=== PATIENT | female | born 1970 | race Two or more races ===

== ENCOUNTER 2018-09-12 04:57 | Inpatient (IN) | payer OTHER ==
--- NOTE | 2018-09-12 07:28 | HP ---
Admitting History and Physical - Admission Chief Complaint: Pelvic pain History of Present Illness: 48 yo Para3, with pelvic pain is pre op for vaginal hysterectomy. History Source: Patient Limitations to Obtaining History: No Limitations - Past Medical History ...LMP: 09/01/18 ...: No ...Para: 3 - Past Surgical History Past Surgical History: Yes: Cholecystectomy - Smoking History Smoking history: Never smoked Have you smoked in the past 12 months: No - Alcohol/Substance Use Hx Alcohol Use: Yes (RARELY) Home Medications - Allergies Allergies/Adverse Reactions: Allergies Allergy/AdvReac Type Severity Reaction Status Date / Time Penicillins Allergy Severe Swelling Verified 09/12/18 06:57 - Home Medications Home Medications: Ambulatory Orders Ibuprofen [Motrin -] 400 mg PO PRN PRN 09/05/18 Naproxen 250 mg PO PRN PRN 09/05/18 Sumatriptan Succinate 100 mg PO PRN PRN 09/05/18 Acetaminophen [Tylenol -] 500 mg PO Q6H 09/12/18 Family Disease History - Family Disease History Family History: Unremarkable Review of Systems - Review of Systems Constitutional: reports: No Symptoms Eyes: reports: No Symptoms HENT: reports: No Symptoms Neck: reports: No Symptoms Cardiovascular: reports: No Symptoms Respiratory: reports: No Symptoms Gastrointestinal: reports: No Symptoms Genitourinary: reports: Pain Breasts: reports: No Symptoms Reported Musculoskeletal: reports: No Symptoms Integumentary: reports: No Symptoms Neurological: reports: No Symptoms Endocrine: reports: No Symptoms Hematology/Lymphatic: reports: No Symptoms Psychiatric: reports: No Symptoms Pain Intensity: 5 Physical Examination Vital Signs: Vital Signs Temperature 98.4 F 09/12/18 06:54 Pulse Rate 84 09/12/18 06:54 Respiratory Rate 16 09/12/18 06:54 Blood Pressure 131/71 09/12/18 06:54 O2 Sat by Pulse Oximetry (%) 99 09/12/18 06:57 Constitutional: Yes: Well Nourished Eyes: Yes: Conjunctiva Clear HENT: Yes: Atraumatic Neck: Yes: Supple Cardiovascular: Yes: Regular Rate and Rhythm Respiratory: Yes: Regular Gastrointestinal: Yes: Normal Bowel Sounds ...Rectal Exam: Yes: WNL Renal/: Yes: WNL Breast(s): Yes: WNL Musculoskeletal: Yes: WNL Extremities: Yes: WNL Wound/Incision: Yes: Well Approximated Neurological: Yes: Alert, Oriented ...Motor Strength: WNL Psychiatric: Yes: Alert, Oriented Problem List - Problems (1) Pelvic pain Code(s): R10.2 - PELVIC AND PERINEAL PAIN Assessment/Plan Pelvic pain Pre op for TVH Consent signed Anesthesia to see patient
[2018-09-12] MEDS ORDERED: fentaNYL CITRATE 250 MCG/5 ML VIAL ONE (07:33)
[2018-09-12] MEDS ORDERED: LIDOCAINE HCL/PF 2% SDV 5ML VIAL ONE (07:33)
[2018-09-12] MEDS ORDERED: MIDAZOLAM HCL 2 MG/2 ML SINGLE DOSE VIAL ONE (07:34)
[2018-09-12] MEDS ORDERED: PROPOFOL 20 ML ONE ×2 (07:34)
[2018-09-12] MEDS ORDERED: ROCURONIUM BROMIDE 50 MG/5 ML SYRINGE ONE (07:34)
[2018-09-12] MEDS ORDERED: CLINDAMYCIN 600 MG PREMIX BAG IVPB ONE (07:39)
[2018-09-12] MEDS ORDERED: GENTAMICIN 80MG PREMIX BAG IVPB ONE (07:39)
[2018-09-12] MEDS ORDERED: GENTAMICIN SO4 80 MG/2 ML VIAL ONE (07:51)
[2018-09-12] MEDS ORDERED: DEXAMETHASONE SOD PHOSPHATE 4 MG/1 ML VIAL ONE (08:20)
[2018-09-12] MEDS ORDERED: CLINDAMYCIN PHOSPHATE 600 MG/4 ML VIAL ONE (08:20)
[2018-09-12] MEDS ORDERED: GLYCOPYRROLATE 0.2 MG/1 ML VIAL ONE (08:54)
[2018-09-12] MEDS ORDERED: NEOSTIGMINE METHYLSULFATE 0.5 MG/ML - 10 ML MDV ONE (08:54)
[2018-09-12] MEDS ORDERED: IBUPROFEN 800 MG/8 ML IJ IVPB PRN ×2 (09:09→09:23)
[2018-09-12] MEDS ORDERED: oxyCODONE HCL 5 MG TABLET PO PRN (09:09)
[2018-09-12] MEDS ORDERED: SUMAtriptan SUCCINATE 50 MG TABLET PO PRN (09:13)
[2018-09-12] MEDS ORDERED: DEXTROSE 5%-LACTATED RINGERS 1,000 ML IV SCH (09:15)
--- NOTE | 2018-09-12 09:15 | OP ---
Operative Note - Note: Operative Date: 09/12/18 Pre-Operative Diagnosis: Pelvic pain Operation: Total vaginal hysterectomy Findings: Leiomyomatous uterus Post-Operative Diagnosis: Other (Leiomyomatous uterus) Surgeon: Shani Guerrero Print Line Supervisor: Ezio Evans Anesthesia: General Specimens Removed: Uterus / cervix Estimated Blood Loss (mls): 200
[2018-09-12] MEDS ORDERED: PROMETHAZINE HCL 25 MG/1 ML VIAL IVPUSH PRN (09:23)
[2018-09-12] MEDS ORDERED: ONDANSETRON 4 MG/2 ML VIAL IVPUSH PRN (09:23)
[2018-09-12] MEDS ORDERED: PROMETHAZINE HCL 25 MG/1 ML VIAL ONE (09:23)
[2018-09-12] MEDS ORDERED: ACETAMINOPHEN 1000 MG/100 ML VIAL (NON FORMULARY) IVPB PRN (09:24)
[2018-09-12] MEDS ORDERED: FAMOTIDINE 20 MG/50 ML IVPB 20 MG/50 ML MG IVPB ONE ×2 (09:24)
[2018-09-12] MEDS ORDERED: ACETAMINOPHEN INJECTION 100 ML IVPB ONE (09:26)
[2018-09-12] MEDS ORDERED: LACTATED RINGERS SOLUTION 1,000 ML IV SCH (09:30)
[2018-09-12] MEDS ORDERED: PROMETHAZINE HCL 25 MG/1 ML VIAL IVPB ONE (09:45)
[2018-09-12] MEDS ORDERED: ACETAMINOPHEN 1000 MG/100 ML VIAL (NON FORMULARY) IVPB ONE (10:00)
[2018-09-12] MEDS ORDERED: IBUPROFEN 800 MG/8 ML IJ IVPB ONE (11:00)
--- NOTE | 2018-09-12 11:21 | PN ---
Progress Note (short form) - Note Progress Note: I assisted at the surgery throughout the entirety of the case.
[2018-09-12 13:37] LABS: HEMOGLOBIN 8.9 GM/dL (10.7-15.3); MEAN CELL VOLUME 94.2 fl (80-96)
[2018-09-12 13:45] LABS: HEMATOCRIT 26.3 % (32.4-45.2); MEAN PLT VOLUME 8.2 fl (7.5-11.1); PLATELET COUNT 293 K/MM3 (134-434); RBC 2.79 M/mm3 (3.60-5.2); RDW 12.7 % (11.6-15.6); WHITE BLOOD COUNT 14.1 K/mm3 (4.0-10.0)
--- NOTE | 2018-09-12 19:55 | PN ---
Progress Note (short form) - Note Progress Note: Patient seen and evaluated, she c/o pain under the rib cage upon breathing. She has a nasal cannula in place. Vitals are stable. She denies any SOB. PE : Chest : CTA, no rales ABD : Soft, no distention Pelvis : Vaginal packing in place, no bleeding. Lerma catheter in place A/P : Status post vaginal hysterectomy Chest / Abdominal pain F/U repeat CBC F/U chest / Abdominal CT Increase dosage of Percocet Continue close monitoring Problem List - Problems (1) Pelvic pain Code(s): R10.2 - PELVIC AND PERINEAL PAIN
[2018-09-12] MEDS: oxyCODONE HCL 5 MG TABLET PO PRN (20:26)
[2018-09-12] MEDS: ACETAMINOPHEN 325 MG TABLET (FP) PO PRN (20:27)
[2018-09-12 21:02] LABS: BASO % 0.1 % (0-2.0); HEMATOCRIT 23.1 % (32.4-45.2); HEMOGLOBIN 7.9 GM/dL (10.7-15.3); LYMPH % 5.4 % (8-40); MCH 31.5 pg (25.7-33.7); MEAN CELL VOLUME 92.5 fl (80-96); MEAN PLT VOLUME 8.2 fl (7.5-11.1); MONO % 4.9 % (3.8-10.2); NEUT % 89.6 % (42.8-82.8); PLATELET COUNT 271 K/MM3 (134-434); WHITE BLOOD COUNT 14.7 K/mm3 (4.0-10.0)
[2018-09-13] MEDS: ACETAMINOPHEN 325 MG TABLET (FP) PO PRN (00:30)
[2018-09-13] MEDS: oxyCODONE HCL 5 MG TABLET PO PRN ×2 (00:30→21:47)
[2018-09-13] MEDS ORDERED: GENTAMICIN SO4 80 MG/2 ML VIAL IVPB ONE (02:45)
[2018-09-13] MEDS ORDERED: CLINDAMYCIN 600MG PREMIX IVPB 600 MG/50 ML BAG IVPB ONE (02:45)
[2018-09-13] MEDS ORDERED: SIMETHICONE 80 MG TAB.CHEW (FP) PO SCH (06:00)
[2018-09-13 07:54] LABS: BASO % 0.3 % (0-2.0); EOS % 0.2 % (0-4.5); HEMATOCRIT 19.6 % (32.4-45.2); LYMPH % 11.9 % (8-40); MCH 32.1 pg (25.7-33.7); MCHC 34.2 g/dl (32.0-36.0); MEAN PLT VOLUME 8.2 fl (7.5-11.1); MONO % 6.7 % (3.8-10.2); NEUT % 80.9 % (42.8-82.8); PLATELET COUNT 232 K/MM3 (134-434); RBC 2.08 M/mm3 (3.60-5.2); RDW 12.9 % (11.6-15.6); WHITE BLOOD COUNT 12.1 K/mm3 (4.0-10.0)
[2018-09-13] MEDS: MORPHINE SULFATE 2 MG/ML VIAL IVPUSH PRN ×4 (08:58→19:21)
[2018-09-13 09:19] LABS: HEMOGLOBIN 6.7 GM/dL (10.7-15.3)
--- NOTE | 2018-09-13 09:29 | PN ---
Teaching Attending Note Name of Resident: Shakira Garcia ATTENDING PHYSICIAN STATEMENT I saw and evaluated the patient. I reviewed the resident's note and discussed the case with the resident. I agree with the resident's findings and plan as documented. SUBJECTIVE: Consult: Acute shortness of breath s/p POD #1 vaginal hysterectomy Patient is a 48 year old female with a one day hx of vaginal hysterectomy c/o having shortness of breath and unable to take deep breaths. OBJECTIVE: Vital Signs Temperature 98.4 F 09/13/18 06:00 Pulse Rate 101 H 09/13/18 06:00 Respiratory Rate 18 09/13/18 06:00 Blood Pressure 104/64 09/13/18 06:00 O2 Sat by Pulse Oximetry (%) 96 09/12/18 23:00 GENERAL: The patient is awake, alert, and fully oriented, in no acute distress. HEAD: Normal with no signs of trauma. EYES: PERRL, extraocular movements intact, sclera anicteric, conjunctiva clear. ENT: Ears normal, oropharynx clear without exudates, moist mucous membranes. NECK: Trachea midline, full range of motion, supple. LUNGS: Breath sounds equal, clear to auscultation bilaterally, no wheezes, no crackles, no accessory muscle use. HEART: Regular rate and rhythm, S1, S2 without murmur, rub or gallop. ABDOMEN: Soft, nontender, nondistended, normoactive bowel sounds, no guarding, no rebound, no hepatosplenomegaly, no masses. EXTREMITIES: 2+ pulses, warm, well-perfused, no edema. NEUROLOGICAL: Cranial nerves II through XII grossly intact. Normal speech, gait not observed. PSYCH: Normal mood, normal affect. SKIN: Warm, dry, normal turgor, no rashes or lesions noted CBCD WBC 12.1 K/mm3 (4.0-10.0) H 09/13/18 06:25 RBC 2.08 M/mm3 (3.60-5.2) L 09/13/18 06:25 Hgb 6.7 GM/dL (10.7-15.3) L* 09/13/18 06:25 Hct 19.6 % (32.4-45.2) L D 09/13/18 06:25 MCV 94.0 fl (80-96) 09/13/18 06:25 MCHC 34.2 g/dl (32.0-36.0) 09/13/18 06:25 RDW 12.9 % (11.6-15.6) 09/13/18 06:25 Plt Count 232 K/MM3 (134-434) 09/13/18 06:25 MPV 8.2 fl (7.5-11.1) 09/13/18 06:25 Current Medications Generic Name Dose Route Start Last Admin Trade Name Freq PRN Reason Stop Dose Admin Acetaminophen 1,000 mg 09/12/18 09:24 09/12/18 15:51 Ofirmev Injection - IVPB 1,000 mg Q6H PRN Administration FEVER Acetaminophen 650 mg 09/12/18 20:12 09/13/18 00:30 Tylenol - PO 650 mg Q4H PRN Administration PAIN 1-5 Fentanyl 50 mcg 09/12/18 09:23 Sublimaze Injection - IVPUSH [id number] PRN PAIN-PACU ORDER X 4 DOSES ONLY Dextrose/Lactated Ringer's 1,000 mls @ 125 mls/hr 09/12/18 09:15 09/12/18 15: 50 D5-Lr - IV 125 mls/hr ASDIR JUDY Administration Lactated Ringer's 1,000 mls @ 125 mls/hr 09/12/18 09:30 09/12/18 15:50 Lactated Ringers Solution IV Not Given ASDIR JUDY Ibuprofen 800 mg 09/12/18 09:09 Caldolor Injection - IVPB Q8H PRN FEVER Ibuprofen 800 mg 09/12/18 09:23 Caldolor Injection - IVPB Q6H PRN Pain - Pacu Morphine Sulfate 2 mg 09/13/18 08:45 09/13/18 08:58 Morphine Sulfate IVPUSH 2 mg Q3H PRN Administration PAIN LEVEL 6-10 Ondansetron HCl 4 mg 09/12/18 09:23 Zofran Injection IVPUSH Q6H PRN NAUSEA AND/OR VOMITING Oxycodone HCl 5 mg 09/12/18 09:09 09/12/18 17:04 Roxicodone - PO 5 mg Q4H PRN Administration PAIN LEVEL 4 - 6 Oxycodone HCl 10 mg 09/12/18 20:12 09/13/18 00:30 Roxicodone - PO 10 mg Q4H PRN Administration PAIN 1-5 Promethazine HCl 12.5 mg 09/12/18 09:23 Phenergan Injection - IVPUSH Q6H PRN NAUSEA-FOR RESCUE AFTER 15 MIN Simethicone 80 mg 09/13/18 06:00 Mylicon - PO TID JUDY Sumatriptan Succinate 100 mg 09/12/18 09:13 Imitrex - PO DAILY PRN HEADACHE ASSESSMENT AND PLAN: Patient is a 48 year old female with a one day hx of vaginal hysterectomy c/o having shortness of breath and unable to take deep breaths. #POD #1 Status post vaginal hysterectomy c/o having shortness of breath stat CTA of the chest and abdomen and pelvis ordered, type and screen and transfuse 2 units of PRBC. discussed with , will see the patient , and discussed with , will transfer the patient to ICU. will transfuse 2 units of PrBC. when stable to CTA of the chest and Pelvis. DVT Px; Teds
--- NOTE | 2018-09-13 10:27 | CONSULT ---
Consultation: REQUESTING PROVIDER:Dr. Guerrero CONSULT REQUEST: We have been asked to medically evaluate this patient for SOB. HISTORY OF PRESENT ILLNESS: Patient is a 48 year old female with past medical history of endometriosis, migraines, POD 1 total vaginal hysterectomy for leiomyoma uteri, presents with difficulty breathing and pleuritic chest pain. Patient reported since the surgery yesterday, she has been having difficulty breathing because of pleuritic pain every time she takes deep breaths. She also reports feeling tight around her upper abdomen. She could not tolerate incentive spirometry ( could only do 500cc) because of the pain and becomes tachycardic to 120s. Patient has not passed flatus/bowel movement. Patient denies any fever, chills , headache, palpitations. REVIEW OF SYSTEMS: CONSTITUTIONAL: Absent: fever, chills, diaphoresis, generalized weakness, malaise, loss of appetite, weight change HEENT: Absent: rhinorrhea, nasal congestion, throat pain, throat swelling, difficulty swallowing, mouth swelling, ear pain, eye pain, visual changes CARDIOVASCULAR: Absent: chest pain, syncope, palpitations, irregular heart rate, lightheadedness , peripheral edema RESPIRATORY: shortness of breath, pleuritic pain Absent: cough, dyspnea with exertion, orthopnea, wheezing, stridor, hemoptysis GASTROINTESTINAL:abdominal pain Absent: abdominal distension, nausea, vomiting, diarrhea, constipation, melena, hematochezia GENITOURINARY: Absent: dysuria, frequency, urgency, hesitancy, hematuria, flank pain, genital pain MUSCULOSKELETAL: Absent: myalgia, arthralgia, joint swelling, back pain, neck pain SKIN: Absent: rash, itching, pallor HEMATOLOGIC/IMMUNOLOGIC: Absent: easy bleeding, easy bruising, lymphadenopathy, frequent infections ENDOCRINE: Absent: unexplained weight gain, unexplained weight loss, heat intolerance, cold intolerance NEUROLOGIC: Absent: headache, focal weakness or paresthesias, dizziness, unsteady gait, seizure, mental status changes, bladder or bowel incontinence PSYCHIATRIC: Absent: anxiety, depression, suicidal or homicidal ideation, hallucinations. PHYSICAL EXAMINATION Vital Signs - 24 hr 09/12/18 09/12/18 09/12/18 12:15 12:30 12:37 Temperature F L Pulse Rate 70 71 Respiratory 13 14 Rate Blood Pressure 101/56 L 118/60 O2 Sat by Pulse 100 100 Oximetry (%) 07/09/12/18 09/12/18 12:45 13:00 13:15 Temperature Pulse Rate 69 70 68 Respiratory 13 13 16 Rate Blood Pressure 111/62 96/66 110/64 O2 Sat by Pulse 100 100 100 Oximetry (%) 09/12/18 09/12/18 09/12/18 13:30 13:45 14:00 Temperature Pulse Rate 70 68 72 Respiratory 16 16 16 Rate Blood Pressure 108/66 107/64 110/62 O2 Sat by Pulse 100 100 100 Oximetry (%) 09/12/18 09/12/18 09/12/18 14:15 15:48 18:28 Temperature 98.5 F 98.4 F 98.4 F Pulse Rate 70 85 85 Respiratory 16 17 18 Rate Blood Pressure 100/68 118/68 118/68 O2 Sat by Pulse 100 100 Oximetry (%) 09/12/18 09/12/18 09/13/18 18:30 23:00 00:05 Temperature 98.4 F Pulse Rate 105 H Respiratory 18 18 16 Rate Blood Pressure 112/59 L O2 Sat by Pulse 100 96 Oximetry (%) 09/13/18 09/13/18 09/13/18 02:00 04:00 06:00 Temperature 98.7 F 99.0 F 98.4 F Pulse Rate 102 H 104 H 101 H Respiratory 18 18 18 Rate Blood Pressure 105/63 117/68 104/64 O2 Sat by Pulse Oximetry (%) GENERAL: Awake, alert, and fully oriented, in mild distress. HEAD: Normal with no signs of trauma. EYES: PERRLA, EOMI, sclera anicteric, conjunctiva clear. EARS, NOSE, THROAT: +pale, dry mucous membranes. NECK: Normal range of motion, supple. LUNGS: Decreased breath sounds bilateral bases HEART: Regular rate and rhythm, normal S1 and S2 without murmur, rub or gallop. ABDOMEN: +diffuse tenderness, NABS MUSCULOSKELETAL: Normal range of motion at all joints. UPPER EXTREMITIES: 2+ pulses, warm, well-perfused. No peripheral edema. LOWER EXTREMITIES: 2+ pulses, warm, well-perfused. No peripheral edema. NEUROLOGICAL: Cranial nerves II-XII intact. Normal speech. PSYCHIATRIC: Cooperative. Good eye contact. Appropriate mood and affect. SKIN: Warm, dry, normal turgor, no rashes or lesions noted. Laboratory Results - last 24 hr 09/12/18 09/12/18 09/12/18 06:14 13:15 20:00 WBC 14.1 H 14.7 H RBC 2.79 L 2.50 L Hgb 8.9 L 7.9 L Hct 26.3 L D 23.1 L MCV 94.2 92.5 MCH 32.0 31.5 MCHC 34.0 34.0 RDW 12.7 13.0 Plt Count 293 271 MPV 8.2 8.2 Absolute Neuts (auto) 13.2 H Neutrophils % 89.6 H D Lymphocytes % 5.4 L D Monocytes % 4.9 Eosinophils % 0.0 D Basophils % 0.1 Nucleated RBC % 0 Crossmatch See Detail 09/13/18 06:25 WBC 12.1 H RBC 2.08 L Hgb 6.7 L* Hct 19.6 L D MCV 94.0 MCH 32.1 MCHC 34.2 RDW 12.9 Plt Count 232 MPV 8.2 Absolute Neuts (auto) 9.8 H Neutrophils % 80.9 Lymphocytes % 11.9 D Monocytes % 6.7 Eosinophils % 0.2 D Basophils % 0.3 Nucleated RBC % 0 Crossmatch Active Medications Generic Name Dose Route Start Last Admin Trade Name Freq PRN Reason Stop Dose Admin Acetaminophen 1,000 mg 09/12/18 09:24 09/12/18 15:51 Ofirmev Injection - IVPB 1,000 mg Q6H PRN Administration FEVER Acetaminophen 650 mg 09/12/18 20:12 09/13/18 00:30 Tylenol - PO 650 mg Q4H PRN Administration PAIN 1-5 Fentanyl 50 mcg 09/12/18 09:23 Sublimaze Injection - IVPUSH [id number] PRN PAIN-PACU ORDER X 4 DOSES ONLY Dextrose/Lactated Ringer's 1,000 mls @ 125 mls/hr 09/12/18 09:15 09/12/18 15: 50 D5-Lr - IV 125 mls/hr ASDIR JUDY Administration Lactated Ringer's 1,000 mls @ 125 mls/hr 09/12/18 09:30 09/12/18 15:50 Lactated Ringers Solution IV Not Given ASDIR JUDY Ibuprofen 800 mg 09/12/18 09:09 Caldolor Injection - IVPB Q8H PRN FEVER Ibuprofen 800 mg 09/12/18 09:23 Caldolor Injection - IVPB Q6H PRN Pain - Pacu Morphine Sulfate 2 mg 09/13/18 08:45 09/13/18 08:58 Morphine Sulfate IVPUSH 2 mg Q3H PRN Administration PAIN LEVEL 6-10 Ondansetron HCl 4 mg 09/12/18 09:23 Zofran Injection IVPUSH Q6H PRN NAUSEA AND/OR VOMITING Oxycodone HCl 5 mg 09/12/18 09:09 09/12/18 17:04 Roxicodone - PO 5 mg Q4H PRN Administration PAIN LEVEL 4 - 6 Oxycodone HCl 10 mg 09/12/18 20:12 09/13/18 00:30 Roxicodone - PO 10 mg Q4H PRN Administration PAIN 1-5 Promethazine HCl 12.5 mg 09/12/18 09:23 Phenergan Injection - IVPUSH Q6H PRN NAUSEA-FOR RESCUE AFTER 15 MIN Simethicone 80 mg 09/13/18 06:00 Mylicon - PO TID JUDY Sumatriptan Succinate 100 mg 09/12/18 09:13 Imitrex - PO DAILY PRN HEADACHE ASSESSMENT/PLAN: Patient is a 48 year old female with no significant past medical history, POD 1 total vaginal hysterectomy for leiomyoma uteri, presents with difficulty breathing and pleuritic chest pain. #SOB due to pleuritic pain, atelectasis -maintain O2 sat >90% -Will give IV Morphine 2mg q3h PRN for pain -CXR: pneumoperitoneum -Chest CT ordered -incentive spirometry q1h -CMP -PT/INR -Pulmonology (Dr. Fonseca) consulted. #Anemia 2/2 bleeding in abdomen/pelvis -Hgb dropped to 6.7 this morning. -Transfuse pRBCs PRN to keep Hgb >7.0 -CTAP (09/12): hemoperitoneum seen within the pelvis bilaterally. Additional isoattenuating free fluid within the abdomen and pelvis bilaterally. Nonspecific pneumoperitoneum. Very small bilateral pleural effusions. -SUrgery (Dr. Joseph) consulted. -Transfer to ICU for closer monitoring #FEN -IV LR @125cc/hr -BMP monitoring -NPO, diet as per OB/Surgery #Prophylaxis -SCDs Dispo: We will continue to follow the patient. Thank you for this consultative opportunity. Visit type - Emergency Visit Emergency Visit: Yes ED Registration Date: 09/12/18 Care time: The patient presented to the Emergency Department on the above date and was hospitalized for further evaluation of their emergent condition. - New Patient This patient is new to me today: Yes Date on this admission: 09/14/18 - Critical Care Critical Care patient: Yes Total Critical Care Time (in minutes): 35 Critical Care Statement: The care of this patient involved high complexity decision making to prevent further life threatening deterioration of the patient 's condition and/or to evaluate & treat vital organ system(s) failure or risk of failure. ATTENDING PHYSICIAN STATEMENT I saw and evaluated the patient. I reviewed the resident's note and discussed the case with the resident. I agree with the resident's findings and plan as documented. SUBJECTIVE: OBJECTIVE: ASSESSMENT AND PLAN:
[2018-09-13 10:47] LABS: INR 1.14 (0.83-1.09); PROTHROMBIN TIME (PATIENT) 13.5 SEC (9.7-13.0)
[2018-09-13 11:23] LABS: ALBUMIN 2.6 g/dl (3.4-5.0); BILIRUBIN,TOTAL 0.4 mg/dL (0.2-1); BLOOD UREA NITROGEN 7.4 mg/dL (7-18); CALCIUM 7.8 mg/dL (8.5-10.1); CREATININE 0.7 mg/dL (0.55-1.3); POTASSIUM 3.9 mmol/L (3.5-5.1)
--- NOTE | 2018-09-13 11:45 | CONSULT ---
Consult Consult Specialty:: General Surgery Reason for Consultation:: post op pneumoperitoneum? and SOB - History of Present Illness Chief Complaint: SOB History of Present Illness: 48 yo no significant PMH Para3, with pelvic pain is pre op for vaginal hysterectomy. Called postop in consultation POD# s/p total vaginal hysterectomy. She had a ct scan showing hemo and pneumoperitonuim. She has been tachycardic mosto of the night. She has made inadequate urine. H&H dropped for 6 grams from a prepop 9 grams. She has cmoplaints of abdominal pain and diaphragmnatic irritation. - History Source History Provided By: Patient, Medical Record Limitations to Obtaining History: No Limitations - Past Medical History ...LMP: 09/01/18 ...: No - Past Surgical History Past Surgical History: Yes: Cholecystectomy - Alcohol/Substance Use Hx Alcohol Use: Yes (RARELY) - Smoking History Smoking history: Never smoked Have you smoked in the past 12 months: No Home Medications - Allergies Allergies/Adverse Reactions: Allergies Allergy/AdvReac Type Severity Reaction Status Date / Time Penicillins Allergy Severe Swelling Verified 09/12/18 06:57 - Home Medications Home Medications: Ambulatory Orders Ibuprofen [Motrin -] 400 mg PO PRN PRN 09/05/18 Naproxen 250 mg PO PRN PRN 09/05/18 Sumatriptan Succinate 100 mg PO PRN PRN 09/05/18 Acetaminophen [Tylenol -] 500 mg PO Q6H 09/12/18 Review of Systems - Review of Systems Constitutional: denies: Chills, Fever Eyes: denies: Blind Spots, Recent Change in Vision HENT: denies: Difficult Swallowing, Throat Pain Neck: denies: Decreased ROM, Tenderness Cardiovascular: denies: Chest Pain Respiratory: reports: SOB. denies: Cough Gastrointestinal: reports: Abdominal Pain. denies: Bloating, Constipation Genitourinary: denies: Discharge, Dysuria Breasts: reports: No Symptoms Reported. denies: Pain Musculoskeletal: denies: Back Pain, Joint Swelling, Muscle Weakness Integumentary: denies: Blister, Bruising, Lesions Neurological: denies: Syncope, Tremors Endocrine: denies: Unexplained Weight Gain, Unexplained Weight Loss Hematology/Lymphatic: denies: Easily Bruised, Excessive Bleeding Psychiatric: denies: Anxiety, Depression Physical Exam Vital Signs: Vital Signs Temperature 98.4 F 09/13/18 06:00 Pulse Rate 101 H 09/13/18 06:00 Respiratory Rate 18 09/13/18 06:00 Blood Pressure 104/64 09/13/18 06:00 O2 Sat by Pulse Oximetry (%) 96 09/12/18 23:00 Vital Signs Period Temp Pulse Resp BP Sys/Jeffery Pulse Ox Last 24 Hr F-99.0 F 68-125 13-18 96-144/56-72 96-100 Intake & Output 09/12/18 09/13/18 09/13/18 23:59 07:59 15:59 Intake Total 1350 Output Total 400 Balance 950 Intake: IV 1250 D5-Lr - 1,000 ml @ 125 1250 mls/hr IV ASDIR JUDY Rx#: [id number] IVPB 100 Output: Urine 400 Lerma 400 Other: Voiding Method Indwelling Catheter Toilet Constitutional: Yes: Well Nourished, No Distress, Calm Eyes: Yes: Conjunctiva Clear, EOM Intact HENT: Yes: Atraumatic, Normocephalic Neck: Yes: Supple, Trachea Midline Cardiovascular: Yes: Regular Rate and Rhythm, S1, S2 Respiratory: Yes: Regular, CTA Bilaterally Gastrointestinal: Yes: Normal Bowel Sounds, Soft. No: Tenderness (RUQ), Tenderness, Rebound Renal/: No: CVA Tenderness - Left, CVA Tenderness - Right Neurological: Yes: Alert, Oriented Psychiatric: Yes: Alert, Oriented Labs: CBC, BMP 09/13/18 06:25 09/13/18 10:20 Imaging - Results Cat Scan: Report Reviewed, Image Reviewed (hemo- and pneumo-peritonium) Problem List - Problems (1) Hemoperitoneum Assessment/Plan: 48 yo female with less then 24hrs ppost of from vaginal hysterectomy pneumoperitoniem and even a small amount of hemoperitoneium is not concerning post operative day one. However given trachycardia, low urine output, abdominal pain and SOB, drop in H&H i would consider the possibility of on going bleeding. Transfer to ICU NPO and IVF resuscitation trend CBC Transfuse as indicated Diesel Motor Mechanic re-evaluation is appreciated Agree with plan for IR embolization once stable No acue intervention from general surgery Thank you for the opportunity to participate in the care of this patient. Code(s): K66.1 - HEMOPERITONEUM (2) Pneumoperitoneum Code(s): K66.8 - OTHER SPECIFIED DISORDERS OF PERITONEUM (3) Abdominal pain in female patient Code(s): R10.9 - UNSPECIFIED ABDOMINAL PAIN (4) H/O total vaginal hysterectomy Code(s): Z90.710 - ACQUIRED ABSENCE OF BOTH CERVIX AND UTERUS
--- NOTE | 2018-09-13 11:51 | OP ---
DATE OF OPERATION: 09/12/2018 PREOPERATIVE DIAGNOSIS: Pelvic pain. POSTOPERATIVE DIAGNOSES: Pelvic pain, leiomyoma of the uterus. PROCEDURE: Total vaginal hysterectomy. SURGEON: Shani Guerrero MD HUNTING SALES ASSOCIATE: ANESTHESIA: General. ESTIMATED BLOOD LOSS: 200 mL. DESCRIPTION OF PROCEDURE: Patient was taken to the operating room, where general anesthesia was administered. Patient was then placed in lithotomy position. She was then prepped and draped in appropriate sterile fashion. A weighted speculum was placed in the vagina and the cervix grasped with 2 sweethearts. The cervix was then injected circumferentially with Pitressin. The cervix was then circumferentially incised with the Bovie cautery, and the bladder was dissected off the pubovesical cervical fascia anteriorly with the sponge-stick and Metzenbaum scissors. The anterior cul-de-sac was entered sharply. The same procedure was performed posteriorly, and the posterior cul-de-sac was entered sharply with the Rausch scissors. At this point, a Johnie clamp was placed over the uterosacral ligament on either side. These ligaments were then clamped using the LigaSure device, burned, and cut. The cardinal ligaments were then clamped on both sides using the LigaSure device in a similar fashion. Then, the uterine arteries and the broad ligaments were then serially clamped, burned, and cut using the LigaSure device on both sides. Attempt to reach the cornua was difficult because of the enlarged irregular-shaped myomatous uterus. Then, on the left side, a Lachelle was placed over the cornu, but on the left side, the uterus was detached before cutting, and then, on the right side, a long Lachelle was placed over the cornu, and using the LigaSure device, it was clamped and burned and cut and also a suture was placed. The myomatous uterus was then removed, and Lachelle clamps were placed over the edge of the vagina, and hemostasis was obtained using several sutures over the pedicles. Then, hemostasis was assured. So, then, the vaginal cuff angles were closed with figure-of-8 stitches of 0 Vicryl in a running fashion. The vagina was then completely irrigated and a 1-inch Iodoform packing was then placed in the vagina. All instruments were removed from the vagina, and the patient was taken out of dorsal lithotomy position and awakened from general anesthesia. She was taken to PACU in stable condition. Sponge, lap, needle, and instrument counts were correct x2. SHANI GUERRERO M.D. [id number]
[2018-09-13] MEDS ORDERED: morphine SULFATE 4 MG/ML VIAL IVPUSH ONE (12:33)
[2018-09-13 12:46] LABS: MCH 31.5 pg (25.7-33.7); MCHC 33.5 g/dl (32.0-36.0); MEAN CELL VOLUME 94.1 fl (80-96); MEAN PLT VOLUME 7.3 fl (7.5-11.1); PLATELET COUNT 219 K/MM3 (134-434); RBC 1.92 M/mm3 (3.60-5.2)
[2018-09-13] MEDS ORDERED: SUMAtriptan SUCCINATE 50 MG TABLET PO PRN (12:55)
[2018-09-13] MEDS ORDERED: LACTATED RINGERS SOLUTION 1,000 ML IV SCH (12:55)
[2018-09-13] MEDS ORDERED: DEXTROSE 5%-LACTATED RINGERS 1,000 ML IV SCH (12:55)
[2018-09-13] MEDS ORDERED: ACETAMINOPHEN 325 MG TABLET (FP) PO PRN (12:55)
[2018-09-13 13:03] LABS: INR 1.23 (0.83-1.09); PROTHROMBIN TIME (PATIENT) 14.6 SEC (9.7-13.0)
[2018-09-13 13:06] LABS: ACTIVATED PTT 24.8 SECONDS (25.2-36.5)
--- NOTE | 2018-09-13 13:22 | CONSULT ---
Consultation: REQUESTING PROVIDER: Dr. Shepard CONSULT REQUEST: We have been asked to medically evaluate this patient for ICU management of suspected intraperitoneal bleed. HISTORY OF PRESENT ILLNESS: Pt. is a 48 y.o. F w/ PMHx. of Endometriosis, uterine fibroids, and Migraines presents to ICU on POD#1 from transvaginal hysterectomy. Pt. states that she was having increased menstrual cycle before the procedure (5-7 days of menstruation, usually 4 days and 4-5 soaked pads daily). Pt. states that she was "fine" just before the surgery however a few hours after the surgery she has developed severe and worsening abdominal pain that started in the RUQ and has since extended across the superior aspect of the abdomen and not present in the lower aspect of the abdomen. Pt. states that she has shortness of breath because of pain associated with breathing and pain with movement. Pt. endorses 21 lbs. weight loss from january to March and has not regained the weight. Pt. endorses decreased appetite since January. Pt. endorses intermittent night sweats over the last 2 months. Pt. endorses lightheadedness and dizziness that started with the worsening abdominal pain. Pt. denies chest pain at this time. Per chart review Pt. has had 200-500ml of estimated blood loss during the procedure and did not require any transfusions. REVIEW OF SYSTEMS: As per HPI PHYSICAL EXAMINATION Vital Signs - 24 hr 09/12/18 09/12/18 09/12/18 13:30 13:45 14:00 Temperature Pulse Rate 70 68 72 Respiratory 16 16 16 Rate Blood Pressure 108/66 107/64 110/62 O2 Sat by Pulse 100 100 100 Oximetry (%) 09/12/18 09/12/18 09/12/18 14:15 15:48 18:28 Temperature 98.5 F 98.4 F 98.4 F Pulse Rate 70 85 85 Respiratory 16 17 18 Rate Blood Pressure 100/68 118/68 118/68 O2 Sat by Pulse 100 100 Oximetry (%) 09/12/18 09/12/18 09/13/18 18:30 23:00 00:05 Temperature 98.4 F Pulse Rate 105 H Respiratory 18 18 16 Rate Blood Pressure 112/59 L O2 Sat by Pulse 100 96 Oximetry (%) 09/13/18 09/13/18 09/13/18 02:00 04:00 06:00 Temperature 98.7 F 99.0 F 98.4 F Pulse Rate 102 H 104 H 101 H Respiratory 18 18 18 Rate Blood Pressure 105/63 117/68 104/64 O2 Sat by Pulse Oximetry (%) 09/13/18 09/13/18 09/13/18 08:00 09:00 10:00 Temperature 98.0 F 98.0 F Pulse Rate 125 H 112 H Respiratory 18 16 16 Rate Blood Pressure 144/70 126/72 O2 Sat by Pulse 96 Oximetry (%) 09/13/18 12:30 Temperature 98.0 F Pulse Rate 118 H Respiratory 21 H Rate Blood Pressure 139/75 O2 Sat by Pulse Oximetry (%) GENERAL: Awake, alert, and fully oriented, in no acute distress. HEAD: Normal with no signs of trauma. EYES: Pupils equal, round and reactive to light, extraocular movements intact, sclera anicteric, conjunctiva clear. No lid lag. EARS, NOSE, THROAT: Ears normal, nares patent, oropharynx clear without exudates. Moist mucous membranes. NECK: Normal range of motion, supple without lymphadenopathy, JVD, or masses. LUNGS: Breath sounds equal, clear to auscultation bilaterally. No wheezes, and no crackles. No accessory muscle use. HEART: Regular rate and rhythm, normal S1 and S2 without murmur, rub or gallop. ABDOMEN: Soft, nontender, not distended, normoactive bowel sounds, no guarding, no rebound, no masses. No hepatomegaly or splenomegaly. MUSCULOSKELETAL: Normal range of motion at all joints. No bony deformities or tenderness. No CVA tenderness. UPPER EXTREMITIES: 2+ pulses, warm, well-perfused. No cyanosis. No clubbing. Cap refill <2 seconds. No peripheral edema. LOWER EXTREMITIES: 2+ pulses, warm, well-perfused. No calf tenderness. No peripheral edema. NEUROLOGICAL: Cranial nerves II-XII intact. Normal speech. Normal gait. PSYCHIATRIC: Cooperative. Good eye contact. Appropriate mood and affect. SKIN: Warm, dry, normal turgor, no rashes or lesions noted. Laboratory Results - last 24 hr 09/12/18 09/12/18 09/12/18 06:14 13:15 20:00 WBC 14.1 H 14.7 H RBC 2.79 L 2.50 L Hgb 8.9 L 7.9 L Hct 26.3 L D 23.1 L MCV 94.2 92.5 MCH 32.0 31.5 MCHC 34.0 34.0 RDW 12.7 13.0 Plt Count 293 271 MPV 8.2 8.2 Absolute Neuts (auto) 13.2 H Neutrophils % 89.6 H D Lymphocytes % 5.4 L D Monocytes % 4.9 Eosinophils % 0.0 D Basophils % 0.1 Nucleated RBC % 0 PT with INR INR PTT (Actin FS) Sodium Potassium Chloride Carbon Dioxide Anion Gap BUN Creatinine Est GFR (CKD-EPI)AfAm Est GFR (CKD-EPI)NonAf Random Glucose Calcium Total Bilirubin AST ALT Alkaline Phosphatase Total Protein Albumin Blood Type B POSITIVE Antibody Screen Negative Crossmatch See Detail 09/13/18 09/13/18 09/13/18 06:25 10:20 10:20 WBC 12.1 H RBC 2.08 L Hgb 6.7 L* Hct 19.6 L D MCV 94.0 MCH 32.1 MCHC 34.2 RDW 12.9 Plt Count 232 MPV 8.2 Absolute Neuts (auto) 9.8 H Neutrophils % 80.9 Lymphocytes % 11.9 D Monocytes % 6.7 Eosinophils % 0.2 D Basophils % 0.3 Nucleated RBC % 0 PT with INR 13.50 H INR 1.14 H PTT (Actin FS) Sodium 141 Potassium 3.9 Chloride 106 Carbon Dioxide 32 Anion Gap 3 L BUN 7.4 Creatinine 0.7 Est GFR (CKD-EPI)AfAm 120.43 Est GFR (CKD-EPI)NonAf 103.90 Random Glucose 115 H Calcium 7.8 L Total Bilirubin 0.4 AST 16 ALT 20 Alkaline Phosphatase 31 L Total Protein 5.0 L Albumin 2.6 L Blood Type Antibody Screen Crossmatch 09/13/18 09/13/18 12:36 12:36 WBC 12.0 H RBC 1.92 L Hgb 6.0 L* Hct 18.0 L MCV 94.1 MCH 31.5 MCHC 33.5 RDW 13.0 Plt Count 219 MPV 7.3 L D Absolute Neuts (auto) Neutrophils % Lymphocytes % Monocytes % Eosinophils % Basophils % Nucleated RBC % PT with INR 14.60 H INR 1.23 H PTT (Actin FS) 24.8 L Sodium Potassium Chloride Carbon Dioxide Anion Gap BUN Creatinine Est GFR (CKD-EPI)AfAm Est GFR (CKD-EPI)NonAf Random Glucose Calcium Total Bilirubin AST ALT Alkaline Phosphatase Total Protein Albumin Blood Type Antibody Screen Crossmatch Active Medications Current Medications Acetaminophen (Tylenol -) 650 mg PO Q4H PRN PRN Reason: PAIN 1-5 Acetaminophen (Ofirmev Injection -) 1,000 mg IVPB Q6H PRN PRN Reason: FEVER Chlorhexidine Gluconate (Hibiclens For Decolonization -) 1 applic TP HS JUDY Dextrose/Lactated Ringer's (D5-Lr -) 1,000 mls @ 125 mls/hr IV ASDIR JUDY Lactated Ringer's (Lactated Ringers Solution) 1,000 mls @ 125 mls/hr IV ASDIR JUDY Morphine Sulfate (Morphine Sulfate) 2 mg IVPUSH Q3H PRN PRN Reason: PAIN LEVEL 6-10 Mupirocin (Bactroban Ointment (For Decolonization) -) 1 applic NS BID JUDY Stop: 09/18/18 21:59 Ondansetron HCl (Zofran Injection) 4 mg IVPUSH Q6H PRN PRN Reason: NAUSEA AND/OR VOMITING Oxycodone HCl (Roxicodone -) 5 mg PO Q4H PRN PRN Reason: PAIN LEVEL 4 - 6 Oxycodone HCl (Roxicodone -) 10 mg PO Q4H PRN PRN Reason: PAIN 1-5 Promethazine HCl (Phenergan Injection -) 12.5 mg IVPUSH Q6H PRN PRN Reason: NAUSEA-FOR RESCUE AFTER 15 MIN Simethicone (Mylicon -) 80 mg PO TID [facility] Sumatriptan Succinate (Imitrex -) 100 mg PO DAILY PRN PRN Reason: HEADACHE ASSESSMENT/PLAN: Pt. is a 48 y.o. F w/ PMHx. of Endometriosis, uterine fibroids, and Migraines presents to ICU on POD#1 from transvaginal hysterectomy. #Gynecology/Cardiology POD# 1 s/p Transvaginal Hysterectomy Pt. had estimated 200-500cc blood loss Aggressive IVF Hgb: 6.7-->6.[address] Scan w/o contrast shows hemoperitoneum, pneumoperitonemum and small bilateral pleural effusions. c/w D5-LR- wide open c/w Morphine, Oxycodone (07/07), PO Tylenol for pain Ofirmev for fever Dr. Guerrero contacted for urgent re-evaluation for surgical intervention Dr. Joseph consulted for possible general surgical intervention CXR: shows pneumoperitoneum which is expected s/p abdominal surgery #Gastroenterology c/w Zofran and Phenergan for Nausea c/w Simethicone for gas and bloating Pt. is s/p cholecystectomy in February 2018 #Rheumatology c/w Sumatriptan 100mg PRN #FEN Aggressive IVF Hydration-- c/w D5-LR @ 125ml/hr monitor electrolytes and replete as needed NPO for possible surgical intervention later today Dispo: We will continue to follow the patient. Thank you for this consultative opportunity. Visit type - Emergency Visit Emergency Visit: Yes ED Registration Date: 09/12/18 Care time: The patient presented to the Emergency Department on the above date and was hospitalized for further evaluation of their emergent condition. - New Patient This patient is new to me today: Yes Date on this admission: 09/13/18 - Critical Care Critical Care patient: Yes Total Critical Care Time (in minutes): 55 Critical Care Statement: The care of this patient involved high complexity decision making to prevent further life threatening deterioration of the patient 's condition and/or to evaluate & treat vital organ system(s) failure or risk of failure. ATTENDING PHYSICIAN STATEMENT I saw and evaluated the patient. I reviewed the resident's note and discussed the case with the resident. I agree with the resident's findings and plan as documented. SUBJECTIVE: OBJECTIVE: ASSESSMENT AND PLAN:
[2018-09-13] MEDS: SIMETHICONE 80 MG TAB.CHEW (FP) PO SCH ×2 (14:18→21:47)
--- NOTE | 2018-09-13 14:32 | PN ---
Progress Note (short form) - Note Progress Note: Patient seen and evaluated in ICU. Status post vaginal hysterectomy. She continues to c/o pain under the rib cage upon breathing. She now c/o abdominal pain. She's tachycardic. Blood pressure is normal. Cat scan reviewed, there's evidence of hemoperitoneum and pneumoperitoneum. PE : ABD : + pain to palpation Pelvis : Vaginal packing removed, no bleeding. Lerma catheter in place A/P : Status post vaginal hysterectomy Chest pain Abdominal pain Severe anemia Penumoperitoneum / Hemoperitoneum Blood transfusion Consider embolization after once patient is stabilized. Interventional radiologist contacted. Problem List - Problems (1) Pelvic pain Code(s): R10.2 - PELVIC AND PERINEAL PAIN
[2018-09-13] MEDS ORDERED: MORPHINE SULFATE 2 MG/ML VIAL SQ ONE (14:51)
--- NOTE | 2018-09-13 14:56 | PN ---
Teaching Attending Note Name of Resident: Osiel Kirk ATTENDING PHYSICIAN STATEMENT I saw and evaluated the patient. I reviewed the resident's note and discussed the case with the resident. I agree with the resident's findings and plan as documented. SUBJECTIVE: Pt seen and examined in the ICU. Briefly, 48yo female with h/o endometriosis, fibroids who was admitted for elective transvaginal hysterectomy. Post op developed abdominal pain and shortness of breath. Reports that the abdominal pain is limiting her breathing. CT A/P done showing hemoperitoneum and pneumoperitoneum. Anemic to Hgb 6 today. OBJECTIVE: Vital Signs Period Temp Pulse Resp BP Sys/Jeffery Pulse Ox Last 24 Hr 98.0 F-99.0 F 85-125 16-21 104-144/59-75 96-100 Intake & Output 09/10/18 09/11/18 09/12/18 09/13/18 23:59 23:59 23:59 23:59 Intake Total 5200 1350 Output Total 1700 400 Balance 3500 950 Gen: uncomfortable, pale Heart: tachycardic, regular Lung: decreased breath sounds at the bases Abd: softly distended, tympanic Ext: no edema CBC, BMP 09/13/18 12:36 09/13/18 10:20 Active Medications Acetaminophen (Tylenol -) 650 mg PO Q4H PRN PRN Reason: PAIN 1-5 Acetaminophen (Ofirmev Injection -) 1,000 mg IVPB Q6H PRN PRN Reason: FEVER Chlorhexidine Gluconate (Hibiclens For Decolonization -) 1 applic TP HS JUDY Dextrose/Lactated Ringer's (D5-Lr -) 1,000 mls @ 125 mls/hr IV ASDIR JUDY Lactated Ringer's (Lactated Ringers Solution) 1,000 mls @ 125 mls/hr IV ASDIR JUDY Morphine Sulfate (Morphine Sulfate) 2 mg IVPUSH Q3H PRN PRN Reason: PAIN LEVEL 6-10 Mupirocin (Bactroban Ointment (For Decolonization) -) 1 applic NS BID JUDY Stop: 09/18/18 21:59 Ondansetron HCl (Zofran Injection) 4 mg IVPUSH Q6H PRN PRN Reason: NAUSEA AND/OR VOMITING Oxycodone HCl (Roxicodone -) 5 mg PO Q4H PRN PRN Reason: PAIN LEVEL 4 - 6 Oxycodone HCl (Roxicodone -) 10 mg PO Q4H PRN PRN Reason: PAIN 1-5 Promethazine HCl (Phenergan Injection -) 12.5 mg IVPUSH Q6H PRN PRN Reason: NAUSEA-FOR RESCUE AFTER 15 MIN Simethicone (Mylicon -) 80 mg PO TID [facility] Last Admin: 09/13/18 14:18 Dose: Not Given Sumatriptan Succinate (Imitrex -) 100 mg PO DAILY PRN PRN Reason: HEADACHE ASSESSMENT AND PLAN: Uterine Leiomyomas s/p Transvaginal Hysterectomy POD 1 Acute Blood Loss Anemia - pain control - transfuse PRBC - monitor H/H - CT A/P with contrast - gauge and weigh machine adjuster f/u - IVF - ensure large bore peripheral access - DVT prophylaxis - ICU monitoring critical care time spent in reviewing chart, evaluating patient and formulating plan 35 min
[2018-09-13] MEDS: ACETAMINOPHEN 1000 MG/100 ML VIAL (NON FORMULARY) IVPB PRN (15:10)
--- NOTE | 2018-09-13 15:29 | HOSP ---
Subjective - Review of Symptoms Subjective: Made aware that patient CXray read as pneumoperitoneum. Called pulmonology and surgery. In light of patients low hemoglobin likely a hemoperitoneum. Patient not stable enough to undergo CT scan. Blood pressure holding, but tachy at 130. Transfer orders for patient to be moved to ICU and discussed with ICU team. Patient reports pain and shortness of breath that has been worsening. Plan - discussed with nurse to start 2 units of transfusion, will continue to monitor hemoglobin - spoke with Dr Guerrero and she will come evaluate patient - discussed with surgery and Dr Joseph is aware of patient Physical Examination Vital Signs: Vital Signs Temperature 98.0 F 09/13/18 12:30 Pulse Rate 118 H 09/13/18 12:30 Respiratory Rate 21 H 09/13/18 12:30 Blood Pressure 139/75 09/13/18 12:30 O2 Sat by Pulse Oximetry (%) 96 09/13/18 09:00 Labs: CBC, BMP 09/13/18 12:36 09/13/18 10:20 Visit type - Emergency Visit Emergency Visit: No - New Patient This patient is new to me today: No - Critical Care Critical Care patient: No
--- NOTE | 2018-09-13 15:52 | PN ---
Progress Note (short form) - Note Progress Note: Anesthesia post op Pt seen and examined S:Alert and awake states pain in her groin O: Vital Signs Temperature 98.0 F 09/13/18 12:30 Pulse Rate 118 H 09/13/18 12:30 Respiratory Rate 21 H 09/13/18 12:30 Blood Pressure 139/75 09/13/18 12:30 O2 Sat by Pulse Oximetry (%) 96 09/13/18 09:00 CBC, BMP 09/13/18 12:36 09/13/18 10:20 A/P; Current Active Problems Abdominal pain in female patient (Acute) H/O total vaginal hysterectomy (Acute) Hemoperitoneum (Acute) Pelvic pain (Acute) Pneumoperitoneum (Acute) s/p Total vaginal hysterectomy hemoperitoneum Anemia Condition guarded. Receiving PRBC Dave Logan MD
[2018-09-13] MEDS: SODIUM CHLORIDE 1,000 ML IV SCH (16:26)
[2018-09-13] MEDS: ONDANSETRON 4 MG/2 ML VIAL IVPUSH PRN (18:50)
[2018-09-13 21:18] LABS: HEMATOCRIT 26.3 % (32.4-45.2); MCH 31.1 pg (25.7-33.7); MCHC 34.3 g/dl (32.0-36.0); MEAN CELL VOLUME 90.7 fl (80-96); MEAN PLT VOLUME 7.9 fl (7.5-11.1); PLATELET COUNT 201 K/MM3 (134-434); RDW 15.1 % (11.6-15.6); WHITE BLOOD COUNT 14.3 K/mm3 (4.0-10.0)
[2018-09-13] MEDS: MUPIROCIN 2% TOPICAL OINTMENT FOR DECOLONIZATION NS SCH (22:08)
[2018-09-13] MEDS: CHLORHEXIDINE GLUCONATE 4% CLEANSER FOR DECOLONIZATION TP SCH (22:08)
[2018-09-14] MEDS: oxyCODONE HCL 5 MG TABLET PO PRN ×5 (02:20→21:57)
[2018-09-14] MEDS: SIMETHICONE 80 MG TAB.CHEW (FP) PO SCH ×3 (05:24→21:17)
[2018-09-14 06:01] LABS: HEMATOCRIT 24.8 % (32.4-45.2); HEMOGLOBIN 8.7 GM/dL (10.7-15.3); MCH 31.7 pg (25.7-33.7); MCHC 35.1 g/dl (32.0-36.0); MEAN CELL VOLUME 90.3 fl (80-96); PLATELET COUNT 202 K/MM3 (134-434); RBC 2.75 M/mm3 (3.60-5.2); RDW 15.1 % (11.6-15.6); WHITE BLOOD COUNT 13.1 K/mm3 (4.0-10.0)
[2018-09-14 06:26] LABS: ALBUMIN 2.3 g/dl (3.4-5.0); BILIRUBIN,TOTAL 0.7 mg/dL (0.2-1); BLOOD UREA NITROGEN 5.2 mg/dL (7-18); CALCIUM 7.4 mg/dL (8.5-10.1); CREATININE 0.6 mg/dL (0.55-1.3); POTASSIUM 3.8 mmol/L (3.5-5.1); TOT PROT 4.8 g/dl (6.4-8.2)
--- NOTE | 2018-09-14 07:48 | PN ---
Progress Note, Physician History of Present Illness: 48 yo no significant PMH Para3, with pelvic pain is pre op for vaginal hysterectomy. Called postop in consultation POD# s/p total vaginal hysterectomy. She had a ct scan showing hemo and pneumoperitonuim. She has been tachycardic mosto of the night. She has made inadequate urine. H&H dropped for 6 grams from a prepop 9 grams. She has cmoplaints of abdominal pain and diaphragmnatic irritation. - Current Medication List Current Medications: Active Medications Acetaminophen (Tylenol -) 650 mg PO Q4H PRN PRN Reason: PAIN 1-5 Acetaminophen (Ofirmev Injection -) 1,000 mg IVPB Q6H PRN PRN Reason: FEVER Last Admin: 09/13/18 15:10 Dose: 1,000 mg Chlorhexidine Gluconate (Hibiclens For Decolonization -) 1 applic TP HS [facility] Last Admin: 09/13/18 22:08 Dose: 1 applic Sodium Chloride (Normal Saline -) 1,000 mls @ 200 mls/hr IV ASDIR JUDY Last Admin: 09/13/18 16:26 Dose: 200 mls/hr Metronidazole (Flagyl 500mg Premixed Ivpb -) 500 mg in 100 mls @ 100 mls/hr IVPB Q8H-IV JUDY Last Admin: 09/14/18 01:19 Dose: 100 mls/hr Levofloxacin (Levaquin 500 Mg Premixed Ivpb -) 500 mg in 100 mls @ 100 mls/hr IVPB DAILY [facility]; Protocol Last Admin: 09/13/18 22:06 Dose: 100 mls/hr Morphine Sulfate (Morphine Sulfate) 2 mg IVPUSH Q3H PRN PRN Reason: PAIN LEVEL 6-10 Last Admin: 09/13/18 19:21 Dose: 2 mg Mupirocin (Bactroban Ointment (For Decolonization) -) 1 applic NS BID JUDY Stop: 09/18/18 21:59 Last Admin: 09/13/18 22:08 Dose: 1 applic Ondansetron HCl (Zofran Injection) 4 mg IVPUSH Q6H PRN PRN Reason: NAUSEA AND/OR VOMITING Last Admin: 09/13/18 18:50 Dose: 4 mg Oxycodone HCl (Roxicodone -) 5 mg PO Q4H PRN PRN Reason: PAIN LEVEL 4 - 6 Oxycodone HCl (Roxicodone -) 10 mg PO Q4H PRN PRN Reason: PAIN 1-5 Last Admin: 09/14/18 07:35 Dose: 10 mg Promethazine HCl (Phenergan Injection -) 12.5 mg IVPUSH Q6H PRN PRN Reason: NAUSEA-FOR RESCUE AFTER 15 MIN Simethicone (Mylicon -) 80 mg PO TID JUDY Last Admin: 09/14/18 05:24 Dose: Not Given Sumatriptan Succinate (Imitrex -) 100 mg PO DAILY PRN PRN Reason: HEADACHE - Objective Vital Signs: Vital Signs Temperature 100.4 F H 09/13/18 18:15 Pulse Rate 99 H 09/14/18 06:00 Respiratory Rate 16 09/14/18 06:00 Blood Pressure 126/74 09/14/18 06:00 O2 Sat by Pulse Oximetry (%) 100 09/14/18 07:38 Vital Signs Period Temp Pulse Resp BP Sys/Jeffery Pulse Ox Last 24 Hr 98.2 F-99 F 92-112 14-24 116-144/68-88 100-100 Intake & Output 09/14/18 09/14/18 09/15/18 15:59 23:59 07:59 Intake Total 3100 Output Total 1900 1000 Balance 1200 -1000 Weight 152 lb Intake: IV 2800 Normal Saline - 1,000 ml 1000 @ 1000 mls/hr IV ASDIR STA Rx#:[id number] Normal Saline - 1,000 ml 1800 @ 200 mls/hr IV ASDIR JUDY Rx#:[id number] IVPB 300 Output: Urine 1900 1000 Lerma 1900 1000 Other: Voiding Method Indwelling Catheter Bowel Movement No Height 5 ft 6 in Body Mass Index (BMI) 24.5 Constitutional: Yes: Well Nourished, No Distress, Calm Eyes: Yes: Conjunctiva Clear, EOM Intact HENT: Yes: Atraumatic, Normocephalic Neck: Yes: Supple, Trachea Midline Cardiovascular: Yes: Regular Rate and Rhythm, S1, S2 Respiratory: Yes: Regular, CTA Bilaterally Gastrointestinal: Yes: Normal Bowel Sounds, Soft, Tenderness, Epigastrium ( improved from previous). No: Tenderness, Tenderness, Rebound ...Rectal Exam: Yes: Deferred Genitourinary: No: CVA Tenderness - Left, CVA Tenderness - Right Breast(s): No: Mass, Skin Changes, Other Musculoskeletal: No: Muscle Pain, Muscle Weakness Extremities: No: Cool, Cyanosis Edema: No Peripheral Pulses WNL: Yes Peripheral Pulses: Left Radial: 2+, Right Radial: 2+, Left Doralis Pedis: 2+, Right Dorsalis Pedis: 2+, Left Femoral: 2+, Right Femoral: 2+ Integumentary: No: Jaundice, Rash Wound/Incision: Yes: Clean/Dry, Well Approximated. No: Draining, Reddened Neurological: Yes: Alert, Oriented Psychiatric: Yes: Alert, Oriented Labs: CBC, BMP 09/14/18 05:10 09/14/18 05:10 INR, PTT INR 1.23 (0.83-1.09) H 09/13/18 12:36 Problem List - Problems (1) Hemoperitoneum Assessment/Plan: 48 yo female with less then 24hrs ppost of from vaginal hysterectomy pneumoperitoniem and even a small amount of hemoperitoneium is not concerning post operative day one. POD#2 s/p total vaginal hysterectomy patient abdominal pain is improved compared to previous. NPO and IVF hydration trend CBC ID consult for antibiotics Transfuse as indicated No acute intervention from general surgery will follow Code(s): K66.1 - HEMOPERITONEUM (2) Pneumoperitoneum Code(s): K66.8 - OTHER SPECIFIED DISORDERS OF PERITONEUM (3) Abdominal pain in female patient Code(s): R10.9 - UNSPECIFIED ABDOMINAL PAIN (4) H/O total vaginal hysterectomy Code(s): Z90.710 - ACQUIRED ABSENCE OF BOTH CERVIX AND UTERUS
--- NOTE | 2018-09-14 07:56 | PN ---
Physical Exam: SUBJECTIVE: Patient seen and examined by the [facility] OBJECTIVE: Vital Signs Period Temp Pulse Resp BP Sys/Jeffery Pulse Ox Last 24 Hr 98.0 F-100.4 F 99-125 16-28 122-144/65-88 96-100 GENERAL: The patient is awake, drowsy (pain meds), able to answer questions appropriately HEAD: Normal with no signs of trauma. EYES: PERRL NECK: Trachea midline, full range of motion, supple. LUNGS: decreased breath sounds B/L HEART: Regular rate and rhythm, S1, S2 without murmur, rub or gallop. ABDOMEN: Soft, diffuse tenderness, more in RLQ and LLQ, non distended EXTREMITIES: 2+ pulses, warm, well-perfused NEUROLOGICAL: Normal speech, gait not observed PSYCH: Normal mood, normal affect. Laboratory Results - last 24 hr 09/12/18 09/13/18 09/13/18 06:14 06:25 10:20 WBC 12.1 H RBC 2.08 L Hgb 6.7 L* Hct 19.6 L D MCV 94.0 MCH 32.1 MCHC 34.2 RDW 12.9 Plt Count 232 MPV 8.2 Absolute Neuts (auto) 9.8 H Neutrophils % 80.9 Lymphocytes % 11.9 D Monocytes % 6.7 Eosinophils % 0.2 D Basophils % 0.3 Nucleated RBC % 0 PT with INR 13.50 H INR 1.14 H PTT (Actin FS) Sodium Potassium Chloride Carbon Dioxide Anion Gap BUN Creatinine Est GFR (CKD-EPI)AfAm Est GFR (CKD-EPI)NonAf Random Glucose Calcium Total Bilirubin AST ALT Alkaline Phosphatase Total Protein Albumin Blood Type B POSITIVE Antibody Screen Negative Crossmatch See Detail 09/13/18 09/13/18 09/13/18 10:20 12:36 12:36 WBC 12.0 H RBC 1.92 L Hgb 6.0 L* Hct 18.0 L MCV 94.1 MCH 31.5 MCHC 33.5 RDW 13.0 Plt Count 219 MPV 7.3 L D Absolute Neuts (auto) Neutrophils % Lymphocytes % Monocytes % Eosinophils % Basophils % Nucleated RBC % PT with INR 14.60 H INR 1.23 H PTT (Actin FS) 24.8 L Sodium 141 Potassium 3.9 Chloride 106 Carbon Dioxide 32 Anion Gap 3 L BUN 7.4 Creatinine 0.7 Est GFR (CKD-EPI)AfAm 120.43 Est GFR (CKD-EPI)NonAf 103.90 Random Glucose 115 H Calcium 7.8 L Total Bilirubin 0.4 AST 16 ALT 20 Alkaline Phosphatase 31 L Total Protein 5.0 L Albumin 2.6 L Blood Type Antibody Screen Crossmatch 09/13/18 09/14/18 09/14/18 20:35 05:10 05:10 WBC 14.3 H 13.1 H RBC 2.90 L 2.75 L Hgb 9.0 L 8.7 L Hct 26.3 L D 24.8 L MCV 90.7 90.3 MCH 31.1 31.7 MCHC 34.3 35.1 RDW 15.1 D 15.1 Plt Count 201 202 MPV 7.9 8.0 Absolute Neuts (auto) Neutrophils % Lymphocytes % Monocytes % Eosinophils % Basophils % Nucleated RBC % PT with INR INR PTT (Actin FS) Sodium 140 Potassium 3.8 Chloride 106 Carbon Dioxide 29 Anion Gap 4 L BUN 5.2 L Creatinine 0.6 Est GFR (CKD-EPI)AfAm 126.69 Est GFR (CKD-EPI)NonAf 109.31 Random Glucose 82 Calcium 7.4 L Total Bilirubin 0.7 AST 13 L ALT 15 Alkaline Phosphatase 33 L Total Protein 4.8 L Albumin 2.3 L Blood Type Antibody Screen Crossmatch Current Medications Acetaminophen (Tylenol -) 650 mg PO Q4H PRN PRN Reason: PAIN 1-5 Chlorhexidine Gluconate (Hibiclens For Decolonization -) 1 applic TP HS JUDY Last Admin: 09/13/18 22:08 Dose: 1 applic Sodium Chloride (Normal Saline -) 1,000 mls @ 200 mls/hr IV ASDIR JUDY Last Admin: 09/14/18 14:47 Dose: 200 mls/hr Metronidazole (Flagyl 500mg Premixed Ivpb -) 500 mg in 100 mls @ 100 mls/hr IVPB Q8H-IV JUDY Last Admin: 09/14/18 09:14 Dose: 100 mls/hr Levofloxacin (Levaquin 500 Mg Premixed Ivpb -) 500 mg in 100 mls @ 100 mls/hr IVPB DAILY JUDY; Protocol Last Admin: 09/14/18 10:05 Dose: 100 mls/hr Morphine Sulfate (Morphine Sulfate) 2 mg IVPUSH Q3H PRN PRN Reason: PAIN LEVEL 6-10 Last Admin: 09/13/18 19:21 Dose: 2 mg Mupirocin (Bactroban Ointment (For Decolonization) -) 1 applic NS BID [facility] Stop: 09/18/18 21:59 Last Admin: 09/14/18 14:07 Dose: 1 applic Ondansetron HCl (Zofran Injection) 4 mg IVPUSH Q6H PRN PRN Reason: NAUSEA AND/OR VOMITING Last Admin: 09/13/18 18:50 Dose: 4 mg Oxycodone HCl (Roxicodone -) 5 mg PO Q4H PRN PRN Reason: PAIN LEVEL 4 - 6 Oxycodone HCl (Roxicodone -) 10 mg PO Q4H PRN PRN Reason: PAIN 1-5 Last Admin: 09/14/18 12:51 Dose: 10 mg Promethazine HCl (Phenergan Injection -) 12.5 mg IVPUSH Q6H PRN PRN Reason: NAUSEA-FOR RESCUE AFTER 15 MIN Simethicone (Mylicon -) 80 mg PO TID [facility] Last Admin: 09/14/18 14:13 Dose: 80 mg Sumatriptan Succinate (Imitrex -) 100 mg PO DAILY PRN PRN Reason: HEADACHE ASSESSMENT/PLAN: Pt. is a 48 y.o. F w/ PMHx. of Endometriosis, uterine fibroids, and Migraines presents to ICU on POD#1 from transvaginal hysterectomy. Post op RUQ pain radiating to upper abdomen Decreased appetite & 21lb weight loss since January. #Pleuritic and abdominal Pain - Pneumoperitoneum, hemoperitoneum - CT chest abdomen 09/13: increased size of pneumoperitoneum due to possible viscus perforation, free air in Rt adenexa; no interval change in intraperitoneal fluid in pelvis, no evidence of discrete bleeding site. B/L pleural effusions, increased bibasilar compressive atelectasis; no evidence of PE, 3mm Rt pulm nodule - decreased abdominal tenderness on examination - pleurituc chest pain also improved - monitor #Anemia - Hgb 6.7, 6.0, 9.0, 8.7 (last night) since surgery - 2 packed RBCs transfused yesterday - 200-500ml blood loss during the procedure, no transfusions required #FEN - N/S #DVT PE -CS Visit type - Emergency Visit Emergency Visit: No - New Patient This patient is new to me today: Yes Date on this admission: 09/14/18 - Critical Care Critical Care patient: Yes Total Critical Care Time (in minutes): 1,440 Critical Care Statement: The care of this patient involved high complexity decision making to prevent further life threatening deterioration of the patient 's condition and/or to evaluate & treat vital organ system(s) failure or risk of failure. ATTENDING PHYSICIAN STATEMENT I saw and evaluated the patient. I reviewed the resident's note and discussed the case with the resident. I agree with the resident's findings and plan as documented. SUBJECTIVE: OBJECTIVE: ASSESSMENT AND PLAN:
[2018-09-14] MEDS: SODIUM CHLORIDE 1,000 ML IV SCH ×3 (08:16→19:01)
[2018-09-14] MEDS: ACETAMINOPHEN 1000 MG/100 ML VIAL (NON FORMULARY) IVPB PRN ×2 (09:01→14:46)
--- NOTE | 2018-09-14 09:36 | PN ---
Progress Note (short form) - Note Progress Note: Anesthesia follow up on POD#3 Still in the ICU Hg is better after the blood transfusion.VSS. Pain is still a factor,HR is above 100. C/O abdominal pain on the right side. Not fully satisfied with the conservative management urging DR Guerrero to review the case again. She might consider diagnostic laproscopy today. Tiny Sneed MD.
--- NOTE | 2018-09-14 10:44 | PN ---
Teaching Attending Note Name of Resident: Juan Francisco Patel ATTENDING PHYSICIAN STATEMENT I saw and evaluated the patient. I reviewed the resident's note and discussed the case with the resident. I agree with the resident's findings and plan as documented. SUBJECTIVE: Patient is feeling better , denies feeling short of breath, pain is improving. No fever or chills, OBJECTIVE: Vital Signs Temperature 99 F 09/14/18 08:00 Pulse Rate 102 H 09/14/18 08:00 Respiratory Rate 18 09/14/18 08:00 Blood Pressure 119/75 09/14/18 08:00 O2 Sat by Pulse Oximetry (%) 100 09/14/18 07:38 GENERAL: The patient is awake, alert, and fully oriented, in no acute distress. HEAD: Normal with no signs of trauma. EYES: PERRL, extraocular movements intact, sclera anicteric, conjunctiva clear. ENT: Ears normal, oropharynx clear without exudates, moist mucous membranes. NECK: Trachea midline, full range of motion, supple. LUNGS: Breath sounds equal, clear to auscultation bilaterally, no wheezes, no crackles, no accessory muscle use. HEART: mild tachycardia , S1, S2 positive , no murmur, rub or gallop. ABDOMEN: Soft, nontender, nondistended, normoactive bowel sounds, no guarding, no rebound, no hepatosplenomegaly, no masses. EXTREMITIES: 2+ pulses, warm, well-perfused, no edema. NEUROLOGICAL: Cranial nerves II through XII grossly intact. Normal speech, gait not observed. PSYCH: Normal mood, normal affect. SKIN: Warm, dry, normal turgor, no rashes or lesions noted CBCD WBC 13.1 K/mm3 (4.0-10.0) H 09/14/18 05:10 RBC 2.75 M/mm3 (3.60-5.2) L 09/14/18 05:10 Hgb 8.7 GM/dL (10.7-15.3) L 09/14/18 05:10 Hct 24.8 % (32.4-45.2) L 09/14/18 05:10 MCV 90.3 fl (80-96) 09/14/18 05:10 MCHC 35.1 g/dl (32.0-36.0) 09/14/18 05:10 RDW 15.1 % (11.6-15.6) 09/14/18 05:10 Plt Count 202 K/MM3 (134-434) 09/14/18 05:10 MPV 8.0 fl (7.5-11.1) 09/14/18 05:10 CMP Sodium 140 mmol/L (136-145) 09/14/18 05:10 Potassium 3.8 mmol/L (3.5-5.1) 09/14/18 05:10 Chloride 106 mmol/L (98-107) 09/14/18 05:10 Carbon Dioxide 29 mmol/L (21-32) 09/14/18 05:10 Anion Gap 4 MMOL/L (8-16) L 09/14/18 05:10 BUN 5.2 mg/dL (7-18) L 09/14/18 05:10 Creatinine 0.6 mg/dL (0.55-1.3) 09/14/18 05:10 Random Glucose 82 mg/dL (74-106) 09/14/18 05:10 Calcium 7.4 mg/dL (8.5-10.1) L 09/14/18 05:10 Total Bilirubin 0.7 mg/dL (0.2-1) 09/14/18 05:10 AST 13 U/L (15-37) L 09/14/18 05:10 ALT 15 U/L (13-61) 09/14/18 05:10 Alkaline Phosphatase 33 U/L (45-117) L 09/14/18 05:10 Total Protein 4.8 g/dl (6.4-8.2) L 09/14/18 05:10 Albumin 2.3 g/dl (3.4-5.0) L 09/14/18 05:10 Current Medications Generic Name Dose Route Start Last Admin Trade Name Freq PRN Reason Stop Dose Admin Acetaminophen 650 mg 09/13/18 12:55 Tylenol - PO Q4H PRN PAIN 1-5 Acetaminophen 1,000 mg 09/13/18 12:55 09/14/18 09:01 Ofirmev Injection - IVPB 1,000 mg Q6H PRN Administration FEVER Chlorhexidine Gluconate 1 applic 09/13/18 22:00 09/13/18 22:08 Hibiclens For Decolonization - TP 1 applic HS JUDY Administration Sodium Chloride 1,000 mls @ 200 mls/hr 09/13/18 15:45 09/14/18 08:16 Normal Saline - IV 200 mls/hr ASDIR JUDY Administration Metronidazole 500 mg in 100 mls @ 100 mls/hr 09/14/18 02:00 09/14/18 09:14 Flagyl 500mg Premixed Ivpb - IVPB 100 mls/hr Q8H-IV JUDY Administration Levofloxacin 500 mg in 100 mls @ 100 mls/hr 09/13/18 22:00 09/14/18 10:05 Levaquin 500 Mg Premixed Ivpb - IVPB 100 mls/hr DAILY JUDY Administration Protocol Morphine Sulfate 2 mg 09/13/18 12:55 09/13/18 19:21 Morphine Sulfate IVPUSH 2 mg Q3H PRN Administration PAIN LEVEL 6-10 Mupirocin 1 applic 09/13/18 22:00 09/13/18 22:08 Bactroban Ointment (For Decolonization) - NS 09/18/18 21:59 1 applic BID JUDY Administration Ondansetron HCl 4 mg 09/13/18 12:55 09/13/18 18:50 Zofran Injection IVPUSH 4 mg Q6H PRN Administration NAUSEA AND/OR VOMITING Oxycodone HCl 5 mg 09/13/18 12:55 Roxicodone - PO Q4H PRN PAIN LEVEL 4 - 6 Oxycodone HCl 10 mg 09/13/18 12:55 09/14/18 07:35 Roxicodone - PO 10 mg Q4H PRN Administration PAIN 1-5 Promethazine HCl 12.5 mg 09/13/18 12:55 Phenergan Injection - IVPUSH Q6H PRN NAUSEA-FOR RESCUE AFTER 15 MIN Simethicone 80 mg 09/13/18 14:00 09/14/18 05:24 Mylicon - PO Not Given TID JUDY Sumatriptan Succinate 100 mg 09/13/18 12:55 Imitrex - PO DAILY PRN HEADACHE ASSESSMENT AND PLAN: Patient is a 48 year old female with a one day hx of vaginal hysterectomy c/o having shortness of breath and unable to take deep breaths. #POD #2 Status post vaginal hysterectomy s/p transfusionof 2 units of PrBC. Patient is feeling better, seen by will continue to monitor. CT abdomen and pelvis: In comparison to previous CT on 09/12/18 ; increased the size of pneumoperitoneum. possible due to questionable viscus perforstion / possible small amount of free intraperitoneal air within the right adnexa. No Obvious interval change is seen in regards to free intraperitoneal fluid within the pelvis and abdomen which is at least partially hemorrhagic in nature. # Acute blood Loss: due to bleed , s/p 2 PRBC # Pneumoperitoneum: as above , will continue to monitor # Hemoperitoneum: continue to monitor. DVT Px: TEDS
--- NOTE | 2018-09-14 11:11 | PN ---
Teaching Attending Note Name of Resident: Osiel Kirk ATTENDING PHYSICIAN STATEMENT I saw and evaluated the patient. I reviewed the resident's note and discussed the case with the resident. I agree with the resident's findings and plan as documented. SUBJECTIVE: Patient seen and examined in the ICU. Awake and alert. Abdominal discomfort feels better but still 8/10 with moving. Breathing is improved today. H & H stabilizing. Intake & Output 09/11/18 09/12/18 09/13/18 09/14/18 23:59 23:59 23:59 23:59 Intake Total 5200 5400 1145 Output Total 1700 1800 1200 Balance 3500 3600 -55 Weight 129 lb 152 lb Last Vital Signs Temp Pulse Resp BP Pulse Ox 99 F 102 H 18 119/75 100 09/14/18 08:00 09/14/18 08:00 09/14/18 08:00 09/14/18 08:00 09/14/18 07:38 Active Medications Acetaminophen (Tylenol -) 650 mg PO Q4H PRN PRN Reason: PAIN 1-5 Acetaminophen (Ofirmev Injection -) 1,000 mg IVPB Q6H PRN PRN Reason: FEVER Last Admin: 09/14/18 09:01 Dose: 1,000 mg Chlorhexidine Gluconate (Hibiclens For Decolonization -) 1 applic TP HS JUDY Last Admin: 09/13/18 22:08 Dose: 1 applic Sodium Chloride (Normal Saline -) 1,000 mls @ 200 mls/hr IV ASDIR JUDY Last Admin: 09/14/18 08:16 Dose: 200 mls/hr Metronidazole (Flagyl 500mg Premixed Ivpb -) 500 mg in 100 mls @ 100 mls/hr IVPB Q8H-IV JUDY Last Admin: 09/14/18 09:14 Dose: 100 mls/hr Levofloxacin (Levaquin 500 Mg Premixed Ivpb -) 500 mg in 100 mls @ 100 mls/hr IVPB DAILY JUDY; Protocol Last Admin: 09/14/18 10:05 Dose: 100 mls/hr Morphine Sulfate (Morphine Sulfate) 2 mg IVPUSH Q3H PRN PRN Reason: PAIN LEVEL 6-10 Last Admin: 09/13/18 19:21 Dose: 2 mg Mupirocin (Bactroban Ointment (For Decolonization) -) 1 applic NS BID JUDY Stop: 09/18/18 21:59 Last Admin: 09/13/18 22:08 Dose: 1 applic Ondansetron HCl (Zofran Injection) 4 mg IVPUSH Q6H PRN PRN Reason: NAUSEA AND/OR VOMITING Last Admin: 09/13/18 18:50 Dose: 4 mg Oxycodone HCl (Roxicodone -) 5 mg PO Q4H PRN PRN Reason: PAIN LEVEL 4 - 6 Oxycodone HCl (Roxicodone -) 10 mg PO Q4H PRN PRN Reason: PAIN 1-5 Last Admin: 09/14/18 07:35 Dose: 10 mg Promethazine HCl (Phenergan Injection -) 12.5 mg IVPUSH Q6H PRN PRN Reason: NAUSEA-FOR RESCUE AFTER 15 MIN Simethicone (Mylicon -) 80 mg PO TID [facility] Last Admin: 09/14/18 05:24 Dose: Not Given Sumatriptan Succinate (Imitrex -) 100 mg PO DAILY PRN PRN Reason: HEADACHE Gen: Awake and alert, Mildly uncomfortable due to pain Heart: S1S2, regular Lung: decreased breath sounds at the bases with a few scattered rhonchi Abd: softly distended, diffuse tenderness to palpation, no guarding or rigidity Ext: no edema Laboratory Results - last 24 hr 09/12/18 09/13/18 09/13/18 06:14 10:20 12:36 WBC 12.0 H RBC 1.92 L Hgb 6.0 L* Hct 18.0 L MCV 94.1 MCH 31.5 MCHC 33.5 RDW 13.0 Plt Count 219 MPV 7.3 L D PT with INR INR PTT (Actin FS) Sodium 141 Potassium 3.9 Chloride 106 Carbon Dioxide 32 Anion Gap 3 L BUN 7.4 Creatinine 0.7 Est GFR (CKD-EPI)AfAm 120.43 Est GFR (CKD-EPI)NonAf 103.90 Random Glucose 115 H Calcium 7.8 L Total Bilirubin 0.4 AST 16 ALT 20 Alkaline Phosphatase 31 L Total Protein 5.0 L Albumin 2.6 L Blood Type B POSITIVE Antibody Screen Negative Crossmatch See Detail 09/13/18 09/13/18 09/14/18 12:36 20:35 05:10 WBC 14.3 H 13.1 H RBC 2.90 L 2.75 L Hgb 9.0 L 8.7 L Hct 26.3 L D 24.8 L MCV 90.7 90.3 MCH 31.1 31.7 MCHC 34.3 35.1 RDW 15.1 D 15.1 Plt Count 201 202 MPV 7.9 8.0 PT with INR 14.60 H INR 1.23 H PTT (Actin FS) 24.8 L Sodium Potassium Chloride Carbon Dioxide Anion Gap BUN Creatinine Est GFR (CKD-EPI)AfAm Est GFR (CKD-EPI)NonAf Random Glucose Calcium Total Bilirubin AST ALT Alkaline Phosphatase Total Protein Albumin Blood Type Antibody Screen Crossmatch 09/14/ 05:10 WBC RBC Hgb Hct MCV MCH MCHC RDW Plt Count MPV PT with INR INR PTT (Actin FS) Sodium 140 Potassium 3.8 Chloride 106 Carbon Dioxide 29 Anion Gap 4 L BUN 5.2 L Creatinine 0.6 Est GFR (CKD-EPI)AfAm 126.69 Est GFR (CKD-EPI)NonAf 109.31 Random Glucose 82 Calcium 7.4 L Total Bilirubin 0.7 AST 13 L ALT 15 Alkaline Phosphatase 33 L Total Protein 4.8 L Albumin 2.3 L Blood Type Antibody Screen Crossmatch ASSESSMENT AND PLAN: POD #2: Transvaginal Hysterectomy with surgical bleed Uterine Leiomyomas Acute Blood Loss Anemia - Normal transfusion thresholds - Pain control - Monitor H/H - MANAGER OF PHARMACY f/u - IVF - PO as tolerated - Mechanical VTE prophylaxis - Encourage Incentive Spirometry - OOB to chair - Floor Dr Reno
--- NOTE | 2018-09-14 13:21 | PN ---
Physical Exam: SUBJECTIVE: Patient seen and examined. No acute events over night. Pt. denies passing gas or stool. Pt. states that her breathing and her abdominal pain has gotten better, however movement and breathing still exacerbate her pain. Pt. states that the location of her pain has changed. The superior aspect of her abdomen is no longer the most tender part but rather the entire right side of her abdomen. OBJECTIVE: Vital Signs Period Temp Pulse Resp BP Sys/Jeffery Pulse Ox Last 24 Hr 98.4 F-100.4 F 92-120 14-28 119-142/65-88 96-100 GENERAL: The patient is awake, drowsy (pain meds), able to answer questions appropriately HEAD: Normal with no signs of trauma. EYES: PERRL NECK: Trachea midline, full range of motion, supple. LUNGS: decreased breath sounds B/L HEART: Regular rate and rhythm, S1, S2 without murmur, rub or gallop. ABDOMEN: Soft, diffuse tenderness, more in RLQ and LLQ, non distended EXTREMITIES: 2+ pulses, warm, well-perfused NEUROLOGICAL: Normal speech, gait not observed PSYCH: Normal mood, normal affect. Laboratory Results - last 24 hr 09/12/18 09/13/18 09/14/18 06:14 20:35 05:10 WBC 14.3 H 13.1 H RBC 2.90 L 2.75 L Hgb 9.0 L 8.7 L Hct 26.3 L D 24.8 L MCV 90.7 90.3 MCH 31.1 31.7 MCHC 34.3 35.1 RDW 15.1 D 15.1 Plt Count 201 202 MPV 7.9 8.0 Sodium Potassium Chloride Carbon Dioxide Anion Gap BUN Creatinine Est GFR (CKD-EPI)AfAm Est GFR (CKD-EPI)NonAf Random Glucose Calcium Total Bilirubin AST ALT Alkaline Phosphatase Total Protein Albumin Blood Type B POSITIVE Antibody Screen Negative Crossmatch See Detail 09/14/18 05:10 WBC RBC Hgb Hct MCV MCH MCHC RDW Plt Count MPV Sodium 140 Potassium 3.8 Chloride 106 Carbon Dioxide 29 Anion Gap 4 L BUN 5.2 L Creatinine 0.6 Est GFR (CKD-EPI)AfAm 126.69 Est GFR (CKD-EPI)NonAf 109.31 Random Glucose 82 Calcium 7.4 L Total Bilirubin 0.7 AST 13 L ALT 15 Alkaline Phosphatase 33 L Total Protein 4.8 L Albumin 2.3 L Blood Type Antibody Screen Crossmatch Active Medications Current Medications Acetaminophen (Tylenol -) 650 mg PO Q4H PRN PRN Reason: PAIN 1-5 Acetaminophen (Ofirmev Injection -) 1,000 mg IVPB Q6H PRN PRN Reason: FEVER Last Admin: 09/14/18 09:01 Dose: 1,000 mg Chlorhexidine Gluconate (Hibiclens For Decolonization -) 1 applic TP HS [facility] Last Admin: 09/13/18 22:08 Dose: 1 applic Sodium Chloride (Normal Saline -) 1,000 mls @ 200 mls/hr IV ASDIR JUDY Last Admin: 09/14/18 08:16 Dose: 200 mls/hr Metronidazole (Flagyl 500mg Premixed Ivpb -) 500 mg in 100 mls @ 100 mls/hr IVPB Q8H-IV JUDY Last Admin: 09/14/18 09:14 Dose: 100 mls/hr Levofloxacin (Levaquin 500 Mg Premixed Ivpb -) 500 mg in 100 mls @ 100 mls/hr IVPB DAILY [facility]; Protocol Last Admin: 09/14/18 10:05 Dose: 100 mls/hr Morphine Sulfate (Morphine Sulfate) 2 mg IVPUSH Q3H PRN PRN Reason: PAIN LEVEL 6-10 Last Admin: 09/13/18 19:21 Dose: 2 mg Mupirocin (Bactroban Ointment (For Decolonization) -) 1 applic NS BID [facility] Stop: 09/18/18 21:59 Last Admin: 09/13/18 22:08 Dose: 1 applic Ondansetron HCl (Zofran Injection) 4 mg IVPUSH Q6H PRN PRN Reason: NAUSEA AND/OR VOMITING Last Admin: 09/13/18 18:50 Dose: 4 mg Oxycodone HCl (Roxicodone -) 5 mg PO Q4H PRN PRN Reason: PAIN LEVEL 4 - 6 Oxycodone HCl (Roxicodone -) 10 mg PO Q4H PRN PRN Reason: PAIN 1-5 Last Admin: 09/14/18 12:51 Dose: 10 mg Promethazine HCl (Phenergan Injection -) 12.5 mg IVPUSH Q6H PRN PRN Reason: NAUSEA-FOR RESCUE AFTER 15 MIN Simethicone (Mylicon -) 80 mg PO TID JUDY Last Admin: 09/14/18 05:24 Dose: Not Given Sumatriptan Succinate (Imitrex -) 100 mg PO DAILY PRN PRN Reason: HEADACHE ASSESSMENT/PLAN: Pt. is a 48 y.o. F w/ PMHx. of Endometriosis, uterine fibroids, and Migraines presents to ICU on POD#1 from transvaginal hysterectomy. #Gynecology/Cardiology POD# 2 s/p Transvaginal Hysterectomy Pt. had estimated 200-500cc blood loss Aggressive IVF Hgb: 6.7-->6.0-->2 units pRBCs--> 9.0-->8.7 s/p [address] Scan w/o contrast shows hemoperitoneum, pneumoperitonemum and small bilateral pleural effusions. c/w D5-LR- wide open c/w Morphine, Oxycodone (/10), PO Tylenol for pain Ofirmev for fever Dr. Guerrero contacted for urgent re-evaluation for surgical intervention Dr. Joseph consulted for possible general surgical intervention CXR: shows pneumoperitoneum which is expected s/p abdominal surgery c/w Lerma to monitor UOP and evlauate for adequate volume resuscitation. #Gastroenterology c/w Zofran and Phenergan for Nausea c/w Simethicone for gas and bloating Pt. is s/p cholecystectomy in February 2018 #Rheumatology c/w Sumatriptan 100mg PRN #FEN Aggressive IVF Hydration-- c/w D5-LR @ 125ml/hr monitor electrolytes and replete as needed NPO for possible surgical intervention later today #Dispo: Pt. can be monitored on M/S starting tomorrow (09/15/18). Visit type - Emergency Visit Emergency Visit: Yes ED Registration Date: 09/12/18 Care time: The patient presented to the Emergency Department on the above date and was hospitalized for further evaluation of their emergent condition. - New Patient This patient is new to me today: No - Critical Care Critical Care patient: Yes Total Critical Care Time (in minutes): 55 Critical Care Statement: The care of this patient involved high complexity decision making to prevent further life threatening deterioration of the patient 's condition and/or to evaluate & treat vital organ system(s) failure or risk of failure. - Discharge Referral Referred to [facility] No ATTENDING PHYSICIAN STATEMENT I saw and evaluated the patient. I reviewed the resident's note and discussed the case with the resident. I agree with the resident's findings and plan as documented. SUBJECTIVE: OBJECTIVE: ASSESSMENT AND PLAN:
[2018-09-14] MEDS: MUPIROCIN 2% TOPICAL OINTMENT FOR DECOLONIZATION NS SCH ×2 (14:07→21:17)
--- NOTE | 2018-09-14 15:31 | PATH ---
Surgical Pathology Report Patient Name: FOREIGN ROSALES [facility]. Rec. #: [id number] /Age/Gender: 1970 (Age: 48) / F Account: [id number] [facility]: 09/12/2018 Received: 09/12/2018 Reported: 09/14/2018 Physicians: Shani Guerrero M.D. Specimen(s) Received UTERUS AND CERVIX Clinical History Pelvic pain Final Diagnosis UTERUS AND CERVIX, TOTAL VAGINAL HYSTERECTOMY: 230 G UTERUS. LEIOMYOMA(TA), INTRAMURAL, FOCALLY HYALINIZED AND CALCIFIED. PROLIFERATIVE ENDOMETRIUM. CERVIX WITHOUT SIGNIFICANT PATHOLOGIC FINDINGS. Electronically Signed Maren Vela M.D. Gross Description Received in formalin labeled "uterus and cervix," is a 230 g uterus with an attached cervix and no attached adnexa. The specimen measures 11.8 cm from superior to inferior, 7.6 cm from left to right and 6.0 cm from anterior to posterior. The serosa is gee-wooten with focal defects. The attached cervix measures 3.5 cm in length and 3 cm in diameter. The ectocervix is gee, smooth and glistening. The endocervix is unremarkable. The endometrial cavity measures 4.5 cm in length and 2.5 cm from cornu to cornu. The endometrium is gee-red and lush, measuring up to 0.4 cm in thickness. The myometrium displays multiple intramural nodules, measuring up to 3.2 cm in greatest dimension. The cut surface of the largest nodule displays focal degeneration. The cut surface of the remaining nodules is gee and rubbery with whorled architecture. No areas of hemorrhage or necrosis are identified. [employer] Arc sections are submitted in 8 cassettes as follows: 1-2-cervix; 1-5-[id number]; 7-largest intramural nodule; 8-additional intramural nodules. 09/13/201809/13/2018
--- NOTE | 2018-09-14 16:04 | PN ---
Progress Note (short form) - Note Progress Note: Patient seen and evaluated. Status post vaginal hysterectomy. She's OOB to chair. She has shown some improvement compared to yesterday but still c/o of moderate discomfort upon breathing. PE : Chest : Decreased breathing sounds ABD : Mild pain to palpation Pelvis : Vagina : no bleeding, no leakage of fluid. Lerma catheter in place A/P : Status post vaginal hysterectomy Chest pain Abdominal pain Anemia Status post blood transfusion Continue analgesia IV Famotidine Continue management as per ICU Problem List - Problems (1) Pelvic pain Code(s): R10.2 - PELVIC AND PERINEAL PAIN
[2018-09-14] MEDS ORDERED: SODIUM CHLORIDE 1,000 ML IV STA (16:06)
[2018-09-14] MEDS: FAMOTIDINE 20 MG/50 ML IVPB 20 MG/50 ML MG IVPB SCH (21:17)
[2018-09-14] MEDS: CHLORHEXIDINE GLUCONATE 4% CLEANSER FOR DECOLONIZATION TP SCH (21:17)
[2018-09-15] MEDS: SIMETHICONE 80 MG TAB.CHEW (FP) PO SCH ×3 (05:09→21:31)
--- NOTE | 2018-09-15 06:32 | PN ---
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 Called postop in consultation POD# s/p total vaginal hysterectomy. She had a ct scan showing hemo and pneumoperitonuim. She has been tachycardic mosto of the night. She has made inadequate urine. H&H dropped for 6 grams from a prepop 9 grams. She has cmoplaints of abdominal pain and diaphragmnatic irritation. tachycardia improving - Current Medication List Current Medications: Active Medications Acetaminophen (Tylenol -) 650 mg PO Q4H PRN PRN Reason: PAIN 1-5 Chlorhexidine Gluconate (Hibiclens For Decolonization -) 1 applic TP HS [facility] Last Admin: 09/14/18 21:17 Dose: 1 applic Sodium Chloride (Normal Saline -) 1,000 mls @ 200 mls/hr IV ASDIR [facility] Last Admin: 09/14/18 19:01 Dose: 200 mls/hr Metronidazole (Flagyl 500mg Premixed Ivpb -) 500 mg in 100 mls @ 100 mls/hr IVPB Q8H-IV [facility] Last Admin: 09/15/18 01:06 Dose: 100 mls/hr Levofloxacin (Levaquin 500 Mg Premixed Ivpb -) 500 mg in 100 mls @ 100 mls/hr IVPB DAILY [facility]; Protocol Last Admin: 09/14/18 10:05 Dose: 100 mls/hr Famotidine/Sodium Chloride (Pepcid 20 Mg Premixed Ivpb -) 20 mg in 50 mls @ 100 mls/hr IVPB BID [facility] Last Admin: 09/14/18 21:17 Dose: 100 mls/hr Morphine Sulfate (Morphine Sulfate) 2 mg IVPUSH Q3H PRN PRN Reason: PAIN LEVEL 6-10 Last Admin: 09/13/18 19:21 Dose: 2 mg Mupirocin (Bactroban Ointment (For Decolonization) -) 1 applic NS BID [facility] Stop: 09/18/18 21:59 Last Admin: 09/14/18 21:17 Dose: 1 applic Ondansetron HCl (Zofran Injection) 4 mg IVPUSH Q6H PRN PRN Reason: NAUSEA AND/OR VOMITING Last Admin: 09/13/18 18:50 Dose: 4 mg Oxycodone HCl (Roxicodone -) 5 mg PO Q4H PRN PRN Reason: PAIN LEVEL 4 - 6 Last Admin: 09/14/18 19:40 Dose: 5 mg Oxycodone HCl (Roxicodone -) 10 mg PO Q4H PRN PRN Reason: PAIN 1-5 Last Admin: 09/14/18 21:57 Dose: 10 mg Promethazine HCl (Phenergan Injection -) 12.5 mg IVPUSH Q6H PRN PRN Reason: NAUSEA-FOR RESCUE AFTER 15 MIN Simethicone (Mylicon -) 80 mg PO TID [facility] Last Admin: 09/15/18 05:09 Dose: 80 mg Sumatriptan Succinate (Imitrex -) 100 mg PO DAILY PRN PRN Reason: HEADACHE - Objective Vital Signs: Vital Signs Temperature 98.2 F 09/15/18 02:00 Pulse Rate 104 H 09/15/18 04:00 Respiratory Rate 17 09/15/18 04:00 Blood Pressure 144/88 09/15/18 04:00 O2 Sat by Pulse Oximetry (%) 100 09/14/18 21:00 Vital Signs Period Temp Pulse Resp BP Sys/Jeffery Pulse Ox Last 24 Hr 98.2 F-99 F 92-112 14-24 116-144/68-88 100-100 Intake & Output 09/14/18 09/14/18 09/15/18 15:59 23:59 07:59 Intake Total 3100 2010 Output Total 1900 1000 650 Balance 1200 -1000 1361 Weight 152 lb 159 lb 9.6 oz Intake: IV 2800 2010 Normal Saline - 1,000 ml 1000 @ 1000 mls/hr IV ASDIR [facility] Rx#:[id number] Normal Saline - 1,000 ml 1800 2011 @ 200 mls/hr IV ASDIR [facility] Rx#:[id number] IVPB 300 Output: Urine 1900 1000 650 Lerma 1900 1000 650 Other: Voiding Method Indwelling Catheter Bowel Movement No No Height 5 ft 6 in Body Mass Index (BMI) 24.5 Weight Measurement Method Built in [facility] Constitutional: Yes: Well Nourished, No Distress, Calm Eyes: Yes: Conjunctiva Clear, EOM Intact HENT: Yes: Atraumatic, Normocephalic Neck: Yes: Supple, Trachea Midline Cardiovascular: Yes: Regular Rate and Rhythm, S1, S2 Respiratory: Yes: Regular, CTA Bilaterally Gastrointestinal: Yes: Normal Bowel Sounds, Soft, Tenderness, Epigastrium ( improve), Other (abdominal binder in place). No: Tenderness (improved), Tenderness, Rebound ...Rectal Exam: Yes: Deferred Genitourinary: No: CVA Tenderness - Left, CVA Tenderness - Right Breast(s): No: Mass, Skin Changes Musculoskeletal: No: Muscle Pain, Muscle Weakness Extremities: No: Cool, Cyanosis Edema: No Peripheral Pulses WNL: Yes Peripheral Pulses: Left Radial: 2+, Right Radial: 2+, Left Doralis Pedis: 2+, Right Dorsalis Pedis: 2+, Left Femoral: 2+, Right Femoral: 2+ Neurological: Yes: Alert, Oriented Psychiatric: Yes: Alert, Oriented Labs: CBC, BMP 09/14/18 05:10 INR, PTT INR 1.23 (0.83-1.09) H 09/13/18 12:36 Problem List - Problems (1) Hemoperitoneum Assessment/Plan: 48yo female with less then 24hrs post of from vaginal hysterectomy pneumoperitoniem and even a small amount of hemoperitoneium is not concerning post operative day one. POD#3 s/p total vaginal hysterectomy patient abdominal pain is improved compared to the previous day . ICU care Clear Liquid diet Repeat CXR - eval pnuemoperitoneum for increasing volume given, persistent abdominal pain and referred shoulder pain IVF hydration trend CBC ID for antibiotics No acute intervention from general surgery will follow Code(s): K66.1 - HEMOPERITONEUM (2) Pneumoperitoneum Code(s): K66.8 - OTHER SPECIFIED DISORDERS OF PERITONEUM (3) Abdominal pain in female patient Code(s): R10.9 - UNSPECIFIED ABDOMINAL PAIN (4) H/O total vaginal hysterectomy Code(s): Z90.710 - ACQUIRED ABSENCE OF BOTH CERVIX AND UTERUS
[2018-09-15 06:50] LABS: BASO % 0.3 % (0-2.0); EOS % 0.4 % (0-4.5); HEMATOCRIT 27.7 % (32.4-45.2); HEMOGLOBIN 9.4 GM/dL (10.7-15.3); LYMPH % 8.2 % (8-40); MCH 31.7 pg (25.7-33.7); MCHC 33.8 g/dl (32.0-36.0); MEAN CELL VOLUME 93.6 fl (80-96); MEAN PLT VOLUME 8.2 fl (7.5-11.1); MONO % 4.3 % (3.8-10.2); NEUT % 86.8 % (42.8-82.8); PLATELET COUNT 221 K/MM3 (134-434); RBC 2.96 M/mm3 (3.60-5.2); RDW 14.6 % (11.6-15.6)
--- NOTE | 2018-09-15 07:08 | PN ---
Physical Exam: SUBJECTIVE: Patient seen and examined by the bedside. Pt. is a 48 y.o. F w/ PMHx. of Endometriosis, uterine fibroids, and Migraines presents to ICU on POD#1 from transvaginal hysterectomy. Post op RUQ pain radiating to upper abdomen Decreased appetite & 21lb weight loss since January. OBJECTIVE: Vital Signs Period Temp Pulse Resp BP Sys/Jeffery Pulse Ox Last 24 Hr 98.2 F-99 F 92-112 14-24 116-144/68-88 100-100 GENERAL: The patient is awake, drowsy (pain meds), able to answer questions appropriately HEAD: Normal with no signs of trauma. EYES: PERRL NECK: Trachea midline, full range of motion, supple. LUNGS: decreased breath sounds B/L HEART: Regular rate and rhythm, S1, S2 without murmur, rub or gallop. ABDOMEN: Band impeded complete abdominal exam, diffuse tenderness particularly prominent in RLQ NEUROLOGICAL: Normal speech, gait not observed PSYCH: Normal mood, normal affect. Laboratory Results - last 24 hr 09/15/18 05:15 WBC 14.0 H RBC 2.96 L Hgb 9.4 L Hct 27.7 L MCV 93.6 MCH 31.7 MCHC 33.8 RDW 14.6 Plt Count 221 MPV 8.2 Absolute Neuts (auto) 12.2 H Neutrophils % 86.8 H Lymphocytes % 8.2 D Monocytes % 4.3 Eosinophils % 0.4 D Basophils % 0.3 Nucleated RBC % 0 Active Medications Generic Name Dose Route Start Last Admin Trade Name Freq PRN Reason Stop Dose Admin Acetaminophen 650 mg 09/13/18 12:55 Tylenol - PO Q4H PRN PAIN 1-5 Chlorhexidine Gluconate 1 applic 09/13/18 22:00 09/14/18 21:17 Hibiclens For Decolonization - TP 1 applic HS [facility] Administration Sodium Chloride 1,000 mls @ 200 mls/hr 09/13/18 15:45 09/14/18 19:01 Normal Saline - IV 200 mls/hr ASDIR [facility] Administration Metronidazole 500 mg in 100 mls @ 100 mls/hr 09/14/18 02:00 09/15/18 01:06 Flagyl 500mg Premixed Ivpb - IVPB 100 mls/hr Q8H-IV [facility] Administration Levofloxacin 500 mg in 100 mls @ 100 mls/hr 09/13/18 22:00 09/14/18 10:05 Levaquin 500 Mg Premixed Ivpb - IVPB 100 mls/hr DAILY [facility] Administration Protocol Famotidine/Sodium Chloride 20 mg in 50 mls @ 100 mls/hr 09/14/18 22:00 21:17 Pepcid 20 Mg Premixed Ivpb - IVPB 100 mls/hr BID [facility] Administration Morphine Sulfate 2 mg 09/13/18 12:55 09/13/18 19:21 Morphine Sulfate IVPUSH 2 mg Q3H PRN Administration PAIN LEVEL 6-10 Mupirocin 1 applic 09/13/18 22:00 09/14/18 21:17 Bactroban Ointment (For Decolonization) - NS 09/18/18 21:59 1 applic BID [facility] Administration Ondansetron HCl 4 mg 09/13/18 12:55 09/13/18 18:50 Zofran Injection IVPUSH 4 mg Q6H PRN Administration NAUSEA AND/OR VOMITING Oxycodone HCl 5 mg 09/13/18 12:55 09/14/18 19:40 Roxicodone - PO 5 mg Q4H PRN Administration PAIN LEVEL 4 - 6 Oxycodone HCl 10 mg 09/13/18 12:55 09/14/18 21:57 Roxicodone - PO 10 mg Q4H PRN Administration PAIN 1-5 Promethazine HCl 12.5 mg 09/13/18 12:55 Phenergan Injection - IVPUSH Q6H PRN NAUSEA-FOR RESCUE AFTER 15 MIN Simethicone 80 mg 09/13/18 14:00 09/15/18 05:09 Mylicon - PO 80 mg TID [facility] Administration Sumatriptan Succinate 100 mg 09/13/18 12:55 Imitrex - PO DAILY PRN HEADACHE Current Medications Acetaminophen (Tylenol -) 650 mg PO Q4H PRN PRN Reason: PAIN 1-5 Chlorhexidine Gluconate (Hibiclens For Decolonization -) 1 applic TP HS [facility] Last Admin: 09/14/18 21:17 Dose: 1 applic Sodium Chloride (Normal Saline -) 1,000 mls @ 200 mls/hr IV ASDIR [facility] Last Admin: 07/18/19 19:01 Dose: 200 mls/hr Metronidazole (Flagyl 500mg Premixed Ivpb -) 500 mg in 100 mls @ 100 mls/hr IVPB Q8H-IV [facility] Last Admin: 09/15/18 01:06 Dose: 100 mls/hr Levofloxacin (Levaquin 500 Mg Premixed Ivpb -) 500 mg in 100 mls @ 100 mls/hr IVPB DAILY [facility]; Protocol Last Admin: 09/14/18 10:05 Dose: 100 mls/hr Famotidine/Sodium Chloride (Pepcid 20 Mg Premixed Ivpb -) 20 mg in 50 mls @ 100 mls/hr IVPB BID [facility] Last Admin: 09/14/18 21:17 Dose: 100 mls/hr Morphine Sulfate (Morphine Sulfate) 2 mg IVPUSH Q3H PRN PRN Reason: PAIN LEVEL 6-10 Last Admin: 09/13/18 19:21 Dose: 2 mg Mupirocin (Bactroban Ointment (For Decolonization) -) 1 applic NS BID [facility] Stop: 09/18/18 21:59 Last Admin: 09/14/18 21:17 Dose: 1 applic Ondansetron HCl (Zofran Injection) 4 mg IVPUSH Q6H PRN PRN Reason: NAUSEA AND/OR VOMITING Last Admin: 09/13/18 18:50 Dose: 4 mg Oxycodone HCl (Roxicodone -) 5 mg PO Q4H PRN PRN Reason: PAIN LEVEL 4 - 6 Last Admin: 09/14/18 19:40 Dose: 5 mg Oxycodone HCl (Roxicodone -) 10 mg PO Q4H PRN PRN Reason: PAIN 1-5 Last Admin: 09/14/18 21:57 Dose: 10 mg Promethazine HCl (Phenergan Injection -) 12.5 mg IVPUSH Q6H PRN PRN Reason: NAUSEA-FOR RESCUE AFTER 15 MIN Simethicone (Mylicon -) 80 mg PO TID [facility] Last Admin: 09/15/18 05:09 Dose: 80 mg Sumatriptan Succinate (Imitrex -) 100 mg PO DAILY PRN PRN Reason: HEADACHE ASSESSMENT/PLAN: Pt. is a 48 y.o. F w/ PMHx. of Endometriosis, uterine fibroids, and Migraines presents to ICU on POD#1 from transvaginal hysterectomy. Post op RUQ pain radiating to upper abdomen Decreased appetite & 21lb weight loss since January. #Pleuritic and abdominal Pain - Pneumoperitoneum, hemoperitoneum - Decreased pain, incentive spirometry 750 - Will transfer to Med/Surg - CT chest abdomen 09/13: increased size of pneumoperitoneum due to possible viscus perforation, free air in Rt adenexa; no interval change in intraperitoneal fluid in pelvis, no evidence of discrete bleeding site. B/L pleural effusions, increased bibasilar compressive atelectasis; no evidence of PE, 3mm Rt pulm nodule - Surgery consult (09/15): no surgical intervention #Anemia - Hgb (trend: 6.7, 6.0, 9.0, 8.7) 9.4 this morning - 2 packed RBCs transfused 09/13 - 200-500ml blood loss during the procedure, no transfusions required #FEN - N/S #DVT PE -CS Visit type - Emergency Visit Emergency Visit: Yes ED Registration Date: 09/12/18 Care time: The patient presented to the Emergency Department on the above date and was hospitalized for further evaluation of their emergent condition. - New Patient This patient is new to me today: No - Critical Care Critical Care patient: Yes Total Critical Care Time (in minutes): 2,800 Critical Care Statement: The care of this patient involved high complexity decision making to prevent further life threatening deterioration of the patient 's condition and/or to evaluate & treat vital organ system(s) failure or risk of failure. ATTENDING PHYSICIAN STATEMENT I saw and evaluated the patient. I reviewed the resident's note and discussed the case with the resident. I agree with the resident's findings and plan as documented. SUBJECTIVE: OBJECTIVE: ASSESSMENT AND PLAN:
[2018-09-15] MEDS: PROMETHAZINE HCL 25 MG/1 ML VIAL IVPUSH PRN (07:50)
[2018-09-15] MEDS: MORPHINE SULFATE 2 MG/ML VIAL IVPUSH PRN (07:52)
[2018-09-15 08:52] LABS: BLOOD UREA NITROGEN 6.4 mg/dL (7-18); CALCIUM 7.6 mg/dL (8.5-10.1); CREATININE 0.6 mg/dL (0.55-1.3); MAGNESIUM 2.1 mg/dL (1.8-2.4); PHOSPHOROUS 2.6 mg/dL (2.5-4.9); POTASSIUM 3.6 mmol/L (3.5-5.1)
[2018-09-15] MEDS ORDERED: NAPH,MB-DB/K PH,MBDB POWDER PACKET PO ONE (08:55)
[2018-09-15] MEDS: oxyCODONE HCL 5 MG TABLET PO PRN ×4 (09:56→18:45)
[2018-09-15] MEDS: FAMOTIDINE 20 MG/50 ML IVPB 20 MG/50 ML MG IVPB SCH ×2 (10:02→21:30)
[2018-09-15] MEDS: MUPIROCIN 2% TOPICAL OINTMENT FOR DECOLONIZATION NS SCH ×2 (10:03→21:31)
--- NOTE | 2018-09-15 11:13 | PN ---
Teaching Attending Note Name of Resident: Dave Reyes ATTENDING PHYSICIAN STATEMENT I saw and evaluated the patient. I reviewed the resident's note and discussed the case with the resident. I agree with the resident's findings and plan as documented. SUBJECTIVE: Patient seen and examined in the ICU. Awake and alert. Abdominal discomfort feels only slightly better. Seemed to have exacerbated when she was moved for her CXR. Breathing feels a little better today. H & H stable. CXR: (upright): Pneumoperitoneum increased Intake & Output 09/12/18 09/13/18 09/14/18 09/15/18 23:59 23:59 23:59 23:59 Intake Total 5200 5400 4245 2291 Output Total 1700 1800 4100 650 Balance 3500 3600 145 1641 Weight 129 lb 152 lb 159 lb 9.6 oz Last Vital Signs Temp Pulse Resp BP Pulse Ox 98.2 F 107 H 18 132/80 100 09/15/18 02:00 09/15/18 06:00 09/15/18 06:00 09/15/18 06:00 09/15/18 07:52 Active Medications Acetaminophen (Tylenol -) 650 mg PO Q4H PRN PRN Reason: PAIN 1-5 Last Admin: 09/15/18 10:33 Dose: 650 mg Chlorhexidine Gluconate (Hibiclens For Decolonization -) 1 applic TP HS [facility] Last Admin: 09/14/18 21:17 Dose: 1 applic Sodium Chloride (Normal Saline -) 1,000 mls @ 200 mls/hr IV ASDIR [facility] Last Admin: 09/14/18 19:01 Dose: 200 mls/hr Metronidazole (Flagyl 500mg Premixed Ivpb -) 500 mg in 100 mls @ 100 mls/hr IVPB Q8H-IV [facility] Last Admin: 09/15/18 10:02 Dose: 100 mls/hr Levofloxacin (Levaquin 500 Mg Premixed Ivpb -) 500 mg in 100 mls @ 100 mls/hr IVPB DAILY [facility]; Protocol Last Admin: 09/15/18 10:02 Dose: 100 mls/hr Famotidine/Sodium Chloride (Pepcid 20 Mg Premixed Ivpb -) 20 mg in 50 mls @ 100 mls/hr IVPB BID [facility] Last Admin: 09/15/18 10:02 Dose: 100 mls/hr Morphine Sulfate (Morphine Sulfate) 2 mg IVPUSH Q3H PRN PRN Reason: PAIN LEVEL 6-10 Last Admin: 09/15/18 07:52 Dose: 2 mg Mupirocin (Bactroban Ointment (For Decolonization) -) 1 applic NS BID [facility] Stop: 09/18/18 21:59 Last Admin: 09/15/18 10:03 Dose: 1 applic Ondansetron HCl (Zofran Injection) 4 mg IVPUSH Q6H PRN PRN Reason: NAUSEA AND/OR VOMITING Last Admin: 09/13/18 18:50 Dose: 4 mg Oxycodone HCl (Roxicodone -) 5 mg PO Q4H PRN PRN Reason: PAIN LEVEL 4 - 6 Last Admin: 09/15/18 09:56 Dose: 5 mg Oxycodone HCl (Roxicodone -) 10 mg PO Q4H PRN PRN Reason: PAIN 1-5 Last Admin: 09/14/18 21:57 Dose: 10 mg Promethazine HCl (Phenergan Injection -) 12.5 mg IVPUSH Q6H PRN PRN Reason: NAUSEA-FOR RESCUE AFTER 15 MIN Last Admin: 09/15/18 07:50 Dose: 12.5 mg Simethicone (Mylicon -) 80 mg PO TID [facility] Last Admin: 09/15/18 05:09 Dose: 80 mg Sumatriptan Succinate (Imitrex -) 100 mg PO DAILY PRN PRN Reason: HEADACHE Gen: Awake and alert, uncomfortable due to pain Heart: S1S2, regular Lung: decreased breath sounds at the bases with a few scattered rhonchi Abd: softly distended, diffuse tenderness to palpation, no guarding or rigidity Ext: no edema Laboratory Results - last 24 hr 09/15/18 09/15/18 05:15 08:00 WBC 14.0 H RBC 2.96 L Hgb 9.4 L Hct 27.7 L MCV 93.6 MCH 31.7 MCHC 33.8 RDW 14.6 Plt Count 221 MPV 8.2 Absolute Neuts (auto) 12.2 H Neutrophils % 86.8 H Lymphocytes % 8.2 D Monocytes % 4.3 Eosinophils % 0.4 D Basophils % 0.3 Nucleated RBC % 0 Sodium 139 Potassium 3.6 Chloride 104 Carbon Dioxide 25 Anion Gap 10 BUN 6.4 L Creatinine 0.6 Est GFR (CKD-EPI)AfAm 126.69 Est GFR (CKD-EPI)NonAf 109.31 Random Glucose 68 L Calcium 7.6 L Phosphorus 2.6 Magnesium 2.1 ASSESSMENT AND PLAN: POD #3: Transvaginal Hysterectomy with surgical bleed Uterine Leiomyomas Acute Blood Loss Anemia - Follow abdominal exam - Normal transfusion thresholds - Pain control - Monitor H/H - [place] f/u - IVF - PO as tolerated - Mechanical VTE prophylaxis - Encourage Incentive Spirometry - OOB to chair Dr Reno
[2018-09-15] MEDS ORDERED: HYDROmorphone HCl 2 MG/ML VIAL IVPB PRN (13:33)
[2018-09-15] MEDS: SODIUM CHLORIDE 1,000 ML IV SCH ×2 (13:47→16:13)
--- NOTE | 2018-09-15 14:41 | PN ---
Physical Exam: SUBJECTIVE: Overnight, had fever and given tylenol. Patient seen and examined at the bedside. States that she continues to have abdominal pain that is worse when she moves. Has passed flatus but no bowel movement. States that her respiratory status is improved and that she does not feel short of breath any longer. Stated had fever overnight but did not feel feverish upon examination. Denies cp, sob, n/v, numbness, tingling, dizziness, lightheadedness, further bleeding. OBJECTIVE: Vital Signs Period Temp Pulse Resp BP Sys/Jeffery Pulse Ox Last 24 Hr 98.2 F-100.2 F 100-119 15-24 116-151/68-97 100-100 GENERAL: The patient is awake, alert, and fully oriented, in mild acute distress. HEAD: Normal with no signs of trauma. EYES: PERRL, extraocular movements intact, sclera anicteric, conjunctiva clear. No ptosis. NECK: Trachea midline, full range of motion, supple. LUNGS: Breath sounds equal, clear to auscultation bilaterally, no wheezes, no crackles, no accessory muscle use. HEART: Regular rate and rhythm, S1, S2 without murmur, rub or gallop. ABDOMEN: Abdominal binder in place. Tender abdomen in the LUQ, RUQ, RLQ to palpation, no rebound tenderness, no masses. EXTREMITIES: 2+ pulses, warm, well-perfused, no edema. NEUROLOGICAL: Cranial nerves II through XII grossly intact. Normal speech. Muscle strength decreased due to weakness. PSYCH: Normal mood, normal affect. SKIN: Warm, dry, normal turgor, no rashes or lesions noted. Laboratory Results - last 24 hr 09/15/18 09/15/18 05:15 08:00 WBC 14.0 H RBC 2.96 L Hgb 9.4 L Hct 27.7 L MCV 93.6 MCH 31.7 MCHC 33.8 RDW 14.6 Plt Count 221 MPV 8.2 Absolute Neuts (auto) 12.2 H Neutrophils % 86.8 H Lymphocytes % 8.2 D Monocytes % 4.3 Eosinophils % 0.4 D Basophils % 0.3 Nucleated RBC % 0 Sodium 139 Potassium 3.6 Chloride 104 Carbon Dioxide 25 Anion Gap 10 BUN 6.4 L Creatinine 0.6 Est GFR (CKD-EPI)AfAm 126.69 Est GFR (CKD-EPI)NonAf 109.31 Random Glucose 68 L Calcium 7.6 L Phosphorus 2.6 Magnesium 2.1 CBC, BMP 09/15/18 05:15 09/15/18 08:00 INR, PTT INR 1.23 (0.83-1.09) H 09/13/18 12:36 Active Medications Generic Name Dose Route Start Last Admin Trade Name Freq PRN Reason Stop Dose Admin Acetaminophen 650 mg 09/13/18 12:55 09/15/18 10:33 Tylenol - PO 650 mg Q4H PRN Administration PAIN 1-5 Chlorhexidine Gluconate 1 applic 09/13/18 22:00 09/14/18 21:17 Hibiclens For Decolonization - TP 1 applic HS JUDY Administration Docusate Sodium 100 mg 09/15/18 14:15 Colace - PO DAILY JUDY Hydromorphone HCl 1 mg 09/15/18 14:01 Dilaudid Vial - IVPB Q6H PRN PAIN LEVEL 7 - 10 Sodium Chloride 1,000 mls @ 200 mls/hr 09/13/18 15:45 09/15/18 13:47 Normal Saline - IV 200 mls/hr ASDIR [facility]Y Administration Metronidazole 500 mg in 100 mls @ 100 mls/hr 09/14/18 02:00 09/15/18 10:02 Flagyl 500mg Premixed Ivpb - IVPB 100 mls/hr Q8H-IV [facility] Administration Levofloxacin 500 mg in 100 mls @ 100 mls/hr 09/13/18 22:00 09/15/18 10:02 Levaquin 500 Mg Premixed Ivpb - IVPB 100 mls/hr DAILY [facility] Administration Protocol Famotidine/Sodium Chloride 20 mg in 50 mls @ 100 mls/hr 09/14/18 22:00 10:02 Pepcid 20 Mg Premixed Ivpb - IVPB 100 mls/hr BID [facility] Administration Mupirocin 1 applic 09/13/18 22:00 09/15/18 10:03 Bactroban Ointment (For Decolonization) - NS 09/18/18 21:59 1 applic BID [facility] Administration Ondansetron HCl 4 mg 09/13/18 12:55 09/13/18 18:50 Zofran Injection IVPUSH 4 mg Q6H PRN Administration NAUSEA AND/OR VOMITING Oxycodone HCl 5 mg 09/13/18 12:55 09/15/18 09:56 Roxicodone - PO 5 mg Q4H PRN Administration PAIN LEVEL 4 - 6 Oxycodone HCl 10 mg 09/13/18 12:55 09/15/18 12:13 Roxicodone - PO 10 mg Q4H PRN Administration PAIN 1-5 Promethazine HCl 12.5 mg 09/13/18 12:55 09/15/18 07:50 Phenergan Injection - IVPUSH 12.5 mg Q6H PRN Administration NAUSEA-FOR RESCUE AFTER 15 MIN Simethicone 80 mg 09/13/18 14:00 09/15/18 13:47 Mylicon - PO 80 mg TID [facility] Administration Sumatriptan Succinate 100 mg 09/13/18 12:55 Imitrex - PO DAILY PRN HEADACHE ASSESSMENT/PLAN: Tala Woodall is a 48 year old female with a PMHx of Endometriosis, uterine fibroids, and Migraines who presented to the ICU s/p transvaginal hysterectomy with increased abdominal pain and shortness of breath. Uterine Leiomyomas Acute Blood Loss Anemia Migraines NEUROLOGIC - pain control with Dilaudid 1mg q6h prn for severe pain, oxycodone for mild to moderate pain - continue home sumatriptan as needed for migraines CARDIOLOGY - remains tachycardic, in sinus rhythm - continue monitoring on telemetry RESPIRATORY - continue NC as needed - respiratory status improved - encourage incentive spirometer RENAL - no acute issues GASTROINTESTINAL - Abd Ct showing pneumoperitoneum and hemoperitoneum - continuous abdominal exams to assess for change/increased pain - repeat CXR 09/15 showing continued pneumoperitoneum - passing flatus - abdominal binder in place - famotidine - milecon - colace - Dr. Joseph consulted, recs appreciated, no emergent need for surgery GENITOURINARY - POD #3 for transvaginal hysterectomy - continue to monitor for bleeding, trend H/H - magaña removed INFECTIOUS DISEASE - Flagyl and Levofloxacin to cover for urogenital and GI ronna ENDOCRINE - no acute issues HEMATOLOGY - received 2 units of PRBCs - Hgb improved from low of 6, currently 9.4 - continue to trend counts MUSCULOSKELETAL - no acute issues - physical therapy PSYCHIATRY - no acute issues F/E/N - NS @ 200cc/hr - continue to monitor electrolytes and replete as necessary - clear liquid diet PROPHYLAXIS - SCDs - no chemical prophylaxis due to risk of bleeding CODE - full code DISPO - continue to monitor in ICU for resolution of abdominal symptoms and no further bleeding CASE DISCUSSED WITH DR. NGUYEN AND PRIMARY TEAM TIEN CONNOLLY DO - PGY-1 INTERNAL MEDICINE Visit type - Emergency Visit Emergency Visit: No - New Patient This patient is new to me today: Yes Date on this admission: 09/15/18 - Critical Care Critical Care patient: Yes Total Critical Care Time (in minutes): 35 Critical Care Statement: The care of this patient involved high complexity decision making to prevent further life threatening deterioration of the patient 's condition and/or to evaluate & treat vital organ system(s) failure or risk of failure.
[2018-09-15 15:02] LABS: EPI CELLS 10.2 /HPF (0-5/HPF); HYALINE CASTS 2 /lpf (0-8); PH,URINE 5.5 (5.0-8.0); URINE APPEARANCE CLOUDY; URINE BACTERIA 133.5 /hpf (NEGATIVE); URINE BILIRUBIN NEGATIVE (NEGATIVE); URINE COLOR YELLOW; URINE GLUCOSE (UA) NEGATIVE (NEGATIVE); URINE KETONE 2+ (NEGATIVE); URINE LEUK ESTERASE 3+ (NEGATIVE); URINE NITRITE NEGATIVE (NEGATIVE); URINE PROTEIN TRACE (NEGATIVE); URINE RBC 10 /hpf (0-4); URINE UROBILINOGEN 0.2 mg/dL (0.2-1.0); URINE WBC 110 /hpf (0-5)
[2018-09-15 15:20] LABS: YEAST PRESENT (NEGATIVE)
[2018-09-15] MEDS: DOCUSATE SODIUM 100 MG CAPSULE (FP) PO SCH (16:08)
--- NOTE | 2018-09-15 19:51 | PN ---
Teaching Attending Note Name of Resident: Juan Francisco Patel ATTENDING PHYSICIAN STATEMENT I saw and evaluated the patient. I reviewed the resident's note and discussed the case with the resident. I agree with the resident's findings and plan as documented. SUBJECTIVE: Patient is comfortable , no fever or chills. OBJECTIVE: Vital Signs Temperature 98.5 F 09/15/18 18:00 Pulse Rate 115 H 09/15/18 18:00 Respiratory Rate 24 H 09/15/18 18:00 Blood Pressure 128/90 09/15/18 18:00 O2 Sat by Pulse Oximetry (%) 100 09/15/18 07:52 GENERAL: The patient is awake, alert, and fully oriented, in no acute distress. HEAD: Normal with no signs of trauma. EYES: PERRL, extraocular movements intact, sclera anicteric, conjunctiva clear. ENT: Ears normal, oropharynx clear without exudates, moist mucous membranes. NECK: Trachea midline, full range of motion, supple. LUNGS: Breath sounds equal, clear to auscultation bilaterally, no wheezes, no crackles, no accessory muscle use. HEART: mild tachycardia , S1, S2 positive , no murmur, rub or gallop. ABDOMEN: Soft, nontender, nondistended, normoactive bowel sounds, no guarding, no rebound, no hepatosplenomegaly, no masses. EXTREMITIES: 2+ pulses, warm, well-perfused, no edema. NEUROLOGICAL: Cranial nerves II through XII grossly intact. Normal speech, gait not observed. PSYCH: Normal mood, normal affect. SKIN: Warm, dry, normal turgor, no rashes or lesions noted CBCD WBC 14.0 K/mm3 (4.0-10.0) H 09/15/18 05:15 RBC 2.96 M/mm3 (3.60-5.2) L 09/15/18 05:15 Hgb 9.4 GM/dL (10.7-15.3) L 09/15/18 05:15 Hct 27.7 % (32.4-45.2) L 09/15/18 05:15 MCV 93.6 fl (80-96) 09/15/18 05:15 MCHC 33.8 g/dl (32.0-36.0) 09/15/18 05:15 RDW 14.6 % (11.6-15.6) 09/15/18 05:15 Plt Count 221 K/MM3 (134-434) 09/15/18 05:15 MPV 8.2 fl (7.5-11.1) 09/15/18 05:15 CMP Sodium 139 mmol/L (136-145) 09/15/18 08:00 Potassium 3.6 mmol/L (3.5-5.1) 09/15/18 08:00 Chloride 104 mmol/L (98-107) 09/15/18 08:00 Carbon Dioxide 25 mmol/L (21-32) 09/15/18 08:00 Anion Gap 10 MMOL/L (8-16) 09/15/18 08:00 BUN 6.4 mg/dL (7-18) L 09/15/18 08:00 Creatinine 0.6 mg/dL (0.55-1.3) 09/15/18 08:00 Random Glucose 68 mg/dL (74-106) L 09/15/18 08:00 Calcium 7.6 mg/dL (8.5-10.1) L 09/15/18 08:00 Total Bilirubin 0.7 mg/dL (0.2-1) 09/14/18 05:10 AST 13 U/L (15-37) L 09/14/18 05:10 ALT 15 U/L (13-61) 09/14/18 05:10 Alkaline Phosphatase 33 U/L (45-117) L 09/14/18 05:10 Total Protein 4.8 g/dl (6.4-8.2) L 09/14/18 05:10 Albumin 2.3 g/dl (3.4-5.0) L 09/14/18 05:10 Current Medications Generic Name Dose Route Start Last Admin Trade Name Freq PRN Reason Stop Dose Admin Acetaminophen 650 mg 09/13/18 12:55 09/15/18 10:33 Tylenol - PO 650 mg Q4H PRN Administration PAIN 1-5 Acetaminophen 1,000 mg 09/15/18 19:43 Ofirmev Injection - IVPB Q6H PRN PAIN LEVEL 4 - 6 Chlorhexidine Gluconate 1 applic 09/13/18 22:00 09/14/18 21:17 Hibiclens For Decolonization - TP 1 applic HS JUDY Administration Docusate Sodium 100 mg 09/15/18 14:15 09/15/18 16:08 Colace - PO 100 mg DAILY JUDY Administration Hydromorphone HCl 1 mg 09/15/18 14:01 Dilaudid Vial - IVPB Q6H PRN PAIN LEVEL 7 - 10 Sodium Chloride 1,000 mls @ 200 mls/hr 09/13/18 15:45 09/15/18 16:13 Normal Saline - IV Not Given ASDIR JUDY Metronidazole 500 mg in 100 mls @ 100 mls/hr 09/14/18 02:00 09/15/18 17:30 Flagyl 500mg Premixed Ivpb - IVPB 100 mls/hr Q8H-IV JUDY Administration Levofloxacin 500 mg in 100 mls @ 100 mls/hr 09/13/18 22:00 09/15/18 10:02 Levaquin 500 Mg Premixed Ivpb - IVPB 100 mls/hr DAILY JUDY Administration Protocol Famotidine/Sodium Chloride 20 mg in 50 mls @ 100 mls/hr 09/14/18 22:00 10:02 Pepcid 20 Mg Premixed Ivpb - IVPB 100 mls/hr BID JUDY Administration Mupirocin 1 applic 09/13/18 22:00 09/15/18 10:03 Bactroban Ointment (For Decolonization) - NS 09/18/18 21:59 1 applic BID JUDY Administration Ondansetron HCl 4 mg 09/13/18 12:55 09/13/18 18:50 Zofran Injection IVPUSH 4 mg Q6H PRN Administration NAUSEA AND/OR VOMITING Oxycodone HCl 5 mg 09/13/18 12:55 09/15/18 16:08 Roxicodone - PO 5 mg Q4H PRN Administration PAIN LEVEL 4 - 6 Oxycodone HCl 10 mg 09/13/18 12:55 09/15/18 18:45 Roxicodone - PO 10 mg Q4H PRN Administration PAIN 1-5 Promethazine HCl 12.5 mg 09/13/18 12:55 09/15/18 07:50 Phenergan Injection - IVPUSH 12.5 mg Q6H PRN Administration NAUSEA-FOR RESCUE AFTER 15 MIN Simethicone 80 mg 09/13/18 14:00 09/15/18 13:47 Mylicon - PO 80 mg TID JUDY Administration Sumatriptan Succinate 100 mg 09/13/18 12:55 Imitrex - PO DAILY PRN HEADACHE Home Medications Medication Instructions Recorded Ibuprofen [Motrin -] 400 mg PO PRN PRN 09/05/18 Naproxen 250 mg PO PRN PRN 09/05/18 Sumatriptan Succinate 100 mg PO PRN PRN 09/05/18 Acetaminophen [Tylenol -] 500 mg PO Q6H 09/12/18 ASSESSMENT AND PLAN: Patient is a 48 year old female with a one day hx of vaginal hysterectomy c/o having shortness of breath and unable to take deep breaths. #POD #4 Status post vaginal hysterectomy s/p transfusion of 2 units of PrBC. Patient is feeling better, seen by will continue to monitor. daily abdominal Xray. CT abdomen and pelvis: In comparison to previous CT on 09/12/18 ; increased the size of pneumoperitoneum. possible due to questionable viscus perforation / possible small amount of free intraperitoneal air within the right adnexa. No Obvious interval change is seen in regards to free intraperitoneal fluid within the pelvis and abdomen which is at least partially hemorrhagic in nature. # Acute blood Loss: due to bleed , s/p 2 PRBC stable at this time. # Pneumoperitoneum: as above , will continue to monitor # Hemoperitoneum: continue to monitor. DVT Px: FAREEDS
[2018-09-15] MEDS: ONDANSETRON 4 MG/2 ML VIAL IVPUSH PRN (19:53)
[2018-09-15] MEDS: ACETAMINOPHEN 1000 MG/100 ML VIAL (NON FORMULARY) IVPB PRN (19:58)
--- NOTE | 2018-09-15 21:23 | PN ---
Progress Note (short form) - Note Progress Note: Patient seen and evaluated. Status post vaginal hysterectomy. She admits to some improvement but continues to experience pain with movement. Chest xray reviewed, significant volume pneumoperitoneum observed. PE : Chest : Decreased breathing sounds ABD : Mild tenderness to palpation, no guarding, no rebound. Pelvis : Vagina : no bleeding, no leakage of fluid. A/P : Status post vaginal hysterectomy Pneumoperitoneum R/O atelectasis R/O pneumonia Continue antibiotic. Continue management as per ICU Problem List - Problems (1) Pelvic pain Code(s): R10.2 - PELVIC AND PERINEAL PAIN
[2018-09-15] MEDS: CHLORHEXIDINE GLUCONATE 4% CLEANSER FOR DECOLONIZATION TP SCH (21:31)
[2018-09-16] MEDS: HYDROmorphone HCl 2 MG/ML VIAL IVPB PRN ×3 (00:13→13:30)
[2018-09-16] MEDS: oxyCODONE HCL 5 MG TABLET PO PRN (03:15)
[2018-09-16] MEDS: PROMETHAZINE HCL 25 MG/1 ML VIAL IVPUSH PRN (04:19)
[2018-09-16] MEDS ORDERED: ONDANSETRON 4 MG/2 ML VIAL IVPUSH PRN (04:43)
[2018-09-16] MEDS: SIMETHICONE 80 MG TAB.CHEW (FP) PO SCH ×3 (05:45→21:29)
[2018-09-16 06:27] LABS: HEMATOCRIT 26.4 % (32.4-45.2); HEMOGLOBIN 9.1 GM/dL (10.7-15.3); MCH 31.6 pg (25.7-33.7); MCHC 34.6 g/dl (32.0-36.0); MEAN CELL VOLUME 91.4 fl (80-96); MEAN PLT VOLUME 7.9 fl (7.5-11.1); PLATELET COUNT 288 K/MM3 (134-434); RBC 2.89 M/mm3 (3.60-5.2); RDW 14.7 % (11.6-15.6); WHITE BLOOD COUNT 12.6 K/mm3 (4.0-10.0)
[2018-09-16 06:48] LABS: BLOOD UREA NITROGEN 5.3 mg/dL (7-18); CALCIUM 7.5 mg/dL (8.5-10.1); CREATININE 0.5 mg/dL (0.55-1.3); MAGNESIUM 2.2 mg/dL (1.8-2.4); POTASSIUM 3.4 mmol/L (3.5-5.1)
[2018-09-16] MEDS ORDERED: NAPH,MB-DB/K PH,MBDB POWDER PACKET PO ONE (06:58)
[2018-09-16] MEDS: ACETAMINOPHEN 1000 MG/100 ML VIAL (NON FORMULARY) IVPB PRN (07:36)
[2018-09-16] MEDS: DOCUSATE SODIUM 100 MG CAPSULE (FP) PO SCH (09:03)
[2018-09-16] MEDS: FAMOTIDINE 20 MG/50 ML IVPB 20 MG/50 ML MG IVPB SCH ×2 (09:04→21:32)
--- NOTE | 2018-09-16 10:11 | PN ---
Teaching Attending Note Name of Resident: Dave Reyes ATTENDING PHYSICIAN STATEMENT I saw and evaluated the patient. I reviewed the resident's note and discussed the case with the resident. I agree with the resident's findings and plan as documented. SUBJECTIVE: Patient seen and examined in the ICU. Awake and alert. Abdominal discomfort feels increased in the upper part of the abdomen. Breathing feels about the same. H & H stable. CXR: Pneumoperitoneum increased Intake & Output 09/13/18 09/14/18 09/15/18 09/16/18 23:59 23:59 23:59 23:59 Intake Total 5400 4245 5508 2017 Output Total 1800 4100 2240 1200 Balance 3600 145 3268 817 Weight 152 lb 159 lb 9.6 oz 159 lb 9.6 oz Last Vital Signs Temp Pulse Resp BP Pulse Ox 99.4 F 120 H 18 141/88 100 09/16/18 06:00 09/16/18 08:00 09/16/18 08:00 09/16/18 08:00 09/16/18 07:56 Active Medications Acetaminophen (Tylenol -) 650 mg PO Q4H PRN PRN Reason: PAIN 1-5 Last Admin: 09/15/18 10:33 Dose: 650 mg Acetaminophen (Ofirmev Injection -) 1,000 mg IVPB Q6H PRN PRN Reason: PAIN LEVEL 4 - 6 Last Admin: 09/16/18 07:36 Dose: 1,000 mg Chlorhexidine Gluconate (Hibiclens For Decolonization -) 1 applic TP HS [facility] Last Admin: 09/15/18 21:31 Dose: 1 applic Docusate Sodium (Colace -) 100 mg PO DAILY [facility] Last Admin: 09/16/18 09:03 Dose: 100 mg Hydromorphone HCl (Dilaudid Vial -) 1 mg IVPB Q6H PRN PRN Reason: PAIN LEVEL 7 - 10 Last Admin: 09/16/18 07:34 Dose: 1 mg Sodium Chloride (Normal Saline -) 1,000 mls @ 200 mls/hr IV ASDIR JUDY Last Admin: 09/15/18 16:13 Dose: Not Given Metronidazole (Flagyl 500mg Premixed Ivpb -) 500 mg in 100 mls @ 100 mls/hr IVPB Q8H-IV JUDY Last Admin: 09/16/18 09:03 Dose: 100 mls/hr Levofloxacin (Levaquin 500 Mg Premixed Ivpb -) 500 mg in 100 mls @ 100 mls/hr IVPB DAILY [facility]; Protocol Last Admin: 09/16/18 09:04 Dose: 100 mls/hr Famotidine/Sodium Chloride (Pepcid 20 Mg Premixed Ivpb -) 20 mg in 50 mls @ 100 mls/hr IVPB BID [facility] Last Admin: 09/16/18 09:04 Dose: 100 mls/hr Mupirocin (Bactroban Ointment (For Decolonization) -) 1 applic NS BID [facility] Stop: 09/18/18 21:59 Last Admin: 09/15/18 21:31 Dose: 1 applic Ondansetron HCl (Zofran Injection) 4 mg IVPUSH Q6H PRN PRN Reason: NAUSEA Oxycodone HCl (Roxicodone -) 5 mg PO Q4H PRN PRN Reason: PAIN LEVEL 4 - 6 Last Admin: 09/16/18 03:15 Dose: 5 mg Oxycodone HCl (Roxicodone -) 10 mg PO Q4H PRN PRN Reason: PAIN 1-5 Last Admin: 09/15/18 18:45 Dose: 10 mg Simethicone (Mylicon -) 80 mg PO TID [facility] Last Admin: 09/16/18 05:45 Dose: 80 mg Sumatriptan Succinate (Imitrex -) 100 mg PO DAILY PRN PRN Reason: HEADACHE Gen: Awake and alert, uncomfortable due to pain Heart: S1S2, regular Lung: decreased breath sounds at the bases with a few scattered rhonchi Abd: softly distended, diffuse tenderness to palpation, no guarding or rigidity Ext: no edema Laboratory Results - last 24 hr 09/15/18 09/16/18 09/16/18 08:11 05:20 05:20 WBC 12.6 H RBC 2.89 L Hgb 9.1 L Hct 26.4 L MCV 91.4 MCH 31.6 MCHC 34.6 RDW 14.7 Plt Count 288 D MPV 7.9 Sodium 138 Potassium 3.4 L Chloride 103 Carbon Dioxide 27 Anion Gap 8 BUN 5.3 L Creatinine 0.5 L Est GFR (CKD-EPI)AfAm 134.52 Est GFR (CKD-EPI)NonAf 116.07 Random Glucose 105 Calcium 7.5 L Phosphorus 2.0 L Magnesium 2.2 Urine Color Yellow Urine Appearance Cloudy Urine pH 5.5 Ur Specific [place] 1.012 Urine Protein Trace Urine Glucose (UA) Negative Urine Ketones 2+ H Urine Blood 3+ H Urine Nitrite Negative Urine Bilirubin Negative Urine Urobilinogen 0.2 Ur Leukocyte Esterase 3+ H Urine WBC (Auto) 110 Urine RBC (Auto) 10 Urine Casts (Auto) 2 U Epithel Cells (Auto) 10.2 Urine Bacteria (Auto) 133.5 Urine Yeast (Auto) Present ASSESSMENT AND PLAN: POD #4: Transvaginal Hysterectomy with surgical bleed Increasing Pneumoperitoneum on imaging Uterine Leiomyomas Acute Blood Loss Anemia - Surgical follow up - Follow abdominal exam - Normal transfusion thresholds - Pain control - Monitor H/H - EASTER BUNNY f/u - IVF - NPO for now - Mechanical VTE prophylaxis - Encourage Incentive Spirometry - OOB to chair - Requies ICU monitoring due to increased Pneumoperitoneum Dr Reno Critical care time spent in reviewing chart, evaluating patient and formulating plan - 36 minutes.
--- NOTE | 2018-09-16 12:32 | PN ---
Physical Exam: SUBJECTIVE: Patient seen and examined at the bedside. Reported that she continued to have abd pain and some nausea. Stated that breathing had improved. Had been passing flatus. Denied cp, sob, fever, chills, headaches, dizziness, lightheadedness, numbness, tingling. Has worsening of abdominal exam, will need to go to surgery with Dr. Torres, Dr. Joseph, Dr. Guerrero. Patient went for diagnostic laproscopy, evacuation of pelvic hematomas, open laparatomy primary repair of rectal perforation, abdominal washout and right ovarian cystotomy, arrived back in unit at 7:55. During surgery, patient received 2400cc of LR and EBL was 50mls. Output was 525mls through the magaña. Drain was placed in the LLQ. Post-op surgery recommendation were communicated to the ICU team. Patient to continue on Levaquin, Flagyl, IV LR @ 200cc/hr. CARDIOPULMONARY TECHNOLOGIST CHIEF pump was started for pain. Give boluses as necessary. to remain NPO. ID consult to be put in place. Continue to monitor hemodynamics, urine output, drain output , and f/u abdominal exam. OBJECTIVE: Vital Signs Period Temp Pulse Resp BP Sys/Jeffery Pulse Ox Last 24 Hr 98.5 F-99.4 F 106-132 17-27 123-152/85-105 100-100 GENERAL: The patient is awake, alert, and fully oriented, in mild acute distress. HEAD: Normal with no signs of trauma. EYES: PERRL, extraocular movements intact, sclera anicteric, conjunctiva clear. No ptosis. NECK: Trachea midline, full range of motion, supple. LUNGS: Breath sounds equal, clear to auscultation bilaterally, no wheezes, no crackles, no accessory muscle use. HEART: Regular rate and rhythm, S1, S2 without murmur, rub or gallop. ABDOMEN: Abdominal binder in place. Tender abdomen diffusely, rebound tenderness , distended. No masses palpated EXTREMITIES: 2+ pulses, warm, well-perfused, no edema. NEUROLOGICAL: Cranial nerves II through XII grossly intact. Normal speech. Muscle strength decreased due to weakness. PSYCH: Normal mood, normal affect. SKIN: Warm, dry, normal turgor, no rashes or lesions noted. Laboratory Results - last 24 hr 09/15/18 09/16/18 09/16/18 08:11 05:20 05:20 WBC 12.6 H RBC 2.89 L Hgb 9.1 L Hct 26.4 L MCV 91.4 MCH 31.6 MCHC 34.6 RDW 14.7 Plt Count 288 D MPV 7.9 Sodium 138 Potassium 3.4 L Chloride 103 Carbon Dioxide 27 Anion Gap 8 BUN 5.3 L Creatinine 0.5 L Est GFR (CKD-EPI)AfAm 134.52 Est GFR (CKD-EPI)NonAf 116.07 Random Glucose 105 Calcium 7.5 L Phosphorus 2.0 L Magnesium 2.2 Urine Color Yellow Urine Appearance Cloudy Urine pH 5.5 Ur Specific [place] 1.012 Urine Protein Trace Urine Glucose (UA) Negative Urine Ketones 2+ H Urine Blood 3+ H Urine Nitrite Negative Urine Bilirubin Negative Urine Urobilinogen 0.2 Ur Leukocyte Esterase 3+ H Urine WBC (Auto) 110 Urine RBC (Auto) 10 Urine Casts (Auto) 2 U Epithel Cells (Auto) 10.2 Urine Bacteria (Auto) 133.5 Urine Yeast (Auto) Present Active Medications Generic Name Dose Route Start Last Admin Trade Name Freq PRN Reason Stop Dose Admin Acetaminophen 650 mg 09/13/18 12:55 09/15/18 10:33 Tylenol - PO 650 mg Q4H PRN Administration PAIN 1-5 Acetaminophen 1,000 mg 09/15/18 19:43 09/16/18 07:36 Ofirmev Injection - IVPB 1,000 mg Q6H PRN Administration PAIN LEVEL 4 - 6 Chlorhexidine Gluconate 1 applic 09/13/18 22:00 09/15/18 21:31 Hibiclens For Decolonization - TP 1 applic HS JUDY Administration Docusate Sodium 100 mg 09/15/18 14:15 09/16/18 09:03 Colace - PO 100 mg DAILY JUDY Administration Hydromorphone HCl 1 mg 09/15/18 14:01 09/16/18 07:34 Dilaudid Vial - IVPB 1 mg Q6H PRN Administration PAIN LEVEL 7 - 10 Sodium Chloride 1,000 mls @ 200 mls/hr 09/13/18 15:45 09/15/18 16:13 Normal Saline - IV Not Given ASDIR JUDY Metronidazole 500 mg in 100 mls @ 100 mls/hr 09/14/18 02:00 09/16/18 09:03 Flagyl 500mg Premixed Ivpb - IVPB 100 mls/hr Q8H-IV JUDY Administration Levofloxacin 500 mg in 100 mls @ 100 mls/hr 09/13/18 22:00 09/16/18 09:04 Levaquin 500 Mg Premixed Ivpb - IVPB 100 mls/hr DAILY JUDY Administration Protocol Famotidine/Sodium Chloride 20 mg in 50 mls @ 100 mls/hr 09/14/18 22:00 09:04 Pepcid 20 Mg Premixed Ivpb - IVPB 100 mls/hr BID JUDY Administration Mupirocin 1 applic 09/13/18 22:00 09/15/18 21:31 Bactroban Ointment (For Decolonization) - NS 09/18/18 21:59 1 applic BID JUDY Administration Ondansetron HCl 4 mg 09/16/18 04:43 Zofran Injection IVPUSH Q6H PRN NAUSEA Oxycodone HCl 5 mg 09/13/18 12:55 09/16/18 03:15 Roxicodone - PO 5 mg Q4H PRN Administration PAIN LEVEL 4 - 6 Oxycodone HCl 10 mg 09/13/18 12:55 09/15/18 18:45 Roxicodone - PO 10 mg Q4H PRN Administration PAIN 1-5 Simethicone 80 mg 09/13/18 14:00 09/16/18 05:45 Mylicon - PO 80 mg TID JUDY Administration Sumatriptan Succinate 100 mg 09/13/18 12:55 Imitrex - PO DAILY PRN HEADACHE ASSESSMENT/PLAN: Talia Woodall is a 48 year old female with a PMHx of Endometriosis, uterine fibroids, and Migraines who presented to the ICU s/p transvaginal hysterectomy with increased abdominal pain and shortness of breath. Uterine Leiomyomas Acute Blood Loss Anemia Migraines NEUROLOGIC - CARDIOPULMONARY TECHNOLOGIST CHIEF pump for post-op pain - continue home sumatriptan as needed for migraines, hold while NPO CARDIOLOGY - remains tachycardic, in sinus rhythm, likely 2/2 to pain - continue monitoring on telemetry RESPIRATORY - continue NC as needed - respiratory status improved - encourage incentive spirometer RENAL - no acute issues GASTROINTESTINAL - Abd Ct showing pneumoperitoneum and hemoperitoneum - continuous abdominal exams to assess for change/increased pain - repeat CXR 7 showing continued pneumoperitoneum - repeat CXR 09/16 showing increased amount of free air under the diaphragm, likely perforation - passing flatus - abdominal binder in place - famotidine - milecon hold while NPO - colace hold while NPO - Zofran for nausea - Dr. Joseph consulted, surgery to repair rectum perforation performed - POD #1 recommendations to continue abx, fluids, CARDIOPULMONARY TECHNOLOGIST CHIEF pump for pain, NPO status , ID consultation, monitor hemodynamics, fluid boluses as necessary, urine output monitoring - drain in place, monitor output GENITOURINARY - POD #4 for transvaginal hysterectomy - continue to monitor for bleeding, trend H/H INFECTIOUS DISEASE - Flagyl and Levofloxacin to cover for urogenital and GI ronna - ID consult ENDOCRINE - no acute issues HEMATOLOGY - received 2 units of PRBCs - Hgb improved from low of 6, currently 9.4 - continue to trend counts, monitor H/H and transfuse as needed MUSCULOSKELETAL - no acute issues - physical therapy consult placed PSYCHIATRY - no acute issues F/E/N - NS @ 200cc/hr - continue to monitor electrolytes and replete as necessary - NPO post op PROPHYLAXIS - SCDs - no chemical prophylaxis due to risk of bleeding CODE - full code DISPO - continue to monitor in ICU CASE DISCUSSED WITH DR. NGUYEN AND PRIMARY TEAM TIEN CONNOLLY DO - PGY-1 INTERNAL MEDICINE Visit type - Emergency Visit Emergency Visit: No - New Patient This patient is new to me today: No - Critical Care Critical Care patient: Yes Total Critical Care Time (in minutes): 43 Critical Care Statement: The care of this patient involved high complexity decision making to prevent further life threatening deterioration of the patient 's condition and/or to evaluate & treat vital organ system(s) failure or risk of failure.
[2018-09-16] MEDS: MUPIROCIN 2% TOPICAL OINTMENT FOR DECOLONIZATION NS SCH ×2 (13:31→21:30)
[2018-09-16] MEDS: SODIUM CHLORIDE 1,000 ML IV SCH (13:32)
--- NOTE | 2018-09-16 13:55 | PN ---
Progress Note (short form) - Note Progress Note: Patient is feeling worse today. Vital Signs Temperature 99.1 F 09/16/18 10:30 Pulse Rate 108 H 09/16/18 12:00 Respiratory Rate 18 09/16/18 12:00 Blood Pressure 123/90 09/16/18 12:00 O2 Sat by Pulse Oximetry (%) 100 09/16/18 07:56 GENERAL: The patient is awake, alert, and fully oriented, in no acute distress. HEAD: Normal with no signs of trauma. EYES: PERRL, extraocular movements intact, sclera anicteric, conjunctiva clear. ENT: Ears normal, oropharynx clear without exudates, moist mucous membranes. NECK: Trachea midline, full range of motion, supple. LUNGS: Breath sounds equal, clear to auscultation bilaterally, no wheezes, no crackles, no accessory muscle use. HEART: mild tachycardia , S1, S2 positive , no murmur, rub or gallop. ABDOMEN: positive for tenderness, mildly distended, positive BS, positive guarding , no hepatosplenomegaly, no masses. EXTREMITIES: 2+ pulses, warm, well-perfused, no edema. NEUROLOGICAL: Cranial nerves II through XII grossly intact. Normal speech, gait not observed. PSYCH: Normal mood, normal affect. SKIN: Warm, dry, normal turgor, no rashes or lesions noted CBCD WBC 12.6 K/mm3 (4.0-10.0) H 09/16/18 05:20 RBC 2.89 M/mm3 (3.60-5.2) L 09/16/18 05:20 Hgb 9.1 GM/dL (10.7-15.3) L 09/16/18 05:20 Hct 26.4 % (32.4-45.2) L 09/16/18 05:20 MCV 91.4 fl (80-96) 09/16/18 05:20 MCHC 34.6 g/dl (32.0-36.0) 09/16/18 05:20 RDW 14.7 % (11.6-15.6) 09/16/18 05:20 Plt Count 288 K/MM3 (134-434) D 09/16/18 05:20 MPV 7.9 fl (7.5-11.1) 09/16/18 05:20 CMP Sodium 138 mmol/L (136-145) 09/16/18 05:20 Potassium 3.4 mmol/L (3.5-5.1) L 09/16/18 05:20 Chloride 103 mmol/L (98-107) 09/16/18 05:20 Carbon Dioxide 27 mmol/L (21-32) 09/16/18 05:20 Anion Gap 8 MMOL/L (8-16) 09/16/18 05:20 BUN 5.3 mg/dL (7-18) L 09/16/18 05:20 Creatinine 0.5 mg/dL (0.55-1.3) L 09/16/18 05:20 Random Glucose 105 mg/dL (74-106) 09/16/18 05:20 Calcium 7.5 mg/dL (8.5-10.1) L 09/16/18 05:20 Total Bilirubin 0.7 mg/dL (0.2-1) 09/14/18 05:10 AST 13 U/L (15-37) L 09/14/18 05:10 ALT 15 U/L (13-61) 09/14/18 05:10 Alkaline Phosphatase 33 U/L (45-117) L 09/14/18 05:10 Total Protein 4.8 g/dl (6.4-8.2) L 09/14/18 05:10 Albumin 2.3 g/dl (3.4-5.0) L 09/14/18 05:10 Current Medications Generic Name Dose Route Start Last Admin Trade Name Freq PRN Reason Stop Dose Admin Acetaminophen 650 mg 09/13/18 12:55 09/15/18 10:33 Tylenol - PO 650 mg Q4H PRN Administration PAIN 1-5 Acetaminophen 1,000 mg 09/15/18 19:43 09/16/18 07:36 Ofirmev Injection - IVPB 1,000 mg Q6H PRN Administration PAIN LEVEL 4 - 6 Chlorhexidine Gluconate 1 applic 09/13/18 22:00 09/15/18 21:31 Hibiclens For Decolonization - TP 1 applic HS JUDY Administration Docusate Sodium 100 mg 09/15/18 14:15 09/16/18 09:03 Colace - PO 100 mg DAILY JUDY Administration Hydromorphone HCl 1 mg 09/15/18 14:01 09/16/18 13:30 Dilaudid Vial - IVPB 1 mg Q6H PRN Administration PAIN LEVEL 7 - 10 Sodium Chloride 1,000 mls @ 200 mls/hr 09/13/18 15:45 09/16/18 13:32 Normal Saline - IV 200 mls/hr ASDIR JUDY Administration Metronidazole 500 mg in 100 mls @ 100 mls/hr 09/14/18 02:00 09/16/18 09:03 Flagyl 500mg Premixed Ivpb - IVPB 100 mls/hr Q8H-IV JUDY Administration Levofloxacin 500 mg in 100 mls @ 100 mls/hr 09/13/18 22:00 09/16/18 09:04 Levaquin 500 Mg Premixed Ivpb - IVPB 100 mls/hr DAILY JUDY Administration Protocol Famotidine/Sodium Chloride 20 mg in 50 mls @ 100 mls/hr 09/14/18 22:00 09:04 Pepcid 20 Mg Premixed Ivpb - IVPB 100 mls/hr BID JUDY Administration Mupirocin 1 applic 09/13/18 22:00 09/16/18 13:31 Bactroban Ointment (For Decolonization) - NS 09/18/18 21:59 1 applic BID JUDY Administration Ondansetron HCl 4 mg 09/16/18 04:43 Zofran Injection IVPUSH Q6H PRN NAUSEA Oxycodone HCl 5 mg 09/13/18 12:55 09/16/18 03:15 Roxicodone - PO 5 mg Q4H PRN Administration PAIN LEVEL 4 - 6 Oxycodone HCl 10 mg 09/13/18 12:55 09/15/18 18:45 Roxicodone - PO 10 mg Q4H PRN Administration PAIN 1-5 Simethicone 80 mg 09/13/18 14:00 09/16/18 13:31 Mylicon - PO Not Given TID JUDY Sumatriptan Succinate 100 mg 09/13/18 12:55 Imitrex - PO DAILY PRN HEADACHE Home Medications Medication Instructions Recorded Ibuprofen [Motrin -] 400 mg PO PRN PRN 09/05/18 Naproxen 250 mg PO PRN PRN 09/05/18 Sumatriptan Succinate 100 mg PO PRN PRN 09/05/18 Acetaminophen [Tylenol -] 500 mg PO Q6H 09/12/18 ASSESSMENT AND PLAN: Patient is a 48 year old female with a one day hx of vaginal hysterectomy c/o having shortness of breath and unable to take deep breaths. #POD #5 Status post vaginal hysterectomy s/p transfusion of 2 units of PrBC. abdominal Xray. Patient is more distended today, going to OR by and . CT abdomen and pelvis: In comparison to previous CT on 09/12/18 ; increased the size of pneumoperitoneum. possible due to questionable viscus perforation /possible small amount of free intraperitoneal air within the right adnexa. repeat abdominal xray: large volume free air, surgical evaluation is required. Discussed with dr. Guerrero and the surgical team and ICU team, patient will be going to OR for further care today. further management per ICU/Surgery and OBGYN. # Acute blood Loss: due to bleed , s/p 2 PRBC stable at this time. # Pneumoperitoneum: as above , will continue to monitor # Hemoperitoneum: continue to monitor. DVT Px: TEDS No further acute medical issues at this time. call us if needed. Thank you for the consult. Visit type - Emergency Visit Emergency Visit: No - New Patient This patient is new to me today: No - Critical Care Critical Care patient: No - Discharge Referral Referred to [facility] No
--- NOTE | 2018-09-16 15:47 | PN ---
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 Called postop in consultation POD# s/p total vaginal hysterectomy. She had a ct scan showing hemo and pneumoperitonuim. She has been tachycardic mosto of the night. She has made inadequate urine. H&H dropped for 6 grams from a prepop 9 grams. She is experienceing much more abdominal distension and pain this morning. tachycardia is persistent. - Current Medication List Current Medications: Active Medications Acetaminophen (Tylenol -) 650 mg PO Q4H PRN PRN Reason: PAIN 1-5 Last Admin: 09/15/18 10:33 Dose: 650 mg Acetaminophen (Ofirmev Injection -) 1,000 mg IVPB Q6H PRN PRN Reason: PAIN LEVEL 4 - 6 Last Admin: 09/16/18 07:36 Dose: 1,000 mg Chlorhexidine Gluconate (Hibiclens For Decolonization -) 1 applic TP HS [facility] Last Admin: 09/15/18 21:31 Dose: 1 applic Docusate Sodium (Colace -) 100 mg PO DAILY [facility] Last Admin: 09/16/18 09:03 Dose: 100 mg Hydromorphone HCl (Dilaudid Vial -) 1 mg IVPB Q6H PRN PRN Reason: PAIN LEVEL 7 - 10 Last Admin: 09/16/18 13:30 Dose: 1 mg Sodium Chloride (Normal Saline -) 1,000 mls @ 200 mls/hr IV ASDIR [facility] Last Admin: 09/16/18 13:32 Dose: 200 mls/hr Metronidazole (Flagyl 500mg Premixed Ivpb -) 500 mg in 100 mls @ 100 mls/hr IVPB Q8H-IV JUDY Last Admin: 09/16/18 09:03 Dose: 100 mls/hr Levofloxacin (Levaquin 500 Mg Premixed Ivpb -) 500 mg in 100 mls @ 100 mls/hr IVPB DAILY [facility]; Protocol Last Admin: 09/16/18 09:04 Dose: 100 mls/hr Famotidine/Sodium Chloride (Pepcid 20 Mg Premixed Ivpb -) 20 mg in 50 mls @ 100 mls/hr IVPB BID [facility] Last Admin: 09/16/18 09:04 Dose: 100 mls/hr Mupirocin (Bactroban Ointment (For Decolonization) -) 1 applic NS BID [facility] Stop: 09/18/18 21:59 Last Admin: 09/16/18 13:31 Dose: 1 applic Ondansetron HCl (Zofran Injection) 4 mg IVPUSH Q6H PRN PRN Reason: NAUSEA Oxycodone HCl (Roxicodone -) 5 mg PO Q4H PRN PRN Reason: PAIN LEVEL 4 - 6 Last Admin: 09/16/18 03:15 Dose: 5 mg Oxycodone HCl (Roxicodone -) 10 mg PO Q4H PRN PRN Reason: PAIN 1-5 Last Admin: 09/15/18 18:45 Dose: 10 mg Simethicone (Mylicon -) 80 mg PO TID [facility] Last Admin: 09/16/18 13:31 Dose: Not Given Sumatriptan Succinate (Imitrex -) 100 mg PO DAILY PRN PRN Reason: HEADACHE - Objective Vital Signs: Vital Signs Temperature 99.1 F 09/16/18 15:05 Pulse Rate 115 H 09/16/18 14:00 Respiratory Rate 16 09/16/18 14:00 Blood Pressure 129/88 09/16/18 14:00 O2 Sat by Pulse Oximetry (%) 100 09/16/18 07:56 Vital Signs Period Temp Pulse Resp BP Sys/Jeffery Pulse Ox Last 24 Hr 98.5 F-99.4 F 106-132 16-27 123-152/85-105 100-100 Intake & Output 09/15/18 09/16/18 09/16/18 23:59 07:59 15:59 Intake Total 3217 2017 450 Output Total 1590 1200 1100 Balance 1627 817 -650 Weight 159 lb 9.6 oz Intake: IV 2842016 Normal Saline - 1,000 ml 2842016 @ 200 mls/hr IV ASDIR [facility] Rx#:[id number] IVPB 200 250 Oral 175 200 Output: Urine 1590 1200 1100 Lerma 1590 Void 1200 1100 Other: Voiding Method Bedpan Bedpan Bedpan # Unmeasured Voids Void 4 Bowel Movement No No Weight Measurement Method [facility] Constitutional: Yes: Well Nourished, No Distress, Calm Eyes: Yes: Conjunctiva Clear, EOM Intact HENT: Yes: Atraumatic, Normocephalic Neck: Yes: Supple, Trachea Midline Cardiovascular: Yes: Regular Rate and Rhythm, S1, S2 Respiratory: Yes: Regular, CTA Bilaterally Gastrointestinal: Yes: Normal Bowel Sounds, Soft, Tenderness, Tenderness, Epigastrium ...Rectal Exam: Yes: Hemorrhoids/External. No: Mass, Sphincter Tone Normal, Sphincter Tone Poor Genitourinary: No: CVA Tenderness - Left, CVA Tenderness - Right Breast(s): No: Mass, Skin Changes Musculoskeletal: No: Muscle Pain, Muscle Weakness Extremities: No: Cool, Cyanosis Edema: No Peripheral Pulses WNL: Yes Peripheral Pulses: Left Radial: 2+, Right Radial: 2+, Left Doralis Pedis: 2+, Right Dorsalis Pedis: 2+, Left Femoral: 2+, Right Femoral: 2+ Integumentary: No: Jaundice, Rash Neurological: Yes: Alert, Oriented Psychiatric: Yes: Alert, Oriented Labs: CBC, BMP 09/16/18 05:20 09/16/18 05:20 INR, PTT INR 1.23 (0.83-1.09) H 09/13/18 12:36 Problem List - Problems (1) Hemoperitoneum Assessment/Plan: 48yo female with less then 24hrs post of from vaginal hysterectomy pneumoperitoniem and even a small amount of hemoperitoneium is not concerning post operative day one. POD#4 s/p total vaginal hysterectomy patient abdominal pain is worsening compared to the previous day. Larger pnuemoperitoneum for unknown source. given persistent abdominal pain and tachycardia we will proceed with diagnostic laparoscopy with Dr. Guerrero ICU care NPO and IVF hydration ID for continued antibiotics Dianostic laparoscopy, possible bowel ressection, possible ostomy, possible vaginal cuff repair Discussed with patient risks, benefits and alternatives of the aforementioned procedure, including but not limited to bleeding, infection, injury to adjacent structures, leak or injury, intraabdominal abscess, incisional hernia, need for further procedures, ; alternatives include antibiotics, delayed or no surgery - risks of this include failure of nonoperative therapy, perforation, sepsis, recurrence, . Patient desires to proceed with operation - will take to OR for above. Informed consent signed for same. Code(s): K66.1 - HEMOPERITONEUM (2) Pneumoperitoneum Code(s): K66.8 - OTHER SPECIFIED DISORDERS OF PERITONEUM (3) Abdominal pain in female patient Code(s): R10.9 - UNSPECIFIED ABDOMINAL PAIN (4) H/O total vaginal hysterectomy Code(s): Z90.710 - ACQUIRED ABSENCE OF BOTH CERVIX AND UTERUS
--- NOTE | 2018-09-16 15:49 | OP ---
Operative Note - Note: Operative Date: 09/16/18 Pre-Operative Diagnosis: increasing pneumoperitoneum and peritonitis post operatively Operation: diagnostic laparocospy, evacuation of pelvic hematomas (Janiya), open laparotomy primary repair of rectal perforation, abdominal washout (Giovanny), right ovarian cystotomy (Janis) Findings: anterior rectal perforation adjacent to the area of previous pelvic dissection, organized clots in the pelvis, large right ovarian cyst. Post-Operative Diagnosis: Other (Anterior rectal perforation and right ovarian cyst) Surgeon: Logan Joseph (assisted by Miguel Torres) Food Or Baggage Handling Rampman: Shani Guerrero (assisted by Krista Bueno) Anesthesiologist/ENDLESS STEAMER TENDER: Rachelle Spaulding Anesthesia: General Specimens Removed: right ovarian cyst wall Estimated Blood Loss (mls): 50 Drains & Tubes with Location: Joshua-Fisher size 10 flat pelvis to LLQ@skin, [place] Drains, Volume Out (mls): 525 (magaña) Fluid Volume Replaced (mls): 2,400 (crystalloid) Operative Report Dictated: Yes
[2018-09-16] MEDS ORDERED: fentaNYL CITRATE 250 MCG/5 ML VIAL ONE (16:22)
[2018-09-16] MEDS ORDERED: SUCCINYLCHOLINE CHLORIDE 200 MG/10 ML SYRINGE ONE (16:22)
[2018-09-16] MEDS ORDERED: ROCURONIUM BROMIDE 50 MG/5 ML SYRINGE ONE (16:23)
[2018-09-16] MEDS ORDERED: ETOMIDATE 20 MG/10 ML AMPUL IVPUSH ONE (16:23)
--- NOTE | 2018-09-16 16:24 | PN ---
Progress Note (short form) - Note Progress Note: Patient seen and evaluated. She's lying in bed c/o significant discomfort. PE : Chest : Decreased breathing sounds ABD : + generalized abdominal tenderness, + distention. Pelvis : Vagina : no bleeding, no leakage of fluid. A/P : Status post vaginal hysterectomy Pneumoperitoneum Consider examination of the vaginal cuff under anesthesia Discuss case with general surgeon. Problem List - Problems (1) Pelvic pain Code(s): R10.2 - PELVIC AND PERINEAL PAIN
[2018-09-16] MEDS ORDERED: CLINDAMYCIN 900 MG PREMIX BAG IVPB ONE (16:38)
[2018-09-16] MEDS ORDERED: CLINDAMYCIN PHOSPHATE 600 MG/4 ML VIAL ONE (16:55)
[2018-09-16] MEDS ORDERED: HYDROmorphone HCl 2 MG/ML VIAL ONE ×2 (17:51→18:44)
[2018-09-16] MEDS ORDERED: PHENYLEPHRINE HCL 10 MG/1 ML SINGLE DOSE VIAL ONE (18:45)
[2018-09-16] MEDS ORDERED: ONDANSETRON 4 MG/2 ML VIAL ONE (19:10)
[2018-09-16] MEDS ORDERED: NEOSTIGMINE METHYLSULFATE 0.5 MG/1 ML - 10 ML MDV ONE (19:18)
[2018-09-16] MEDS ORDERED: GLYCOPYRROLATE 0.2 MG/1 ML VIAL ONE (19:19)
[2018-09-16] MEDS ORDERED: LACTATED RINGERS SOLUTION 1,000 ML IV SCH ×2 (20:00→20:46)
[2018-09-16] MEDS ORDERED: ACETAMINOPHEN 1000 MG/100 ML VIAL (NON FORMULARY) IVPB PRN (20:05)
[2018-09-16] MEDS ORDERED: SUMAtriptan SUCCINATE 50 MG TABLET PO PRN (20:05)
[2018-09-16] MEDS ORDERED: HYDROmorphone HCl 2 MG/ML VIAL IVPB PRN (20:05)
[2018-09-16] MEDS ORDERED: SODIUM CHLORIDE 1,000 ML IV SCH (20:05)
[2018-09-16] MEDS: HYDROmorphone *PCA* 10MG/50ML DISP.SYRIN PCA SCH (20:53)
[2018-09-16 21:23] LABS: HEMATOCRIT 35.4 % (32.4-45.2); HEMOGLOBIN 11.8 GM/dL (10.7-15.3); MCH 31.3 pg (25.7-33.7); MCHC 33.5 g/dl (32.0-36.0); MEAN CELL VOLUME 93.6 fl (80-96); MEAN PLT VOLUME 8.1 fl (7.5-11.1); PLATELET COUNT 428 K/MM3 (134-434); RBC 3.78 M/mm3 (3.60-5.2); RDW 14.6 % (11.6-15.6); WHITE BLOOD COUNT 12.2 K/mm3 (4.0-10.0)
[2018-09-16] MEDS: CHLORHEXIDINE GLUCONATE 4% CLEANSER FOR DECOLONIZATION TP SCH (21:29)
[2018-09-16 21:52] LABS: BLOOD UREA NITROGEN 5.5 mg/dL (7-18); CALCIUM 7.3 mg/dL (8.5-10.1); POTASSIUM 3.4 mmol/L (3.5-5.1)
[2018-09-16 21:53] LABS: CREATININE 0.5 mg/dL (0.55-1.3)
[2018-09-16] MEDS ORDERED: CHLORHEXIDINE GLUCONATE 4% CLEANSER FOR DECOLONIZATION TP SCH (22:00)
[2018-09-16] MEDS ORDERED: MUPIROCIN 2% TOPICAL OINTMENT FOR DECOLONIZATION NS SCH (22:00)
[2018-09-17] MEDS ORDERED: LACTATED RINGERS SOLUTION 1,000 ML/1,000 ML INFUS.BAG IV STA (03:00)
[2018-09-17] MEDS: SIMETHICONE 80 MG TAB.CHEW (FP) PO SCH ×3 (05:29→21:34)
[2018-09-17 06:38] LABS: HEMATOCRIT 32.6 % (32.4-45.2); HEMOGLOBIN 11.1 GM/dL (10.7-15.3); MCH 31.5 pg (25.7-33.7); MEAN CELL VOLUME 92.8 fl (80-96); MEAN PLT VOLUME 8.1 fl (7.5-11.1); PLATELET COUNT 424 K/MM3 (134-434); RBC 3.51 M/mm3 (3.60-5.2); RDW 14.8 % (11.6-15.6); WHITE BLOOD COUNT 16.1 K/mm3 (4.0-10.0)
[2018-09-17] MEDS ORDERED: diazePAM CARPU-JECT 10 MG/2 ML DISP.SYRIN IVPUSH SCH (06:45)
[2018-09-17 07:18] LABS: BLOOD UREA NITROGEN 7.8 mg/dL (7-18); CALCIUM 7.3 mg/dL (8.5-10.1); CREATININE 0.6 mg/dL (0.55-1.3); MAGNESIUM 1.9 mg/dL (1.8-2.4); PHOSPHOROUS 2.4 mg/dL (2.5-4.9); POTASSIUM 3.8 mmol/L (3.5-5.1)
[2018-09-17] MEDS: ACETAMINOPHEN 1000 MG/100 ML VIAL (NON FORMULARY) IVPB SCH ×4 (07:21→23:58)
--- NOTE | 2018-09-17 07:31 | PN ---
Physical Exam: SUBJECTIVE: Pt taken for exploratory laparatomy yesterday given increasing pneumoperitoneum. Pt found to have perforated rectum and organized clots in pelvis. Repair of perforation occurred and ovarian cystotomy was also performed by CONCRETE FINISHER APPRENTICE during procedure. Pt POD#0 currently still under slight effects of anesthesia. Pt arousable, but reports she is tired. OBJECTIVE: Vital Signs Period Temp Pulse Resp BP Sys/Jeffery Pulse Ox Last 24 Hr 97.9 F-99.4 F 108-148 10-18 84-149/66-105 97-100 GENERAL: NAD, tired, but arousable, alert, and fully oriented HEENT:Nc/AT,TAMMIE, sclera anicteric, dry mucosa NECK: No JVD LUNGS: Diminished breath sounds bibasillarly, no wheezes, no crackles, no accessory muscle use. HEART: Tachycardic with regular rhythm, S1, S2 without murmur ABDOMEN: Soft, surgical incision C/D/I with jarod noted and gauze overlying, nondistended, tenderness noted near surgical site, hypoactive BS, no guarding. EXTREMITIES: 2+ distal pulses b/l, warm, well-perfused, no edema. PSYCH: Normal mood, normal affect. SKIN: Warm, dry, no rashes noted Laboratory Results 09/12/18 09/16/18 09/16/18 06:14 17:40 21:00 WBC 12.2 H RBC 3.78 Hgb 11.8 Hct 35.4 D MCV 93.6 MCH 31.3 MCHC 33.5 RDW 14.6 Plt Count 428 D MPV 8.1 Sodium Potassium Chloride Carbon Dioxide Anion Gap BUN Creatinine Est GFR (CKD-EPI)AfAm Est GFR (CKD-EPI)NonAf Random Glucose Calcium Phosphorus Magnesium Blood Type B POSITIVE B POSITIVE Antibody Screen Negative Negative Crossmatch See Detail See Detail 09/16/18 09/17/18 09/17/18 21:05 05:35 05:35 WBC 16.1 H RBC 3.51 L Hgb 11.1 Hct 32.6 MCV 92.8 MCH 31.5 MCHC 34.0 RDW 14.8 Plt Count 424 MPV 8.1 Sodium 140 138 Potassium 3.4 L 3.8 Chloride 104 104 Carbon Dioxide 27 26 Anion Gap 9 8 BUN 5.5 L 7.8 Creatinine 0.5 L 0.6 Est GFR (CKD-EPI)AfAm 134.52 126.69 Est GFR (CKD-EPI)NonAf 116.07 109.31 Random Glucose 107 H 101 Calcium 7.3 L 7.3 L Phosphorus 2.4 L Magnesium 1.9 Blood Type Antibody Screen Crossmatch Active Medications Generic Name Dose Route Start Last Admin Trade Name Freq PRN Reason Stop Dose Admin Acetaminophen 1,000 mg 09/17/18 06:45 09/17/18 07:21 Ofirmev Injection - IVPB 09/19/18 00:46 1,000 mg Q6H JUDY Administration Chlorhexidine Gluconate 1 applic 09/16/18 22:00 09/16/18 21:29 Hibiclens For Decolonization - TP 1 applic HS JUDY Administration Chlorhexidine Gluconate 1 applic 09/16/18 22:00 09/16/18 21:31 Hibiclens For Decolonization - TP Not Given HS JUDY Docusate Sodium 100 mg 09/17/18 10:00 Colace - PO DAILY JUDY Hydromorphone HCl 10 mg 09/16/18 20:00 09/16/18 20:53 Hydromorphone 10 Mg/50 Ml-Ns REGIONAL FACILITIES SPECIALIST 09/23/18 19:53 10 mg REGIONAL FACILITIES SPECIALIST JUDY Administration Protocol Hydromorphone HCl 1 mg 09/16/18 20:05 Dilaudid Vial - IVPB Q6H PRN PAIN LEVEL 7 - 10 Metronidazole 500 mg in 100 mls @ 100 mls/hr 09/17/18 02:00 09/17/18 01:30 Flagyl 500mg Premixed Ivpb - IVPB 100 mls/hr Q8H-IV JUDY Administration Levofloxacin 500 mg in 100 mls @ 100 mls/hr 09/17/18 10:00 Levaquin 500 Mg Premixed Ivpb - IVPB DAILY JUDY Protocol Famotidine/Sodium Chloride 20 mg in 50 mls @ 100 mls/hr 09/16/18 22:00 21:32 Pepcid 20 Mg Premixed Ivpb - IVPB 100 mls/hr BID JUDY Administration Lactated Ringer's 1,000 mls @ 200 mls/hr 09/16/18 20:46 09/16/18 21:28 Lactated Ringers Solution IV 200 mls/hr ASDIR JUDY Administration Mupirocin 1 applic 09/16/18 22:00 09/16/18 21:30 Bactroban Ointment (For Decolonization) - NS 09/18/18 21:59 1 applic BID JUDY Administration Ondansetron HCl 4 mg 09/16/18 20:05 Zofran Injection IVPUSH Q6H PRN NAUSEA Simethicone 80 mg 09/16/18 22:00 09/17/18 05:29 Mylicon - PO 80 mg TID JUDY Administration Sumatriptan Succinate 100 mg 09/16/18 20:05 Imitrex - PO DAILY PRN HEADACHE ASSESSMENT/PLAN: POD 5 Transvaginal hysterectomy; POD 0 ex-lap with rectal perforation repair Acute blood loss anemia (resolved) Uterine leiomyomas Sinus tachycardia --Maintain pain control s/p surgical procedure --REGIONAL FACILITIES SPECIALIST per anesthesia --IV Ofirmev on board PRN --Incentive spirometry to be encouraged --Blood loss resolved with uptrending H/H --Tachycardia likely 2/2 to pain and volume depletion; continue LR @200cc/hr and bolus PRN --Continue Levaquin 500mg qdaily --Continue Flagyl 500 q12h IVPB FEN: Fluids: LR@200cc/hr Electrolyte abnormalities: Hypophosphatemia; repleted Kphos IVPB considering NPO status Nutrition: NPO until otherwise directed by surgery PPX: DVT - SCDs only GI - Pepcid dispo: Continue ICU monitoring; pain control in acute perioperative period Case discussed with Dr. Shadia Cooper, DO - IM PGY-3 Visit type - Emergency Visit Emergency Visit: No - New Patient This patient is new to me today: No - Critical Care Critical Care patient: Yes Total Critical Care Time (in minutes): 35 Critical Care Statement: The care of this patient involved high complexity decision making to prevent further life threatening deterioration of the patient 's condition and/or to evaluate & treat vital organ system(s) failure or risk of failure.
[2018-09-17] MEDS ORDERED: POTASSIUM PHOSPHATE 30 MM in SODIUM CHLORIDE 250 ML IVPB ONE (07:32)
[2018-09-17] MEDS: DOCUSATE SODIUM 100 MG CAPSULE (FP) PO SCH (09:02)
[2018-09-17] MEDS: FAMOTIDINE 20 MG/50 ML IVPB 20 MG/50 ML MG IVPB SCH ×2 (09:05→21:34)
[2018-09-17] MEDS: MUPIROCIN 2% TOPICAL OINTMENT FOR DECOLONIZATION NS SCH ×2 (09:15→21:34)
--- NOTE | 2018-09-17 10:11 | PN ---
Teaching Attending Note Name of Resident: Dave Cooper ATTENDING PHYSICIAN STATEMENT I saw and evaluated the patient. I reviewed the resident's note and discussed the case with the resident. I agree with the resident's findings and plan as documented. SUBJECTIVE: Patient seen and examined in the ICU. Awake and alert. Events from yesterday noted. POD #1: Diagnostic laparocospy, evacuation of pelvic hematomas, open laparotomy primary repair of anterior rectal perforation, abdominal washout, right ovarian cystotomy. Appropriate poat-op abdominal discomfort. Breathing feels about the same. H & H stable. CXR: Significantly resolved Pneumoperitoneum Intake & Output 09/14/18 09/15/18 09/16/18 09/17/18 23:59 23:59 23:59 23:59 Intake Total 4245 5508 5267 2312.5 Output Total 4100 2240 2575 447 Balance 145 3268 2692 1865.5 Weight 152 lb 159 lb 9.6 oz 159 lb 9.6 oz 162 lb 9.6 oz Last Vital Signs Temp Pulse Resp BP Pulse Ox 99.2 F 118 H 15 112/73 98 09/17/18 07:00 09/17/18 09:00 09/17/18 09:00 09/17/18 09:00 09/17/18 08:25 Active Medications Acetaminophen (Ofirmev Injection -) 1,000 mg IVPB Q6H JUDY Stop: 09/19/18 00:46 Last Admin: 09/17/18 07:21 Dose: 1,000 mg Chlorhexidine Gluconate (Hibiclens For Decolonization -) 1 applic TP HS [facility] Last Admin: 09/16/18 21:29 Dose: 1 applic Chlorhexidine Gluconate (Hibiclens For Decolonization -) 1 applic TP HS [facility] Last Admin: 09/16/18 21:31 Dose: Not Given Docusate Sodium (Colace -) 100 mg PO DAILY [facility] Last Admin: 09/17/18 09:02 Dose: Not Given Hydromorphone HCl (Hydromorphone 10 Mg/50 Ml-Ns) 10 mg GANG RIDER GANG RIDER JUDY; Protocol Stop: 09/23/18 19:53 Last Admin: 09/16/18 20:53 Dose: 10 mg Hydromorphone HCl (Dilaudid Vial -) 1 mg IVPB Q6H PRN PRN Reason: PAIN LEVEL 7 - 10 Metronidazole (Flagyl 500mg Premixed Ivpb -) 500 mg in 100 mls @ 100 mls/hr IVPB Q8H-IV JUDY Last Admin: 09/17/18 09:05 Dose: 100 mls/hr Levofloxacin (Levaquin 500 Mg Premixed Ivpb -) 500 mg in 100 mls @ 100 mls/hr IVPB DAILY [facility]; Protocol Last Admin: 09/17/18 09:04 Dose: 100 mls/hr Famotidine/Sodium Chloride (Pepcid 20 Mg Premixed Ivpb -) 20 mg in 50 mls @ 100 mls/hr IVPB BID [facility] Last Admin: 09/17/18 09:05 Dose: 100 mls/hr Lactated Ringer's (Lactated Ringers Solution) 1,000 mls @ 200 mls/hr IV ASDIR [facility] Last Admin: 09/16/18 21:28 Dose: 200 mls/hr Mupirocin (Bactroban Ointment (For Decolonization) -) 1 applic NS BID [facility] Stop: 09/18/18 21:59 Last Admin: 09/17/18 09:15 Dose: 1 applic Ondansetron HCl (Zofran Injection) 4 mg IVPUSH Q6H PRN PRN Reason: NAUSEA Simethicone (Mylicon -) 80 mg PO TID [facility] Last Admin: 09/17/18 05:29 Dose: 80 mg Sumatriptan Succinate (Imitrex -) 100 mg PO DAILY PRN PRN Reason: HEADACHE Gen: Awake and alert, uncomfortable due to pain Heart: S1S2, regular Lung: decreased breath sounds at the bases with a few scattered rhonchi Abd: softly distended, diffuse tenderness to palpation, no guarding or rigidity Ext: no edema Laboratory Results - last 24 hr 09/12/18 09/16/18 09/16/18 06:14 17:40 21:00 WBC 12.2 H RBC 3.78 Hgb 11.8 Hct 35.4 D MCV 93.6 MCH 31.3 MCHC 33.5 RDW 14.6 Plt Count 428 D MPV 8.1 Sodium Potassium Chloride Carbon Dioxide Anion Gap BUN Creatinine Est GFR (CKD-EPI)AfAm Est GFR (CKD-EPI)NonAf Random Glucose Calcium Phosphorus Magnesium Blood Type B POSITIVE B POSITIVE Antibody Screen Negative Negative Crossmatch See Detail See Detail 09/16/18 09/17/18 09/17/18 21:05 05:35 05:35 WBC 16.1 H RBC 3.51 L Hgb 11.1 Hct 32.6 MCV 92.8 MCH 31.5 MCHC 34.0 RDW 14.8 Plt Count 424 MPV 8.1 Sodium 140 138 Potassium 3.4 L 3.8 Chloride 104 104 Carbon Dioxide 27 26 Anion Gap 9 8 BUN 5.5 L 7.8 Creatinine 0.5 L 0.6 Est GFR (CKD-EPI)AfAm 134.52 126.69 Est GFR (CKD-EPI)NonAf 116.07 109.31 Random Glucose 107 H 101 Calcium 7.3 L 7.3 L Phosphorus 2.4 L Magnesium 1.9 Blood Type Antibody Screen Crossmatch ASSESSMENT AND PLAN: POD #5: Transvaginal Hysterectomy with surgical bleed Increasing Pneumoperitoneum on imaging Uterine Leiomyomas Acute Blood Loss Anemia - Follow abdominal exam - Normal transfusion thresholds - Pain control - Monitor H/H - ELECTORATE OFFICER f/u - IVF - PO as tolerated - Mechanical VTE prophylaxis - Encourage Incentive Spirometry - OOB to chair - Requies ICU monitoring due to tenuous status Dr Reno Critical care time spent in reviewing chart, evaluating patient and formulating plan - 36 minutes.
--- NOTE | 2018-09-17 10:34 | PN ---
Progress Note (short form) - Note Progress Note: Anesthesia postop note POD#1, AIR CARGO GROUND OPERATIONS SUPERVISOR round S/P diagnostic laparocospy, evacuation of pelvic hematomas, open laparotomy primary repair of rectal perforation, abdominal washout , right ovarian cystectomy under GA and AIR CARGO GROUND OPERATIONS SUPERVISOR post op. Pat seen and examinded. AAOX3. VSS. Pain score 8/10. Alleviates after AIR CARGO GROUND OPERATIONS SUPERVISOR and she falls asleep. Added Tylenol iv around the clock. Also hydromorphone for break through pain. Will follow up.
--- NOTE | 2018-09-17 12:46 | PN ---
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 Called postop in consultation POD# s/p total vaginal hysterectomy. She had a ct scan showing hemo and pneumoperitonuim. She has been hemodynamically stable since surgery. - Current Medication List Current Medications: Active Medications Acetaminophen (Ofirmev Injection -) 1,000 mg IVPB Q6H JUDY Stop: 09/19/18 00:46 Last Admin: 09/17/18 07:21 Dose: 1,000 mg Chlorhexidine Gluconate (Hibiclens For Decolonization -) 1 applic TP HS [facility]Y Last Admin: 09/16/18 21:29 Dose: 1 applic Docusate Sodium (Colace -) 100 mg PO DAILY [facility] Last Admin: 09/17/18 09:02 Dose: Not Given Hydromorphone HCl (Hydromorphone 10 Mg/50 Ml-Ns) 10 mg WELDER/INSTALLER WELDER/INSTALLER JUDY; Protocol Stop: 09/23/18 19:53 Last Admin: 09/16/18 20:53 Dose: 10 mg Hydromorphone HCl (Dilaudid Vial -) 1 mg IVPB Q6H PRN PRN Reason: PAIN LEVEL 7 - 10 Metronidazole (Flagyl 500mg Premixed Ivpb -) 500 mg in 100 mls @ 100 mls/hr IVPB Q8H-IV JUDY Last Admin: 09/17/18 09:05 Dose: 100 mls/hr Levofloxacin (Levaquin 500 Mg Premixed Ivpb -) 500 mg in 100 mls @ 100 mls/hr IVPB DAILY [facility]Y; Protocol Last Admin: 09/17/18 09:04 Dose: 100 mls/hr Famotidine/Sodium Chloride (Pepcid 20 Mg Premixed Ivpb -) 20 mg in 50 mls @ 100 mls/hr IVPB BID JUDY Last Admin: 09/17/18 09:05 Dose: 100 mls/hr Lactated Ringer's (Lactated Ringers Solution) 1,000 mls @ 200 mls/hr IV ASDIR [facility] Last Admin: 09/16/18 21:28 Dose: 200 mls/hr Mupirocin (Bactroban Ointment (For Decolonization) -) 1 applic NS BID JUDY Stop: 09/18/18 21:59 Last Admin: 09/17/18 09:15 Dose: 1 applic Ondansetron HCl (Zofran Injection) 4 mg IVPUSH Q6H PRN PRN Reason: NAUSEA Simethicone (Mylicon -) 80 mg PO TID [facility] Last Admin: 09/17/18 05:29 Dose: 80 mg Sumatriptan Succinate (Imitrex -) 100 mg PO DAILY PRN PRN Reason: HEADACHE - Objective Vital Signs: Vital Signs Temperature 98.2 F 09/17/18 12:35 Pulse Rate 128 H 09/17/18 12:35 Respiratory Rate 16 09/17/18 12:35 Blood Pressure 104/71 09/17/18 12:35 O2 Sat by Pulse Oximetry (%) 98 09/17/18 08:25 Vital Signs Period Temp Pulse Resp BP Sys/Jeffery Pulse Ox Last 24 Hr 98.2 F-99 F 106-128 12-24 104-139/62-92 100-100 Intake & Output 09/17/18 09/18/18 09/18/18 23:59 07:59 15:59 Intake Total 200 400 Output Total 1300 Balance 200 -900 Weight 172 lb 12.8 oz Intake: IV 300 Lactated Ringers Solution 300 1,000 ml @ 100 mls/hr IV ASDIR [facility] Rx#: [id number] IVPB 200 100 Output: Urine 1300 [place] 1300 Other: Voiding Method Indwelling Catheter Indwelling Catheter Weight Measurement Method Built in [facility] Constitutional: Yes: Well Nourished, No Distress, Calm Eyes: Yes: Conjunctiva Clear, EOM Intact HENT: Yes: Atraumatic, Normocephalic Neck: Yes: Supple, Trachea Midline Cardiovascular: Yes: Regular Rate and Rhythm, S1, S2 Respiratory: Yes: Regular, CTA Bilaterally Gastrointestinal: Yes: Soft, Distention, Hypoactive Bowel Sounds, Tenderness ( incsional). No: Tenderness, Epigastrium, Tenderness, Rebound, Vomiting ...Rectal Exam: Yes: Deferred Genitourinary: Yes: [place] Present. No: CVA Tenderness - Left, CVA Tenderness - Right Musculoskeletal: No: Joint Stiffness, Joint Swelling Extremities: No: Cool, Cyanosis Edema: No Peripheral Pulses WNL: Yes Peripheral Pulses: Left Radial: 2+, Right Radial: 2+, Left Doralis Pedis: 2+, Right Dorsalis Pedis: 2+, Left Femoral: 2+, Right Femoral: 2+ Wound/Incision: Yes: Clean/Dry, Well Approximated, [place] Intact, Dressing Dry and Intact Neurological: Yes: Alert, Oriented Psychiatric: Yes: Alert, Oriented Labs: CBC, BMP 09/17/18 05:35 09/17/18 05:35 INR, PTT INR 1.23 (0.83-1.09) H 09/13/18 12:36 Problem List - Problems (1) Hemoperitoneum Assessment/Plan: 48yo female with less then 24hrs post of from vaginal hysterectomy pneumoperitoniem and even a small amount of hemoperitoneium is not concerning post operative day one. POD#4 s/p total vaginal hysterectomy POD#1 s/o Diagnostic laparoscopy, repair of rectal perforation, right ovarian cystotomy ICU care NPO and IVF hydration ID for continued antibiotics trend labs continue WELDER/INSTALLER OOB and ambulate d/C mag[place] This patient is critically ill. Time spent reviewing chart, examining patient, talking with providers and/or family and documentation is 35 minutes. Code(s): K66.1 - HEMOPERITONEUM (2) Pneumoperitoneum Code(s): K66.8 - OTHER SPECIFIED DISORDERS OF PERITONEUM (3) Abdominal pain in female patient Code(s): R10.9 - UNSPECIFIED ABDOMINAL PAIN (4) H/O total vaginal hysterectomy Code(s): Z90.710 - ACQUIRED ABSENCE OF BOTH CERVIX AND UTERUS
[2018-09-17] MEDS: HYDROmorphone *PCA* 10MG/50ML DISP.SYRIN PCA SCH (15:47)
[2018-09-17] MEDS ORDERED: LACTATED RINGERS SOLUTION 1,000 ML IV SCH (16:10)
--- NOTE | 2018-09-17 17:43 | EKG ---
Test Reason : Blood Pressure : / mmHG Vent. Rate : 128 BPM Atrial Rate : 128 BPM P-R Int : 128 ms QRS Dur : 084 ms QT Int : 290 ms P-R-T Axes : 070 074 027 degrees QTc Int : 423 ms POOR DATA QUALITY, INTERPRETATION MAY BE ADVERSELY AFFECTED SINUS TACHYCARDIA OTHERWISE NORMAL ECG WHEN COMPARED WITH ECG OF 05-SEP-2018 12:53, VENT. RATE HAS INCREASED BY 53 BPM NONSPECIFIC T WAVE ABNORMALITY NOW EVIDENT IN INFERIOR LEADS T WAVE AMPLITUDE HAS DECREASED IN ANTEROLATERAL LEADS Confirmed by MIKE FOSTER MD [id number]) on 09/17/2018 5:43:14 PM Referred By: Confirmed By:MIKE FOSTER MD
[2018-09-17] MEDS: ONDANSETRON 4 MG/2 ML VIAL IVPUSH PRN (17:52)
--- NOTE | 2018-09-17 18:41 | PN ---
Progress Note, Physician History of Present Illness: Patient seen and evaluated; she's in some discomfort but has greatly improved from before. She's OOB to chair and has tried ambulating. She's status post diagnostic laparoscopy, pelvic hematoma evacuation, laparotomy , ovarian cystectomy and rectal perforation repair. - Current Medication List Current Medications: Active Medications Acetaminophen (Ofirmev Injection -) 1,000 mg IVPB Q6H JUDY Stop: 09/19/18 00:46 Last Admin: 09/17/18 13:52 Dose: 1,000 mg Chlorhexidine Gluconate (Hibiclens For Decolonization -) 1 applic TP HS JUDY Last Admin: 09/16/18 21:29 Dose: 1 applic Docusate Sodium (Colace -) 100 mg PO DAILY [facility] Last Admin: 09/17/18 09:02 Dose: Not Given Hydromorphone HCl (Hydromorphone 10 Mg/50 Ml-Ns) 10 mg ON AIR DIRECTOR ON AIR DIRECTOR JUDY; Protocol Stop: 09/23/18 19:53 Last Admin: 09/17/18 15:47 Dose: 10 mg Hydromorphone HCl (Dilaudid Vial -) 1 mg IVPB Q6H PRN PRN Reason: PAIN LEVEL 7 - 10 Metronidazole (Flagyl 500mg Premixed Ivpb -) 500 mg in 100 mls @ 100 mls/hr IVPB Q8H-IV JUDY Last Admin: 09/17/18 17:26 Dose: 100 mls/hr Levofloxacin (Levaquin 500 Mg Premixed Ivpb -) 500 mg in 100 mls @ 100 mls/hr IVPB DAILY [facility], [facility]; Protocol Last Admin: 09/17/18 09:04 Dose: 100 mls/hr Famotidine/Sodium Chloride (Pepcid 20 Mg Premixed Ivpb -) 20 mg in 50 mls @ 100 mls/hr IVPB BID [facility], [facility] Last Admin: 09/17/18 09:05 Dose: 100 mls/hr Lactated Ringer's (Lactated Ringers Solution) 1,000 mls @ 100 mls/hr IV ASDIR JUDY Last Admin: 09/17/18 16:11 Dose: 100 mls/hr Mupirocin (Bactroban Ointment (For Decolonization) -) 1 applic NS BID [facility] Stop: 09/18/18 21:59 Last Admin: 09/17/18 09:15 Dose: 1 applic Ondansetron HCl (Zofran Injection) 4 mg IVPUSH Q6H PRN PRN Reason: NAUSEA Last Admin: 09/17/18 17:52 Dose: 4 mg Simethicone (Mylicon -) 80 mg PO TID JUDY Last Admin: 09/17/18 13:52 Dose: 80 mg Sumatriptan Succinate (Imitrex -) 100 mg PO DAILY PRN PRN Reason: HEADACHE - Objective Vital Signs: Vital Signs Temperature 98.2 F 09/17/18 12:35 Pulse Rate 106 H 09/17/18 16:00 Respiratory Rate 18 09/17/18 16:00 Blood Pressure 120/66 09/17/18 16:00 O2 Sat by Pulse Oximetry (%) 98 09/17/18 08:25 Constitutional: Yes: Moderate Distress HENT: Yes: Normocephalic Neck: Yes: Supple. No: Tenderness Cardiovascular: Yes: Other (Tachycardic) Respiratory: Yes: Diminished Gastrointestinal: Yes: Hypoactive Bowel Sounds, Other (Incisional pain) Genitourinary: Yes: Lerma Present. No: Vaginal Bleeding Wound/Incision: Yes: Dressing Dry and Intact Neurological: Yes: Alert, Oriented ...Motor Strength: WNL Psychiatric: Yes: Alert, Oriented Labs: CBC, BMP 09/17/18 05:35 09/17/18 05:35 INR, PTT INR 1.23 (0.83-1.09) H 09/13/18 12:36 Problem List - Problems (1) Pelvic pain Code(s): R10.2 - PELVIC AND PERINEAL PAIN Assessment/Plan Status post TVH Status post diagnostic laparotomy / Laparotomy / Left Ovarian cystectomy / Repair of rectal perforation Continue management as per ICU
[2018-09-17] MEDS ORDERED: PT OWN MED DRAWER 7, Y5N ONE (21:32)
[2018-09-17] MEDS: CHLORHEXIDINE GLUCONATE 4% CLEANSER FOR DECOLONIZATION TP SCH (21:34)
[2018-09-18] MEDS: ONDANSETRON 4 MG/2 ML VIAL IVPUSH PRN ×2 (02:22→10:39)
[2018-09-18] MEDS ORDERED: LORazepam 2 MG/ML SDV VIAL IVPUSH ONE (05:04)
[2018-09-18] MEDS: SIMETHICONE 80 MG TAB.CHEW (FP) PO SCH ×3 (05:18→21:22)
[2018-09-18] MEDS: ACETAMINOPHEN 1000 MG/100 ML VIAL (NON FORMULARY) IVPB SCH ×3 (07:11→20:40)
[2018-09-18 08:24] LABS: HEMATOCRIT 28.3 % (32.4-45.2); HEMOGLOBIN 9.5 GM/dL (10.7-15.3); MCH 31.1 pg (25.7-33.7); MCHC 33.5 g/dl (32.0-36.0); MEAN CELL VOLUME 92.9 fl (80-96); MEAN PLT VOLUME 7.5 fl (7.5-11.1); PLATELET COUNT 427 K/MM3 (134-434); RBC 3.05 M/mm3 (3.60-5.2); RDW 14.9 % (11.6-15.6); WHITE BLOOD COUNT 18.9 K/mm3 (4.0-10.0)
[2018-09-18 08:40] LABS: BLOOD UREA NITROGEN 5.8 mg/dL (7-18); CALCIUM 7.5 mg/dL (8.5-10.1); CREATININE 0.3 mg/dL (0.55-1.3); POTASSIUM 3.1 mmol/L (3.5-5.1)
[2018-09-18] MEDS ORDERED: PANTOPRAZOLE SODIUM 40 MG VIAL IVPUSH ONE (08:45)
[2018-09-18] MEDS ORDERED: POTASSIUM PHOSPHATE 30 MM in SODIUM CHLORIDE 500 ML IVPB ONE (09:00)
[2018-09-18] MEDS ORDERED: KCL 10 MEQ IVPB 10 MEQ/100 ML INFUS.BAG IVPB SCH (09:15)
[2018-09-18] MEDS: FAMOTIDINE 20 MG/50 ML IVPB 20 MG/50 ML MG IVPB SCH ×2 (09:17→21:24)
[2018-09-18] MEDS: MUPIROCIN 2% TOPICAL OINTMENT FOR DECOLONIZATION NS SCH (09:18)
[2018-09-18] MEDS: DOCUSATE SODIUM 100 MG CAPSULE (FP) PO SCH (09:19)
--- NOTE | 2018-09-18 09:44 | PN ---
Progress Note (short form) - Note Progress Note: ID CONSULT DICTATED POST OP [id number] RECTAL PERFORATION REPAIR/ EVACUATION OF HEMATOMA/ ABDO WASHOUT S/P HYSTERECTOMY LEUKOCYTOSIS UTI PCN ALLERGY OBTAIN BC CONTINUE LEVAQUIN/ FLAGYL VANCOMYCIN 1GM IVPB Q12H
[2018-09-18] MEDS ORDERED: ACETAMINOPHEN 1000 MG/100 ML VIAL (NON FORMULARY) IVPB ONE (10:00)
[2018-09-18] MEDS: VANCOMYCIN 1 GRAM (PRE-DOCKED) 1,000 MG/250 ML BAG IVPB SCH ×3 (10:01→21:10)
--- NOTE | 2018-09-18 11:24 | PN ---
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 Called postop in consultation POD#3 s/p total vaginal hysterectomy. She had a ct scan showing hemo and pneumoperitonuim. Stable since surgery. She feels better but complains of nausea. - Current Medication List Current Medications: Active Medications Acetaminophen (Ofirmev Injection -) 1,000 mg IVPB Q6H JUDY Stop: 09/19/18 00:46 Last Admin: 09/18/18 07:11 Dose: 1,000 mg Chlorhexidine Gluconate (Hibiclens For Decolonization -) 1 applic TP HS JUDY Last Admin: 09/17/18 21:34 Dose: 1 applic Docusate Sodium (Colace -) 100 mg PO DAILY JUDY Last Admin: 09/18/18 09:19 Dose: Not Given Hydromorphone HCl (Hydromorphone 10 Mg/50 Ml-Ns) 10 mg DIRECTOR OF CAPITAL GIVING DIRECTOR OF CAPITAL GIVING JUDY; Protocol Stop: 09/23/18 19:53 Last Admin: 09/17/18 15:47 Dose: 10 mg Hydromorphone HCl (Dilaudid Vial -) 1 mg IVPB Q6H PRN PRN Reason: PAIN LEVEL 7 - 10 Metronidazole (Flagyl 500mg Premixed Ivpb -) 500 mg in 100 mls @ 100 mls/hr IVPB Q8H-IV JUDY Last Admin: 09/18/18 09:17 Dose: 100 mls/hr Levofloxacin (Levaquin 500 Mg Premixed Ivpb -) 500 mg in 100 mls @ 100 mls/hr IVPB DAILY JUDY; Protocol Last Admin: 09/18/18 09:18 Dose: 100 mls/hr Famotidine/Sodium Chloride (Pepcid 20 Mg Premixed Ivpb -) 20 mg in 50 mls @ 100 mls/hr IVPB BID JUDY Last Admin: 09/18/18 09:17 Dose: 100 mls/hr Potassium Phosphate 30 mm/ (Sodium Chloride) 510 mls @ 63.75 mls/hr IVPB ONCE ONE Stop: 09/18/18 16:59 Last Admin: 09/18/18 09:14 Dose: 63.75 mls/hr Vancomycin HCl (Vancomycin (Pre-Docked)) 1,000 mg in 250 mls @ 166.667 mls/hr IVPB BID [facility]; Protocol Last Admin: 09/18/18 10:01 Dose: Not Given Mupirocin (Bactroban Ointment (For Decolonization) -) 1 applic NS BID [facility] Stop: 09/18/18 21:59 Last Admin: 09/18/18 09:18 Dose: 1 applic Ondansetron HCl (Zofran Injection) 4 mg IVPUSH Q8H [facility] Simethicone (Mylicon -) 80 mg PO TID [facility] Last Admin: 09/18/18 05:18 Dose: 80 mg Sumatriptan Succinate (Imitrex -) 100 mg PO DAILY PRN PRN Reason: HEADACHE - Objective Vital Signs: Vital Signs Temperature 99 F 09/18/18 07:54 Pulse Rate 113 H 09/18/18 09:00 Respiratory Rate 24 H 09/18/18 09:00 Blood Pressure 137/92 09/18/18 09:00 O2 Sat by Pulse Oximetry (%) 100 09/17/18 22:00 Vital Signs Period Temp Pulse Resp BP Sys/Jeffery Pulse Ox Last 24 Hr 98.2 F-99 F 106-128 12-24 104-139/62-92 100-100 Intake & Output 09/17/18 09/18/18 09/18/18 23:59 07:59 15:59 Intake Total 200 400 Output Total 1300 Balance 200 -900 Weight 172 lb 12.8 oz Intake: IV 300 Lactated Ringers Solution 300 1,000 ml @ 100 mls/hr IV ASDIR [facility] Rx#: [id number] IVPB 200 100 Output: Urine 1300 Lerma 1300 Other: Voiding Method Indwelling Catheter Indwelling Catheter Weight Measurement Method Built in [facility] Constitutional: Yes: Well Nourished, No Distress, Calm Eyes: Yes: Conjunctiva Clear, EOM Intact HENT: Yes: Atraumatic, Normocephalic Neck: Yes: Supple, Trachea Midline Cardiovascular: Yes: Regular Rate and Rhythm, S1, S2 Respiratory: Yes: Regular, CTA Bilaterally Gastrointestinal: Yes: Normal Bowel Sounds, Soft, Distention, Hypoactive Bowel Sounds. No: Vomiting ...Rectal Exam: Yes: Deferred Genitourinary: No: CVA Tenderness - Left, CVA Tenderness - Right Breast(s): No: Dimpling, Mass Extremities: No: Cool, Cyanosis Edema: No Peripheral Pulses WNL: Yes Peripheral Pulses: Left Radial: 2+, Right Radial: 2+, Left Doralis Pedis: 2+, Right Dorsalis Pedis: 2+, Left Femoral: 2+, Right Femoral: 2+ Integumentary: No: Jaundice, Rash, Tattoos Wound/Incision: Yes: Clean/Dry, Well Approximated, Gomez Intact Neurological: Yes: Alert, Oriented Psychiatric: Yes: Alert, Oriented Labs: CBC, BMP 09/18/18 07:45 09/18/18 07:45 INR, PTT INR 1.23 (0.83-1.09) H 09/13/18 12:36 Problem List - Problems (1) Hemoperitoneum Assessment/Plan: 48yo female with less then 24hrs post of from vaginal hysterectomy pneumoperitoniem and even a small amount of hemoperitoneium is not concerning post operative day one. POD#4 s/p total vaginal hysterectomy POD#2 s/o Diagnostic laparoscopy, repair of rectal perforation, right ovarian cystotomy ICU care NPO and IVF hydration ID for continued antibiotics trend labs continue DIRECTOR OF CAPITAL GIVING OOB and ambulate This patient is critically ill. Time spent reviewing chart, examining patient, talking with providers and/or family and documentation is 35 minutes. Code(s): K66.1 - HEMOPERITONEUM (2) Pneumoperitoneum Code(s): K66.8 - OTHER SPECIFIED DISORDERS OF PERITONEUM (3) Abdominal pain in female patient Code(s): R10.9 - UNSPECIFIED ABDOMINAL PAIN (4) H/O total vaginal hysterectomy Code(s): Z90.710 - ACQUIRED ABSENCE OF BOTH CERVIX AND UTERUS
--- NOTE | 2018-09-18 11:39 | PN ---
Teaching Attending Note Name of Resident: Dave Reyes ATTENDING PHYSICIAN STATEMENT I saw and evaluated the patient. I reviewed the resident's note and discussed the case with the resident. I agree with the resident's findings and plan as documented. SUBJECTIVE: Patient seen and examined in the ICU. Awake and alert. Events from yesterday noted. POD #2: Diagnostic laparocospy, evacuation of pelvic hematomas, open laparotomy primary repair of anterior rectal perforation, abdominal washout, right ovarian cystotomy. Post-op abdominal discomfort. SOB with movement related to abdominal process. CXR: Significantly resolved Pneumoperitoneum Intake & Output 09/15/18 09/16/18 09/17/18 09/18/18 23:59 23:59 23:59 23:59 Intake Total 5508 5267 4812.5 400 Output Total 2240 2575 822 1300 Balance 3268 2692 3990.5 -900 Weight 159 lb 9.6 oz 159 lb 9.6 oz 162 lb 9.6 oz 172 lb 12.8 oz Last Vital Signs Temp Pulse Resp BP Pulse Ox 99 F 113 H 24 H 137/92 100 09/18/18 07:54 09/18/18 09:00 09/18/18 09:00 09/18/18 09:00 09/17/18 22:00 Active Medications Acetaminophen (Ofirmev Injection -) 1,000 mg IVPB Q6H JUDY Stop: 09/19/18 00:46 Last Admin: 09/18/18 07:11 Dose: 1,000 mg Chlorhexidine Gluconate (Hibiclens For Decolonization -) 1 applic TP HS JUDY Last Admin: 09/17/18 21:34 Dose: 1 applic Docusate Sodium (Colace -) 100 mg PO DAILY JUDY Last Admin: 09/18/18 09:19 Dose: Not Given Hydromorphone HCl (Hydromorphone 10 Mg/50 Ml-Ns) 10 mg CHILD WELFARE WORKER CHILD WELFARE WORKER JUDY; Protocol Stop: 09/23/18 19:53 Last Admin: 09/17/18 15:47 Dose: 10 mg Hydromorphone HCl (Dilaudid Vial -) 1 mg IVPB Q6H PRN PRN Reason: PAIN LEVEL 7 - 10 Metronidazole (Flagyl 500mg Premixed Ivpb -) 500 mg in 100 mls @ 100 mls/hr IVPB Q8H-IV JUDY Last Admin: 09/18/18 09:17 Dose: 100 mls/hr Levofloxacin (Levaquin 500 Mg Premixed Ivpb -) 500 mg in 100 mls @ 100 mls/hr IVPB DAILY [facility]; Protocol Last Admin: 09/18/18 09:18 Dose: 100 mls/hr Famotidine/Sodium Chloride (Pepcid 20 Mg Premixed Ivpb -) 20 mg in 50 mls @ 100 mls/hr IVPB BID [facility] Last Admin: 09/18/18 09:17 Dose: 100 mls/hr Potassium Phosphate 30 mm/ (Sodium Chloride) 510 mls @ 63.75 mls/hr IVPB ONCE ONE Stop: 09/18/18 16:59 Last Admin: 09/18/18 09:14 Dose: 63.75 mls/hr Vancomycin HCl (Vancomycin (Pre-Docked)) 1,000 mg in 250 mls @ 166.667 mls/hr IVPB BID [facility]; Protocol Last Admin: 09/18/18 10:01 Dose: Not Given Mupirocin (Bactroban Ointment (For Decolonization) -) 1 applic NS BID [facility] Stop: 09/18/18 21:59 Last Admin: 09/18/18 09:18 Dose: 1 applic Ondansetron HCl (Zofran Injection) 4 mg IVPUSH Q8H [facility] Simethicone (Mylicon -) 80 mg PO TID [facility] Last Admin: 09/18/18 05:18 Dose: 80 mg Sumatriptan Succinate (Imitrex -) 100 mg PO DAILY PRN PRN Reason: HEADACHE Gen: Awake and alert, uncomfortable due to pain Heart: S1S2, regular Lung: decreased breath sounds at the bases with a few scattered rhonchi Abd: softly distended, diffuse tenderness to palpation, no guarding or rigidity Ext: no edema Laboratory Results - last 24 hr 09/18/18 09/18/18 07:45 07:45 WBC 18.9 H RBC 3.05 L Hgb 9.5 L Hct 28.3 L MCV 92.9 MCH 31.1 MCHC 33.5 RDW 14.9 Plt Count 427 MPV 7.5 Sodium 137 Potassium 3.1 L Chloride 100 Carbon Dioxide 29 Anion Gap 8 BUN 5.8 L Creatinine 0.3 L Est GFR (CKD-EPI)AfAm 159.14 Est GFR (CKD-EPI)NonAf 137.31 Random Glucose 75 Calcium 7.5 L ASSESSMENT AND PLAN: POD #6 Transvaginal Hysterectomy with surgical bleed POD #2: Diagnostic laparocospy, evacuation of pelvic hematomas, open laparotomy primary repair of anterior rectal perforation, abdominal washout, right ovarian cystotomy. Uterine Leiomyomas Acute Blood Loss Anemia - Follow abdominal exam - Normal transfusion thresholds - Pain control - Monitor H/H - SUCTION PLATE ROLLER HAND f/u - IVF - PO when cleared by Surgery - Mechanical VTE prophylaxis - Encourage Incentive Spirometry - OOB to chair - Requires ICU monitoring due to overall tenuous status Dr Reno Critical care time spent in reviewing chart, evaluating patient and formulating plan - 36 minutes.
[2018-09-18] MEDS: ONDANSETRON 4 MG/2 ML VIAL IVPUSH SCH ×2 (13:06→20:41)
--- NOTE | 2018-09-18 14:24 | CONS ---
INFECTIOUS DISEASE CONSULTATION DATE OF CONSULTATION: DATE OF DICTATION: 09/18/2018 HISTORY: The patient is a 48-year-old female evaluated for leukocytosis. The patient was admitted to the hospital on September 11, 2018 for an elective vaginal hysterectomy secondary to leiomyoma. She underwent the surgery. Her postoperative course was complicated by worsening shortness of breath, pleuritic-type chest pain, and anemia. CAT scan revealed a pneumoperitoneum. The patient returned to the operating room on September 16, 2018 for a laparoscopy, evacuation of pelvic hematoma, and repair of rectal perforation with abdominal washout. Her postoperative course has been complicated by elevated white blood cell count and low-grade fever. She was empirically treated with Levaquin and Flagyl. At the present time, she complains of abdominal distention and pain with chest pain on deep inspiration. Urine culture is growing an enterococcus species. PAST MEDICAL HISTORY: Positive for endometriosis, leiomyoma, migraines. PAST SURGICAL HISTORY: Status post cholecystectomy. ALLERGIES: PENICILLIN. Patient reports tongue swelling with PENICILLIN. MEDICATIONS: Include Tylenol, Benadryl, metronidazole, hydromorphone, Levaquin, Protonix, Pepcid. SOCIAL HISTORY: She lives at home in the community with her significant other. Nonsmoker. Occasional ETOH. SYSTEMS REVIEW: Neurologic: No loss of consciousness, seizure activity, focal weakness. Cardiac: Negative chest pain or palpitations. Respiratory: Negative cough or sputum production. Gastrointestinal: As per HPI. Genitourinary: As per HPI. LABORATORY DATA: White count 18.9, hematocrit 28.3, platelets 427, creatinine 0.3. Urinalysis: White cells 110. Urine culture growing enterococcus species. Chest x-ray: Left base atelectasis versus infiltrate. PHYSICAL EXAMINATION: General: She is awake, alert. Supine in bed complaining of pleuritic-type chest pain with deep breath. Vital Signs: Temperature 99, blood pressure 139/85, pulse 120 regular, respirations 22 per minute. HEENT: Sclerae anicteric. Heart: Sounds tachycardic. S1, S2. Lungs: Clear. Diminished breath sounds at the bases bilaterally. Abdomen: Distended, tympanitic. Mild, diffuse tenderness. Surgical wounds with dressings in place. Extremities: Negative for edema. Negative Homans sign. IMPRESSION: 1. Postoperative day number 2 repair of rectal perforation, evacuation of hematoma, and abdominal washout. 2. Status post vaginal hysterectomy. 3. Leukocytosis. 4. Urinary tract infection. 5. History of PENICILLIN allergy. PLAN: Obtain blood cultures. Continue empiric antibiotic coverage of GI and pathogens with Levaquin and Flagyl. We will add vancomycin for additional coverage including coverage of urine isolet. Follow up CBC. We will follow. Thank you for the kind referral. KAREN QUESADA M.D. [id number]
--- NOTE | 2018-09-18 15:40 | PN ---
Physical Exam: SUBJECTIVE: Patient seen and examined at the bedside. Still complained of abdominal pain and nausea. Unable to move much because of pain. No passage of flatus since laparotomy. Denied cp, sob, dizziness, lightheadedness, numbness, tingling. OBJECTIVE: Vital Signs Period Temp Pulse Resp BP Sys/Jeffery Pulse Ox Last 24 Hr 98.4 F-99 F 106-126 12-24 109-139/62-92 100-100 GENERAL: The patient is awake, alert, and fully oriented, in moderate distress. HEAD: Normal with no signs of trauma. EYES: PERRL, extraocular movements intact, sclera anicteric, conjunctiva clear. No ptosis. NECK: Trachea midline, full range of motion, supple. LUNGS: Breath sounds equal, clear to auscultation bilaterally, no wheezes, no crackles, no accessory muscle use. HEART: Regular rate and rhythm, S1, S2 without murmur, rub or gallop. ABDOMEN: Tender abdomen diffusely, guarding, mildly distended. No masses palpated. Dressing in place, clean and dry. EXTREMITIES: 2+ pulses, warm, well-perfused, no edema. NEUROLOGICAL: Cranial nerves II through XII grossly intact. Normal speech. Muscle strength decreased due to weakness. PSYCH: Normal mood, normal affect. SKIN: Warm, dry, normal turgor, no rashes or lesions noted. Laboratory Results - last 24 hr 09/18/18 09/18/18 07:45 07:45 WBC 18.9 H RBC 3.05 L Hgb 9.5 L Hct 28.3 L MCV 92.9 MCH 31.1 MCHC 33.5 RDW 14.9 Plt Count 427 MPV 7.5 Sodium 137 Potassium 3.1 L Chloride 100 Carbon Dioxide 29 Anion Gap 8 BUN 5.8 L Creatinine 0.3 L Est GFR (CKD-EPI)AfAm 159.14 Est GFR (CKD-EPI)NonAf 137.31 Random Glucose 75 Calcium 7.5 L Active Medications Generic Name Dose Route Start Last Admin Trade Name Freq PRN Reason Stop Dose Admin Acetaminophen 1,000 mg 09/17/18 06:45 09/18/18 13:05 Ofirmev Injection - IVPB 09/19/18 00:46 1,000 mg Q6H JUDY Administration Chlorhexidine Gluconate 1 applic 09/16/18 22:00 09/17/18 21:34 Hibiclens For Decolonization - TP 1 applic HS JUDY Administration Docusate Sodium 100 mg 09/17/18 10:00 09/18/18 09:19 Colace - PO Not Given DAILY JUDY Hydromorphone HCl 10 mg 09/16/18 20:00 09/17/18 15:47 Hydromorphone 10 Mg/50 Ml-Ns OFFICE MACHINE REPAIR SHOP SUPERVISOR 09/23/18 19:53 10 mg OFFICE MACHINE REPAIR SHOP SUPERVISOR JUDY Administration Protocol Hydromorphone HCl 1 mg 09/16/18 20:05 Dilaudid Vial - IVPB Q6H PRN PAIN LEVEL 7 - 10 Metronidazole 500 mg in 100 mls @ 100 mls/hr 09/17/18 02:00 09/18/18 09:17 Flagyl 500mg Premixed Ivpb - IVPB 100 mls/hr Q8H-IV JUDY Administration Levofloxacin 500 mg in 100 mls @ 100 mls/hr 09/17/18 10:00 09/18/18 09:18 Levaquin 500 Mg Premixed Ivpb - IVPB 100 mls/hr DAILY JUDY Administration Protocol Famotidine/Sodium Chloride 20 mg in 50 mls @ 100 mls/hr 09/16/18 22:00 09:17 Pepcid 20 Mg Premixed Ivpb - IVPB 100 mls/hr BID JUDY Administration Potassium Phosphate 30 mm/ 510 mls @ 63.75 mls/hr 09/18/18 09:00 09/18/18 09: 14 Sodium Chloride IVPB 09/18/18 16:59 63.75 mls/hr ONCE ONE Administration 30 MM/8 HR Vancomycin HCl 1,000 mg in 250 mls @ 166.667 mls/hr 09/18/18 10:00 09/18/18 11:39 Vancomycin (Pre-Docked) IVPB 166.667 mls/hr BID JUDY Administration Protocol Mupirocin 1 applic 09/16/18 22:00 09/18/18 09:18 Bactroban Ointment (For Decolonization) - NS 09/18/18 21:59 1 applic BID JUDY Administration Ondansetron HCl 4 mg 09/18/18 11:30 09/18/18 13:06 Zofran Injection IVPUSH 4 mg Q8H JUDY Administration Simethicone 80 mg 09/16/18 22:00 09/18/18 13:09 Mylicon - PO Not Given TID JUDY Sumatriptan Succinate 100 mg 09/16/18 20:05 Imitrex - PO DAILY PRN HEADACHE ASSESSMENT/PLAN: Talia Woodall is a 48 year old female with a PMHx of Endometriosis, uterine fibroids, and Migraines who presented to the ICU s/p transvaginal hysterectomy with increased abdominal pain and shortness of breath. Uterine Leiomyomas Acute Blood Loss Anemia Migraines NEUROLOGIC - OFFICE MACHINE REPAIR SHOP SUPERVISOR pump for post-op pain - IV Tylenol - sumatriptan as needed for migraines, hold while NPO CARDIOLOGY - remains tachycardic, in sinus rhythm, likely 2/2 to pain, improved - continue monitoring on telemetry RESPIRATORY - continue NC as needed - respiratory status improved - encourage incentive spirometer RENAL - no acute issues GASTROINTESTINAL - Abd Ct showing pneumoperitoneum and hemoperitoneum - continuous abdominal exams to assess for change/increased pain - famotidine - Protonix - milecon hold while NPO - colace hold while NPO - Zofran scheduled for nausea - Dr. Joseph consulted, surgery to repair rectum perforation performed - POD #2 recommendations to continue abx, fluids, OFFICE MACHINE REPAIR SHOP SUPERVISOR pump for pain, NPO status , ID consultation, monitor hemodynamics, fluid boluses as necessary, - dressing in place - one time dose of promethazine for continued nausea GENITOURINARY - POD #5 for transvaginal hysterectomy - continue to monitor for bleeding, trend H/H - magaña removed INFECTIOUS DISEASE - Flagyl and Levofloxacin to cover for urogenital and GI ronna - ID consult - WBC increasing, likely - Blood cxs pending - vancomycin ENDOCRINE - no acute issues HEMATOLOGY - received 2 units of PRBCs - Hgb improved from low of 6, currently 9.4 - continue to trend counts, monitor H/H and transfuse as needed MUSCULOSKELETAL - no acute issues - physical therapy consult placed - encourage movement out of bed PSYCHIATRY - no acute issues F/E/N - NS @ 200cc/hr - continue to monitor electrolytes and replete as necessary - NPO PROPHYLAXIS - SCDs - no chemical prophylaxis due to risk of bleeding CODE - full code DISPO - continue to monitor in ICU CASE DISCUSSED WITH DR. NGUYEN AND PRIMARY TEAM TIEN CONNOLLY DO - PGY-1 INTERNAL MEDICINE Visit type - Emergency Visit Emergency Visit: No - New Patient This patient is new to me today: No - Critical Care Critical Care patient: Yes Total Critical Care Time (in minutes): 39 Critical Care Statement: The care of this patient involved high complexity decision making to prevent further life threatening deterioration of the patient 's condition and/or to evaluate & treat vital organ system(s) failure or risk of failure.
[2018-09-18] MEDS ORDERED: PROMETHAZINE HCL 25 MG/1 ML VIAL IVPUSH ONE (17:00)
[2018-09-18] MEDS: CHLORHEXIDINE GLUCONATE 4% CLEANSER FOR DECOLONIZATION TP SCH (21:22)
--- NOTE | 2018-09-18 23:15 | OP ---
DATE OF OPERATION: 09/16/2018 PREOPERATIVE DIAGNOSES: Increasing pneumoperitoneum and peritonitis postoperatively. POSTOPERATIVE DIAGNOSES: Anterior rectal perforation and right ovarian cyst. PROCEDURE: Diagnostic laparoscopy, evacuation of pelvic hematomas, open laparotomy, primary repair of rectal perforation, abdominal washout, and right ovarian cystotomy. This was Dr. Guerrero and Dr. Cristina Holguin. ATTENDING SURGEON: Logan Joseph MD SPECIAL AGENT: Miguel Torres MD, Shani Guerrero MD. Assisting Dr. Shani Guerrero was rCistina Holguin MD. ANESTHESIOLOGIST: GONZALEZ Lagos ANESTHESIA TYPE: General. SPECIMENS SENT: Right ovarian cyst wall. ESTIMATED BLOOD LOSS: 50 mL. INTRAVENOUS FLUID ADMINISTERED: Crystalloid 2400 mL. DRAINS: 500 and 25 mL of urine in the Lerma. DRAINS LEFT IN THE PATIENT: A Joshua-Fisher size 12 flat in the pelvis to the left lower quadrant at the skin. FINDINGS: Patient had an anterior rectal perforation adjacent to the area of the previous pelvic dissection, organized clots in the pelvis, and right ovarian cyst. INDICATION: Patient is a 48-year-old female seen postoperative day 1 with increasing abdominal pain, pneumoperitoneum confirmed on CAT scan. She was counseled regarding risks, benefits, and alternatives to diagnostic laparoscopy and possible surgical exploration for repair of identified pathology. She signed informed consent, was taken for the procedure. DESCRIPTION OF PROCEDURE: Patient was brought to the operating room. She was placed in supine position on the operating table. She was endotracheally intubated without incident. She had lower extremities to SCDs. She received intravenous antibiotics and was receiving it en route. After the patient was asleep, we carefully positioned the patient into lithotomy. Dr. Guerrero performed a pelvic examination with Dr. Cristina Holguin. They will dictate this portion of the case and its findings. We proceeded first with a diagnostic laparoscopy. A small supraumbilical incision was scribed at the skin. It was incised with a 15-blade scalpel, deepened and widened through subcutaneous tissue. Care was taken then to identify the midline rectus sheath and place a [id number]-go-[id number] through and through, allowing for a Lilli entry into the abdomen. After introducing the Lilli into the abdomen, a pneumoperitoneum was established to 15 mmHg. We began first with exploring locally. There appeared to be a large amount of clots in the pelvis, and once this was established, additional operative ports were placed in the right lower and left lower quadrants with a yuli at the skin and then introducing a 5-mm trocar into the abdomen under direct visualization. These were used to first suction clots and fluid from the pelvis. There appeared to be a large right ovarian cyst. It was immediately identified. Small amount of irrigation in the pelvic bowl and the previous site of the uterus revealed a small anterior perforation of the rectum. A small amount of stool was noted. Minimal stool contamination in the area. We proceeded then with conversion to an open case. A lower midline laparotomy was scribed at the skin. Pneumoperitoneum was relieved. At which point, we began first with a midline incision with a 10-blade scalpel through and through the skin, and we deepened and widened the incision through the subcutaneous tissue to the rectus muscles. A Lerma was also placed preoperatively to decompress the bladder. The midline rectus muscles were then divided and opened, and a finger was used to protect the intraabdominal viscera. With this done, the patient was partially eviscerated of small intestines which appeared to be collapsed. They were placed into a for protection. We then placed a Areli retractor to expose the pelvis. Additional clots were then suctioned from the abdomen, and a brief exploration of the area identified, after packing off the cecum as well as the sigmoid colon, laterally a small anterior perforation of the rectum was identified. It was probably 1 cm in length and was being contaminated by stool. Immediately, a Vicryl stitch 0 [id number] was placed across to control contamination. This allowed for ablation of the hole. An additional yejjan-ia-rscwv Vicryl was placed in the area to buttress the repair and imbricate it to some degree. With this done, there appeared to be no additional leak. Irrigation was used to clear the area. At which point, we turned our attention to the right ovarian cyst. The right ovarian cystotomy was performed by Dr. Guerrero and Dr. Cristina Holguin, and they will dictate the details of this portion of the case as well as its findings. Once complete, with the rectal hole repaired, returned the abdominal viscera to the abdomen, irrigated with approximately 2 L of sterile irrigation fluid. There appeared to be hemorrhagic fluid in both right and left upper quadrants above the liver. This was explored manually, and the texture of the liver appeared smooth. Gallbladder and appendix were also noted to be normal. A systematic remaining exploration of the abdomen appeared to be normal. With this complete, the lower midline incision was closed from the inferior and superior poles using number 1 loop PDS suture. It was tied in the center. At which point, we then turned our attention to irrigating the skin and closing it with jarod. The patient had a sterile dressing placed. She was awoken from general anesthesia, having tolerated procedure well. She returned to recovery in stable condition. Counts were correct prior to the closure of the abdomen. An additional x-ray was taken given the conversion from laparoscopic to open as a matter of procedure. MD WILLA Peterson/[id number]
[2018-09-18] MEDS ORDERED: HYDROmorphone *PCA* 10MG/50ML DISP.SYRIN ONE (23:19)
[2018-09-18] MEDS: HYDROmorphone *PCA* 10MG/50ML DISP.SYRIN PCA SCH (23:21)
[2018-09-19] MEDS: ACETAMINOPHEN 1000 MG/100 ML VIAL (NON FORMULARY) IVPB SCH ×4 (01:22→20:42)
[2018-09-19] MEDS: ONDANSETRON 4 MG/2 ML VIAL IVPUSH SCH ×3 (03:09→20:43)
[2018-09-19] MEDS: SIMETHICONE 80 MG TAB.CHEW (FP) PO SCH ×3 (06:30→22:00)
[2018-09-19 06:47] LABS: HEMATOCRIT 24.8 % (32.4-45.2); HEMOGLOBIN 8.5 GM/dL (10.7-15.3); MCH 31.4 pg (25.7-33.7); MCHC 34.1 g/dl (32.0-36.0); MEAN CELL VOLUME 92.2 fl (80-96); MEAN PLT VOLUME 7.7 fl (7.5-11.1); PLATELET COUNT 451 K/MM3 (134-434); RBC 2.69 M/mm3 (3.60-5.2); RDW 14.8 % (11.6-15.6); WHITE BLOOD COUNT 17.6 K/mm3 (4.0-10.0)
[2018-09-19 06:55] LABS: BLOOD UREA NITROGEN 4.5 mg/dL (7-18); CALCIUM 7.6 mg/dL (8.5-10.1); CREATININE 0.4 mg/dL (0.55-1.3); MAGNESIUM 2.1 mg/dL (1.8-2.4); PHOSPHOROUS 2.4 mg/dL (2.5-4.9); POTASSIUM 3.2 mmol/L (3.5-5.1)
[2018-09-19] MEDS ORDERED: POTASSIUM PHOSPHATE 30 MM in SODIUM CHLORIDE 250 ML IVPB ONE (08:30)
[2018-09-19] MEDS: KCL 10 MEQ IVPB 10 MEQ/100 ML INFUS.BAG IVPB SCH ×3 (08:42→14:01)
[2018-09-19] MEDS: FAMOTIDINE 20 MG/50 ML IVPB 20 MG/50 ML MG IVPB SCH (09:22)
[2018-09-19] MEDS: VANCOMYCIN 1 GRAM (PRE-DOCKED) 1,000 MG/250 ML BAG IVPB SCH ×2 (09:23→22:00)
[2018-09-19] MEDS: DOCUSATE SODIUM 100 MG CAPSULE (FP) PO SCH (10:25)
--- NOTE | 2018-09-19 11:04 | PN ---
Progress Note, Physician History of Present Illness: C/O GROGGINESS SECONDARY TO ANALGESICS NO C/O ABDOMINAL PAIN AT REST NO FLATUS/BM AFEBRILE WBC ELEVATED BC NO GROWTH - Current Medication List Current Medications: Active Medications Acetaminophen (Ofirmev Injection -) 1,000 mg IVPB Q6H JUDY Stop: 09/20/18 02:16 Last Admin: 09/19/18 08:24 Dose: 1,000 mg Chlorhexidine Gluconate (Hibiclens For Decolonization -) 1 applic TP HS JUDY Last Admin: 09/18/18 21:22 Dose: 1 applic Docusate Sodium (Colace -) 100 mg PO DAILY JUDY Last Admin: 09/19/18 10:25 Dose: Not Given Hydromorphone HCl (Hydromorphone 10 Mg/50 Ml-Ns) 10 mg FRINGE MAKER FRINGE MAKER JUDY; Protocol Stop: 09/23/18 19:53 Last Admin: 09/18/18 23:21 Dose: 10 mg Hydromorphone HCl (Dilaudid Vial -) 1 mg IVPB Q6H PRN PRN Reason: PAIN LEVEL 7 - 10 Metronidazole (Flagyl 500mg Premixed Ivpb -) 500 mg in 100 mls @ 100 mls/hr IVPB Q8H-IV JUDY Last Admin: 09/19/18 09:22 Dose: 100 mls/hr Levofloxacin (Levaquin 500 Mg Premixed Ivpb -) 500 mg in 100 mls @ 100 mls/hr IVPB DAILY JUDY; Protocol Last Admin: 09/19/18 09:22 Dose: 100 mls/hr Famotidine/Sodium Chloride (Pepcid 20 Mg Premixed Ivpb -) 20 mg in 50 mls @ 100 mls/hr IVPB BID JUDY Last Admin: 09/19/18 09:22 Dose: 100 mls/hr Vancomycin HCl (Vancomycin (Pre-Docked)) 1,000 mg in 250 mls @ 166.667 mls/hr IVPB BID JUDY; Protocol Last Admin: 09/19/18 09:23 Dose: 166.667 mls/hr Potassium Phosphate 30 mm/ (Sodium Chloride) 260 mls @ 43.333 mls/hr IVPB ONCE ONE Stop: 09/19/18 14:29 Potassium Chloride (Potassium Chloride 10 Meq Premix Ivpb -) 10 meq in 100 mls @ 100 mls/hr IVPB Q60M [facility] Stop: 09/19/18 11:29 Last Admin: 09/19/18 10:25 Dose: 100 mls/hr Ondansetron HCl (Zofran Injection) 4 mg IVPUSH Q8H [facility] Last Admin: 09/19/18 03:09 Dose: 4 mg Simethicone (Mylicon -) 80 mg PO TID [facility] Last Admin: 09/19/18 06:30 Dose: Not Given Sumatriptan Succinate (Imitrex -) 100 mg PO DAILY PRN PRN Reason: HEADACHE - Objective Vital Signs: Vital Signs Temperature 98 F 09/19/18 10:00 Pulse Rate 100 H 09/19/18 10:00 Respiratory Rate 18 09/19/18 10:00 Blood Pressure 138/87 09/19/18 10:00 O2 Sat by Pulse Oximetry (%) 100 09/19/18 09:00 Constitutional: Yes: No Distress Eyes: Yes: Conjunctiva Clear Cardiovascular: Yes: Regular Rate and Rhythm, S1, S2 Respiratory: Yes: Diminished Gastrointestinal: Yes: Normal Bowel Sounds, Soft, Tenderness, Other (SL DISTENDED; MILD DIFFUSE TENDERNESS; SURGICAL WOUND NO ERYTHEMA/DRAINAGE; RADHA DRAIN IN PLACE + SEROSANGUINOUS DRAINAGE) Labs: CBC, BMP 09/19/18 05:20 09/19/18 05:20 INR, PTT INR 1.23 (0.83-1.09) H 09/13/18 12:36 Assessment/Plan POD #3 REPAIR, RECTAL PERFORATION, EVACUATION OF HEMATOMA, WASHOUT POST OP HYSTERECTOMY LEUKOCYTOSIS + URINE C/S MAJOR PCN ALLERGY AWAIT C/S CONTINUE EMPIRIC VANCOMYCIN/ LEVAQUIN/ FLAGYL
--- NOTE | 2018-09-19 11:28 | PN ---
Teaching Attending Note Name of Resident: Dave Reyes ATTENDING PHYSICIAN STATEMENT I saw and evaluated the patient. I reviewed the resident's note and discussed the case with the resident. I agree with the resident's findings and plan as documented. SUBJECTIVE: Patient seen and examined in the ICU. Awake and alert. Looks much more comfortable today. Less pain. Breathing is improving. POD #3: Diagnostic laparocospy, evacuation of pelvic hematomas, open laparotomy primary repair of anterior rectal perforation, abdominal washout, right ovarian cystotomy. Intake & Output 09/16/18 09/17/18 09/18/18 09/19/18 23:59 23:59 23:59 23:59 Intake Total 5267 4812.5 5310 900 Output Total 2575 822 2965 820 Balance 2692 3990.5 2345 80 Weight 159 lb 9.6 oz 162 lb 9.6 oz 172 lb 12.8 oz 172 lb 8 oz Last Vital Signs Temp Pulse Resp BP Pulse Ox 98 F 100 H 18 138/87 100 09/19/18 10:00 09/19/18 10:00 09/19/18 10:00 09/19/18 10:00 09/19/18 09:00 Active Medications Acetaminophen (Ofirmev Injection -) 1,000 mg IVPB Q6H JUDY Stop: 09/20/18 02:16 Last Admin: 09/19/18 08:24 Dose: 1,000 mg Chlorhexidine Gluconate (Hibiclens For Decolonization -) 1 applic TP HS [facility] Last Admin: 09/18/18 21:22 Dose: 1 applic Docusate Sodium (Colace -) 100 mg PO DAILY [facility] Last Admin: 09/19/18 10:25 Dose: Not Given Hydromorphone HCl (Hydromorphone 10 Mg/50 Ml-Ns) 10 mg QUALITY MANAGER QUALITY MANAGER JUDY; Protocol Stop: 09/23/18 19:53 Last Admin: 09/18/18 23:21 Dose: 10 mg Hydromorphone HCl (Dilaudid Vial -) 1 mg IVPB Q6H PRN PRN Reason: PAIN LEVEL 7 - 10 Metronidazole (Flagyl 500mg Premixed Ivpb -) 500 mg in 100 mls @ 100 mls/hr IVPB Q8H-IV JUDY Last Admin: 09/19/18 09:22 Dose: 100 mls/hr Levofloxacin (Levaquin 500 Mg Premixed Ivpb -) 500 mg in 100 mls @ 100 mls/hr IVPB DAILY [facility]; Protocol Last Admin: 09/19/18 09:22 Dose: 100 mls/hr Famotidine/Sodium Chloride (Pepcid 20 Mg Premixed Ivpb -) 20 mg in 50 mls @ 100 mls/hr IVPB BID [facility] Last Admin: 09/19/18 09:22 Dose: 100 mls/hr Vancomycin HCl (Vancomycin (Pre-Docked)) 1,000 mg in 250 mls @ 166.667 mls/hr IVPB BID JUDY; Protocol Last Admin: 09/19/18 09:23 Dose: 166.667 mls/hr Potassium Phosphate 30 mm/ (Sodium Chloride) 260 mls @ 43.333 mls/hr IVPB ONCE ONE Stop: 09/19/18 14:29 Last Admin: 09/19/18 11:21 Dose: 43.333 mls/hr Potassium Chloride (Potassium Chloride 10 Meq Premix Ivpb -) 10 meq in 100 mls @ 100 mls/hr IVPB Q60M [facility] Stop: 09/19/18 11:29 Last Admin: 09/19/18 10:25 Dose: 100 mls/hr Ondansetron HCl (Zofran Injection) 4 mg IVPUSH Q8H [facility] Last Admin: 09/19/18 11:24 Dose: 4 mg Simethicone (Mylicon -) 80 mg PO TID [facility] Last Admin: 09/19/18 06:30 Dose: Not Given Sumatriptan Succinate (Imitrex -) 100 mg PO DAILY PRN PRN Reason: HEADACHE Gen: Awake and alert, more comfortable Heart: S1S2, regular Lung: decreased breath sounds at the bases with a few scattered rhonchi Abd: softly distended, less pain, no guarding or rigidity Ext: no edema Laboratory Results - last 24 hr 09/19/18 09/19/18 05:20 05:20 WBC 17.6 H RBC 2.69 L Hgb 8.5 L Hct 24.8 L MCV 92.2 MCH 31.4 MCHC 34.1 RDW 14.8 Plt Count 451 H MPV 7.7 Sodium 138 Potassium 3.2 L Chloride 101 Carbon Dioxide 31 Anion Gap 6 L BUN 4.5 L Creatinine 0.4 L Est GFR (CKD-EPI)AfAm 144.77 Est GFR (CKD-EPI)NonAf 124.91 Random Glucose 72 L Calcium 7.6 L Phosphorus 2.4 L Magnesium 2.1 ASSESSMENT AND PLAN: POD #7 Transvaginal Hysterectomy with surgical bleed POD #3: Diagnostic laparocospy, evacuation of pelvic hematomas, open laparotomy primary repair of anterior rectal perforation, abdominal washout, right ovarian cystotomy. Uterine Leiomyomas Acute Blood Loss Anemia - Follow abdominal exam - Normal transfusion thresholds - Pain control - Monitor H/H - APARTMENT LEASING AGENT f/u - PO when cleared by Surgery - Mechanical VTE prophylaxis - Encourage Incentive Spirometry - OOB to chair Dr Reno
[2018-09-19] MEDS ORDERED: PROMETHAZINE HCL 25 MG/1 ML VIAL IVPUSH ONE (13:30)
--- NOTE | 2018-09-19 14:12 | PN ---
Physical Exam: SUBJECTIVE: Patient seen and examined at the bedside. Continues to have some abdominal pain but is improved. Continues to have nausea but is improved. Endorses some trouble breathing that is secondary to her taking deep breaths and having abdominal pain. Cleared for clear liquid diet by surgery. Denies cp, further episodes of vomiting since yesterday, headache, dizziness, lightheadedness, numbness, tingling, further bleeding. OBJECTIVE: Vital Signs Period Temp Pulse Resp BP Sys/Jeffery Pulse Ox Last 24 Hr 98 F-99.2 F 94-120 14- 118-138/24-87 100-100 GENERAL: The patient is awake, alert, and fully oriented, in mild distress. HEAD: Normal with no signs of trauma. EYES: PERRL, extraocular movements intact, sclera anicteric, conjunctiva clear. No ptosis. NECK: Trachea midline, full range of motion, supple. LUNGS: Breath sounds equal, clear to auscultation bilaterally, no wheezes, no crackles, no accessory muscle use. HEART: Regular rate and rhythm, S1, S2 without murmur, rub or gallop. ABDOMEN: Tender abdomen diffusely, guarding, mildly distended, improved from previous exam. No masses palpated. Gomez in place, noted to be clean and dry. EXTREMITIES: 2+ pulses, warm, well-perfused, no edema. NEUROLOGICAL: Cranial nerves II through XII grossly intact. Normal speech. Muscle strength decreased due to weakness. PSYCH: Normal mood, normal affect. SKIN: Warm, dry, normal turgor, no rashes or lesions noted. Laboratory Results - last 24 hr 09/19/18 09/19/18 05:20 05:20 WBC 17.6 H RBC 2.69 L Hgb 8.5 L Hct 24.8 L MCV 92.2 MCH 31.4 MCHC 34.1 RDW 14.8 Plt Count 451 H MPV 7.7 Sodium 138 Potassium 3.2 L Chloride 101 Carbon Dioxide 31 Anion Gap 6 L BUN 4.5 L Creatinine 0.4 L Est GFR (CKD-EPI)AfAm 144.77 Est GFR (CKD-EPI)NonAf 124.91 Random Glucose 72 L Calcium 7.6 L Phosphorus 2.4 L Magnesium 2.1 Active Medications Generic Name Dose Route Start Last Admin Trade Name Freq PRN Reason Stop Dose Admin Acetaminophen 1,000 mg 09/19/18 08:15 09/19/18 13:59 Ofirmev Injection - IVPB 09/20/18 02:16 1,000 mg Q6H JUDY Administration Chlorhexidine Gluconate 1 applic 09/16/18 22:00 09/18/18 21:22 Hibiclens For Decolonization - TP 1 applic HS JUDY Administration Docusate Sodium 100 mg 09/17/18 10:00 09/19/18 10:25 Colace - PO Not Given DAILY JUDY Hydromorphone HCl 10 mg 09/16/18 20:00 09/18/18 23:21 Hydromorphone 10 Mg/50 Ml-Ns CAPACITY PLANNING ANALYST 09/23/18 19:53 10 mg CAPACITY PLANNING ANALYST JUDY Administration Protocol Hydromorphone HCl 1 mg 09/16/18 20:05 Dilaudid Vial - IVPB Q6H PRN PAIN LEVEL 7 - 10 Metronidazole 500 mg in 100 mls @ 100 mls/hr 09/17/18 02:00 09/19/18 09:22 Flagyl 500mg Premixed Ivpb - IVPB 100 mls/hr Q8H-IV JUDY Administration Levofloxacin 500 mg in 100 mls @ 100 mls/hr 09/17/18 10:00 09/19/18 09:22 Levaquin 500 Mg Premixed Ivpb - IVPB 100 mls/hr DAILY JUDY Administration Protocol Famotidine/Sodium Chloride 20 mg in 50 mls @ 100 mls/hr 09/16/18 22:00 09:22 Pepcid 20 Mg Premixed Ivpb - IVPB 100 mls/hr BID JUDY Administration Vancomycin HCl 1,000 mg in 250 mls @ 166.667 mls/hr 09/18/18 10:00 09/19/18 09:23 Vancomycin (Pre-Docked) IVPB 166.667 mls/hr BID JUDY Administration Protocol Potassium Phosphate 30 mm/ 260 mls @ 43.333 mls/hr 09/19/18 08:30 09/19/18 11 :21 Sodium Chloride IVPB 09/19/18 14:29 43.333 mls/hr ONCE ONE Administration Ondansetron HCl 4 mg 09/18/18 11:30 09/19/18 11:24 Zofran Injection IVPUSH 4 mg Q8H JUDY Administration Simethicone 80 mg 09/16/18 22:00 09/19/18 14:00 Mylicon - PO 80 mg TID JUDY Administration Sumatriptan Succinate 100 mg 09/16/18 20:05 Imitrex - PO DAILY PRN HEADACHE ASSESSMENT/PLAN: Talia Woodall is a 48 year old female with a PMHx of Endometriosis, uterine fibroids, and Migraines who presented to the ICU s/p transvaginal hysterectomy with increased abdominal pain and shortness of breath. Uterine Leiomyomas Acute Blood Loss Anemia Migraines NEUROLOGIC - CAPACITY PLANNING ANALYST pump for post-op pain - IV Tylenol - sumatriptan as needed for migraines CARDIOLOGY - remains tachycardic, in sinus rhythm, likely 2/2 to pain, improved - continue monitoring on telemetry RESPIRATORY - continue NC as needed - respiratory status improved - encourage incentive spirometer RENAL - no acute issues GASTROINTESTINAL - Abd Ct showing pneumoperitoneum and hemoperitoneum - continuous abdominal exams to assess for change/increased pain, improving - famotidine - Protonix - milecon - colace - Zofran scheduled for nausea - Dr. Joseph consulted, surgery to repair rectum perforation performed - POD #3 recommendations to continue abx, CAPACITY PLANNING ANALYST pump for pain, clear liquids, ID consultation, monitor hemodynamics, fluid boluses as necessary, - dressing in place - promethazine as needed for nausea GENITOURINARY - POD #6 for transvaginal hysterectomy - continue to monitor for bleeding, trend H/H - magaña removed INFECTIOUS DISEASE - Flagyl and Levofloxacin to cover for urogenital and GI ronna day 3 - ID consult - WBC improving - Blood cxs negative after 24 hours - Ucx growing enterococcus sensitive to levaquin - vancomycin day 2 ENDOCRINE - no acute issues HEMATOLOGY - received 2 units of PRBCs - Hgb improved from low of 6, currently 8.5, no overt signs of bleeding - continue to trend counts, monitor H/H and transfuse as needed MUSCULOSKELETAL - no acute issues - physical therapy consult placed - encourage movement out of bed PSYCHIATRY - no acute issues F/E/N - no standing fluids - continue to monitor electrolytes and replete as necessary - clear liquids PROPHYLAXIS - SCDs - early ambulation - no chemical prophylaxis due to risk of bleeding CODE - full code DISPO - continue to monitor in ICU CASE DISCUSSED WITH DR. NGUYEN AND PRIMARY TEAM TIEN CONNOLLY DO - PGY-1 INTERNAL MEDICINE Visit type - Emergency Visit Emergency Visit: No - New Patient This patient is new to me today: No - Critical Care Critical Care patient: Yes Total Critical Care Time (in minutes): 37 Critical Care Statement: The care of this patient involved high complexity decision making to prevent further life threatening deterioration of the patient 's condition and/or to evaluate & treat vital organ system(s) failure or risk of failure.
--- NOTE | 2018-09-19 17:20 | PATH ---
Surgical Pathology Report Patient Name: FOREIGN ROSALES [facility]. Rec. #: [id number] /Age/Gender: 1970 (Age: 48) / F Account: [id number] Location: [facility] ENGINEERING ILLUSTRATOR Taken: 09/16/2018 Received: 09/18/2018 Reported: 09/19/2018 Physicians: Sherry Peterson M.D. Specimen(s) Received RIGHT SIDE OVARIAN CYST WALL Clinical History Pneumoperitoneum, ovarian cyst Final Diagnosis OVARIAN CYST WALL, RIGHT SIDE, CYSTECTOMY: CONSISTENT WITH FRAGMENTS OF HEMORRHAGIC CORPUS LUTEUM CYST. Electronically Signed Maren Vela M.D. Gross Description Received in formalin labeled "right side ovarian cyst wall," is a 1.7 x 1.2 x 0.8 cm gee-brown blood clot, possibly containing soft tissue. The specimen is serially sectioned and entirely submitted in one cassette. /09/18/2018 saudi09/18/2018
--- NOTE | 2018-09-19 19:32 | PN ---
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 Called postop in consultation POD#3 s/p total vaginal hysterectomy. She had a ct scan showing hemo and pneumoperitonuim. Stable since surgery. Nausea has improved and she has a soft bowel movement. - Current Medication List Current Medications: Active Medications Acetaminophen (Ofirmev Injection -) 1,000 mg IVPB Q6H JUDY Stop: 09/20/18 02:16 Last Admin: 09/19/18 13:59 Dose: 1,000 mg Chlorhexidine Gluconate (Hibiclens For Decolonization -) 1 applic TP HS JUDY Last Admin: 09/18/18 21:22 Dose: 1 applic Docusate Sodium (Colace -) 100 mg PO DAILY [facility]Y Last Admin: 09/19/18 10:25 Dose: Not Given Hydromorphone HCl (Hydromorphone 10 Mg/50 Ml-Ns) 10 mg TEXTILE EXAMINER TEXTILE EXAMINER JUDY; Protocol Stop: 09/23/18 19:53 Last Admin: 09/18/18 23:21 Dose: 10 mg Hydromorphone HCl (Dilaudid Vial -) 1 mg IVPB Q6H PRN PRN Reason: PAIN LEVEL 7 - 10 Metronidazole (Flagyl 500mg Premixed Ivpb -) 500 mg in 100 mls @ 100 mls/hr IVPB Q8H-IV JUDY Last Admin: 09/19/18 17:43 Dose: 100 mls/hr Levofloxacin (Levaquin 500 Mg Premixed Ivpb -) 500 mg in 100 mls @ 100 mls/hr IVPB DAILY [facility]Y; Protocol Last Admin: 09/19/18 09:22 Dose: 100 mls/hr Famotidine/Sodium Chloride (Pepcid 20 Mg Premixed Ivpb -) 20 mg in 50 mls @ 100 mls/hr IVPB BID [facility] Last Admin: 09/19/18 09:22 Dose: 100 mls/hr Vancomycin HCl (Vancomycin (Pre-Docked)) 1,000 mg in 250 mls @ 166.667 mls/hr IVPB BID JUDY; Protocol Last Admin: 09/19/18 09:23 Dose: 166.667 mls/hr Ondansetron HCl (Zofran Injection) 4 mg IVPUSH Q8H [facility] Last Admin: 09/19/18 11:24 Dose: 4 mg Simethicone (Mylicon -) 80 mg PO TID [facility] Last Admin: 09/19/18 14:00 Dose: 80 mg Sumatriptan Succinate (Imitrex -) 100 mg PO DAILY PRN PRN Reason: HEADACHE - Objective Vital Signs: Vital Signs Temperature 98.2 F 09/19/18 17:45 Pulse Rate 96 H 09/19/18 17:45 Respiratory Rate 18 09/19/18 17:45 Blood Pressure 139/91 09/19/18 17:45 O2 Sat by Pulse Oximetry (%) 100 09/19/18 09:00 Vital Signs Period Temp Pulse Resp BP Sys/Jeffery Pulse Ox Last 24 Hr 98.0 F-98.9 F 90-108 13-20 109-143/67-89 100-100 Intake & Output 09/21/18 09/21/18 09/21/18 07:59 15:59 23:59 Intake Total 350 120 Balance 350 120 Weight 160 lb 14.4 oz Intake: IV 350 saline lock 350 Oral 120 Other: Voiding Method Bedpan # Unmeasured Voids Void 3 4 Bowel Movement Yes # Bowel Movements 3 Weight Measurement Method Built in [facility] Constitutional: Yes: Well Nourished, No Distress, Calm Eyes: Yes: Conjunctiva Clear, EOM Intact HENT: Yes: Atraumatic, Normocephalic Neck: Yes: Supple, Trachea Midline Cardiovascular: Yes: Regular Rate and Rhythm, S1, S2 Respiratory: Yes: Regular, CTA Bilaterally Gastrointestinal: Yes: Normal Bowel Sounds, Soft. No: Vomiting ...Rectal Exam: Yes: Deferred Genitourinary: No: CVA Tenderness - Left, CVA Tenderness - Right Breast(s): No: Mass, Skin Changes Musculoskeletal: No: Joint Stiffness, Muscle Pain Extremities: No: Cool, Cyanosis Edema: No Peripheral Pulses WNL: Yes Peripheral Pulses: Left Radial: 2+, Right Radial: 2+, Left Doralis Pedis: 2+, Right Dorsalis Pedis: 2+, Left Femoral: 2+, Right Femoral: 2+ Integumentary: No: Rash, Skin Tear Wound/Incision: Yes: Clean/Dry, Well Approximated, Gomez Intact, Open to air Neurological: Yes: Alert, Oriented Psychiatric: Yes: Alert, Oriented Labs: CBC, BMP 09/19/18 05:20 09/19/18 05:20 INR, PTT INR 1.23 (0.83-1.09) H 09/13/18 12:36 Problem List - Problems (1) Hemoperitoneum Assessment/Plan: 48yo female with less then 24hrs post of from vaginal hysterectomy pneumoperitoniem and even a small amount of hemoperitoneium is not concerning post operative day one. POD#4 s/p total vaginal hysterectomy POD#3 s/o Diagnostic laparoscopy, repair of rectal perforation, right ovarian cystotomy, RADHA ouput is low volume will consider pulling when less than 30ml Clear diet IVF hydration ID for continued antibiotics trend labs continue TEXTILE EXAMINER OOB and ambulate consider transfer to floor This patient is critically ill. Time spent reviewing chart, examining patient, talking with providers and/or family and documentation is 35 minutes. Code(s): K66.1 - HEMOPERITONEUM (2) Pneumoperitoneum Code(s): K66.8 - OTHER SPECIFIED DISORDERS OF PERITONEUM (3) Abdominal pain in female patient Code(s): R10.9 - UNSPECIFIED ABDOMINAL PAIN (4) H/O total vaginal hysterectomy Code(s): Z90.710 - ACQUIRED ABSENCE OF BOTH CERVIX AND UTERUS
[2018-09-19] MEDS: CHLORHEXIDINE GLUCONATE 4% CLEANSER FOR DECOLONIZATION TP SCH (22:00)
[2018-09-20] MEDS: ONDANSETRON 4 MG/2 ML VIAL IVPUSH SCH ×3 (03:30→19:58)
[2018-09-20] MEDS: FAMOTIDINE 20 MG/50 ML IVPB 20 MG/50 ML MG IVPB SCH ×3 (04:41→21:04)
[2018-09-20] MEDS: ACETAMINOPHEN 1000 MG/100 ML VIAL (NON FORMULARY) IVPB SCH (04:44)
[2018-09-20 07:42] LABS: HEMATOCRIT 24.5 % (32.4-45.2); HEMOGLOBIN 8.4 GM/dL (10.7-15.3); MCH 32.1 pg (25.7-33.7); MCHC 34.4 g/dl (32.0-36.0); MEAN CELL VOLUME 93.4 fl (80-96); MEAN PLT VOLUME 7.5 fl (7.5-11.1); PLATELET COUNT 519 K/MM3 (134-434); RBC 2.63 M/mm3 (3.60-5.2); RDW 14.9 % (11.6-15.6); WHITE BLOOD COUNT 19.3 K/mm3 (4.0-10.0)
--- NOTE | 2018-09-20 07:46 | PN ---
Physical Exam: SUBJECTIVE: Patient seen and examined at bedside. Currently in less pain than she was in yesterday. reported large BM yesterday which alleviated much of her pain and stress. Tolerating clear liquid diet, but slowly. States that she feels nauseous and with many of the liquids but has not vomited. Reports that chicken broth is the most well tolerated. No fevers, chills, chest pain, or shortness of breath. OBJECTIVE: Vital Signs Period Temp Pulse Resp BP Sys/Jeffery Pulse Ox Last 24 Hr 98 F-99 F 94-107 2-22 122-142/74-92 100-100 GENERAL: A&Ox3, no acute distress EYES: PERRLA, EOMI ENT: Moist mucus membranes NECK: No JVD LUNGS: CTA, no wheezes HEART: RRR, no murmurs ABDOMEN: Incisional scars noted - clean and dry, tenderness more on R than on L of abdomen, bowel sounds present MUSCULOSKELETAL: No CVA Tenderness EXTREMITIES: 2+ pulses, 1+ edema in b/l upper and lower extremities NEUROLOGICAL: Cranial nerves II-XII intact. Laboratory Results - last 24 hr 09/16/18 17:40 Crossmatch See Detail Active Medications Generic Name Dose Route Start Last Admin Trade Name Freq PRN Reason Stop Dose Admin Chlorhexidine Gluconate 1 applic 09/16/18 22:00 09/19/18 22:00 Hibiclens For Decolonization - TP 1 applic HS JUDY Administration Docusate Sodium 100 mg 09/17/18 10:00 09/19/18 10:25 Colace - PO Not Given DAILY JUDY Hydromorphone HCl 10 mg 09/16/18 20:00 09/18/18 23:21 Hydromorphone 10 Mg/50 Ml-Ns SALES AND PRODUCTION MANAGER 09/23/18 19:53 10 mg SALES AND PRODUCTION MANAGER JUDY Administration Protocol Metronidazole 500 mg in 100 mls @ 100 mls/hr 09/17/18 02:00 09/19/18 22:00 Flagyl 500mg Premixed Ivpb - IVPB 100 mls/hr Q8H-IV JUDY Administration Levofloxacin 500 mg in 100 mls @ 100 mls/hr 09/17/18 10:00 09/19/18 09:22 Levaquin 500 Mg Premixed Ivpb - IVPB 100 mls/hr DAILY JUDY Administration Protocol Famotidine/Sodium Chloride 20 mg in 50 mls @ 100 mls/hr 09/16/18 22:00 04:41 Pepcid 20 Mg Premixed Ivpb - IVPB 100 mls/hr BID JUDY Administration Vancomycin HCl 1,000 mg in 250 mls @ 166.667 mls/hr 09/18/18 10:00 09/19/18 22:00 Vancomycin (Pre-Docked) IVPB 166.667 mls/hr BID JUDY Administration Protocol Ondansetron HCl 4 mg 09/18/18 11:30 09/20/18 03:30 Zofran Injection IVPUSH 4 mg Q8H JUDY Administration Potassium Chloride 40 meq 09/20/18 10:00 K-Dur - PO 09/20/18 22:01 BID JUDY Simethicone 80 mg 09/16/18 22:00 09/19/18 22:00 Mylicon - PO 80 mg TID JUDY Administration Sumatriptan Succinate 100 mg 09/16/18 20:05 Imitrex - PO DAILY PRN HEADACHE ASSESSMENT/PLAN: 48 year old female with a PMHx of Endometriosis, uterine fibroids, and Migraines who presented to the ICU s/p transvaginal hysterectomy complicated by rectal perforation NEUROLOGIC -SALES AND PRODUCTION MANAGER pump for post-op pain, being used less than previously -IV Tylenol appears to be benefiting her -sumatriptan as needed for migraines CARDIOLOGY -HR improved to ~95, down from > 100 the previous days -no other acute issues -mildly fluid overloaded with 1+ edema, likely due to increased fluid intake; will decrease fluids likely today RESPIRATORY -on nasal cannula -encourage incentive spirometer use GASTROINTESTINAL -POD4 rectal perforation repair -pneumoperitoneum resolved -pain improved -famotidine, protonix, mylicon, colace, zofran on board -levaquin/flagyl GENITOURINARY -POD#7 for transvaginal hysterectomy -continue to monitor for bleeding, trend H/H INFECTIOUS DISEASE -levaquin/flagyl day 4 - GI and infx -vancomycin day 3 -ID consulted -Blood cxs negative after 24 hours -Ucx enterococcus ENDOCRINE -no acute issues HEMATOLOGY -received 2 units of PRBCs -Hgb stable -continue to trend counts MUSCULOSKELETAL - no acute issues - physical therapy consult placed - encourage movement out of bed FEN -no standing fluids -continue to monitor electrolytes and replete as necessary -clear liquids, advance diet as tolerated PROPHYLAXIS -SCDs -early ambulation -no chemical prophylaxis due to risk of bleeding DISPO -can be transferred to med/surg tomorrow Visit type - Emergency Visit Emergency Visit: No - New Patient This patient is new to me today: No - Critical Care Critical Care patient: Yes Total Critical Care Time (in minutes): 40 Critical Care Statement: The care of this patient involved high complexity decision making to prevent further life threatening deterioration of the patient 's condition and/or to evaluate & treat vital organ system(s) failure or risk of failure. ATTENDING PHYSICIAN STATEMENT I saw and evaluated the patient. I reviewed the resident's note and discussed the case with the resident. I agree with the resident's findings and plan as documented. SUBJECTIVE: OBJECTIVE: ASSESSMENT AND PLAN:
[2018-09-20 08:21] LABS: BLOOD UREA NITROGEN 3.8 mg/dL (7-18); CALCIUM 7.1 mg/dL (8.5-10.1); CREATININE 0.4 mg/dL (0.55-1.3); PHOSPHOROUS 3.5 mg/dL (2.5-4.9); POTASSIUM 3.3 mmol/L (3.5-5.1)
[2018-09-20] MEDS: SIMETHICONE 80 MG TAB.CHEW (FP) PO SCH ×3 (09:37→21:04)
[2018-09-20] MEDS: DOCUSATE SODIUM 100 MG CAPSULE (FP) PO SCH (09:42)
[2018-09-20] MEDS: VANCOMYCIN 1 GRAM (PRE-DOCKED) 1,000 MG/250 ML BAG IVPB SCH ×2 (09:44→21:05)
[2018-09-20] MEDS ORDERED: POTASSIUM CHLORIDE TABS 20 MEQ TABLET.ER (FP) PO SCH (10:00)
--- NOTE | 2018-09-20 10:22 | PN ---
Teaching Attending Note Name of Resident: Dave Joel ATTENDING PHYSICIAN STATEMENT I saw and evaluated the patient. I reviewed the resident's note and discussed the case with the resident. I agree with the resident's findings and plan as documented. SUBJECTIVE: Patient seen and examined in the ICU. Awake and alert. Slow but progressive improvement. Apparent BM with scant fresh blood streaks. POD #4: Diagnostic laparocospy, evacuation of pelvic hematomas, open laparotomy primary repair of anterior rectal perforation, abdominal washout, right ovarian cystotomy. Intake & Output 09/17/18 09/18/18 09/19/18 09/20/18 23:59 23:59 23:59 23:59 Intake Total 4812.5 5310 2430 150 Output Total 822 2965 2530 1010 Balance 3990.5 2345 -100 -860 Weight 162 lb 9.6 oz 172 lb 12.8 oz 172 lb 8 oz 156 lb 1.6 oz Last Vital Signs Temp Pulse Resp BP Pulse Ox 98.9 F 99 H 20 138/88 100 09/20/18 07:51 09/20/18 10:00 09/20/18 10:00 09/20/18 10:00 09/20/18 07:51 Active Medications Chlorhexidine Gluconate (Hibiclens For Decolonization -) 1 applic TP HS JUDY Last Admin: 09/19/18 22:00 Dose: 1 applic Docusate Sodium (Colace -) 100 mg PO DAILY JUDY Last Admin: 09/20/18 09:42 Dose: 100 mg Hydromorphone HCl (Hydromorphone 10 Mg/50 Ml-Ns) 10 mg POULTRY HATCHERY MANAGER POULTRY HATCHERY MANAGER JUDY; Protocol Stop: 09/23/18 19:53 Last Admin: 09/18/18 23:21 Dose: 10 mg Metronidazole (Flagyl 500mg Premixed Ivpb -) 500 mg in 100 mls @ 100 mls/hr IVPB Q8H-IV JUDY Last Admin: 09/20/18 09:43 Dose: 100 mls/hr Famotidine/Sodium Chloride (Pepcid 20 Mg Premixed Ivpb -) 20 mg in 50 mls @ 100 mls/hr IVPB BID [facility]Y Last Admin: 09/20/18 09:44 Dose: 100 mls/hr Vancomycin HCl (Vancomycin (Pre-Docked)) 1,000 mg in 250 mls @ 166.667 mls/hr IVPB BID [facility]; Protocol Last Admin: 09/20/18 09:44 Dose: 166.667 mls/hr Ondansetron HCl (Zofran Injection) 4 mg IVPUSH Q8H [facility] Last Admin: 09/20/18 03:30 Dose: 4 mg Potassium Chloride (K-Dur -) 40 meq PO BID [facility] Stop: 09/20/18 22:01 Last Admin: 09/20/18 09:43 Dose: 40 meq Simethicone (Mylicon -) 80 mg PO TID [facility] Last Admin: 09/20/18 09:37 Dose: Not Given Sumatriptan Succinate (Imitrex -) 100 mg PO DAILY PRN PRN Reason: HEADACHE Gen: Awake and alert, more comfortable Heart: S1S2, regular Lung: decreased breath sounds at the bases with a few scattered rhonchi Abd: softly distended, less pain, no guarding or rigidity Ext: no edema Laboratory Results - last 24 hr 09/16/18 09/20/18 09/20/18 17:40 06:23 06:23 WBC 19.3 H RBC 2.63 L Hgb 8.4 L Hct 24.5 L MCV 93.4 MCH 32.1 MCHC 34.4 RDW 14.9 Plt Count 519 H MPV 7.5 Sodium 137 Potassium 3.3 L Chloride 98 Carbon Dioxide 29 Anion Gap 10 BUN 3.8 L Creatinine 0.4 L Est GFR (CKD-EPI)AfAm 144.77 Est GFR (CKD-EPI)NonAf 124.91 Random Glucose 66 L Calcium 7.1 L Phosphorus 3.5 Magnesium 2.0 Crossmatch See Detail ASSESSMENT AND PLAN: POD #8 Transvaginal Hysterectomy with surgical bleed POD #4: Diagnostic laparocospy, evacuation of pelvic hematomas, open laparotomy primary repair of anterior rectal perforation, abdominal washout, right ovarian cystotomy. Uterine Leiomyomas Acute Blood Loss Anemia - Follow BM for blood - Follow abdominal exam - Normal transfusion thresholds - Pain control - Monitor H/H - PO as tolerated - Mechanical VTE prophylaxis - Encourage Incentive Spirometry - OOB to chair Dr Reno
--- NOTE | 2018-09-20 10:42 | PN ---
Progress Note, Physician History of Present Illness: STILL WITH C/O GROGGINESS C/O NAUSEA, ABDOMINAL DISCOMFORT +BM AFEBRILE WBC REMAINS ELEVATED BC NO GROWTH - Current Medication List Current Medications: Active Medications Chlorhexidine Gluconate (Hibiclens For Decolonization -) 1 applic TP HS [facility] Last Admin: 09/19/18 22:00 Dose: 1 applic Docusate Sodium (Colace -) 100 mg PO DAILY [facility] Last Admin: 09/20/18 09:42 Dose: 100 mg Hydromorphone HCl (Hydromorphone 10 Mg/50 Ml-Ns) 10 mg BENDER HELPER BENDER HELPER JUDY; Protocol Stop: 09/23/18 19:53 Last Admin: 09/18/18 23:21 Dose: 10 mg Metronidazole (Flagyl 500mg Premixed Ivpb -) 500 mg in 100 mls @ 100 mls/hr IVPB Q8H-IV JUDY Last Admin: 09/20/18 09:43 Dose: 100 mls/hr Famotidine/Sodium Chloride (Pepcid 20 Mg Premixed Ivpb -) 20 mg in 50 mls @ 100 mls/hr IVPB BID JUDY Last Admin: 09/20/18 09:44 Dose: 100 mls/hr Vancomycin HCl (Vancomycin (Pre-Docked)) 1,000 mg in 250 mls @ 166.667 mls/hr IVPB BID JUDY; Protocol Last Admin: 09/20/18 09:44 Dose: 166.667 mls/hr Ondansetron HCl (Zofran Injection) 4 mg IVPUSH Q8H [facility] Last Admin: 09/20/18 03:30 Dose: 4 mg Potassium Chloride (K-Dur -) 40 meq PO BID JUDY Stop: 09/20/18 22:01 Last Admin: 09/20/18 09:43 Dose: 40 meq Simethicone (Mylicon -) 80 mg PO TID [facility] Last Admin: 09/20/18 09:37 Dose: Not Given Sumatriptan Succinate (Imitrex -) 100 mg PO DAILY PRN PRN Reason: HEADACHE - Objective Vital Signs: Vital Signs Temperature 98.9 F 09/20/18 07:51 Pulse Rate 99 H 09/20/18 10:00 Respiratory Rate 20 09/20/18 10:00 Blood Pressure 138/88 09/20/18 10:00 O2 Sat by Pulse Oximetry (%) 100 07/24/19 07:51 Constitutional: Yes: No Distress Eyes: Yes: Conjunctiva Clear Cardiovascular: Yes: Regular Rate and Rhythm, Tachycardia, S1, S2 Respiratory: Yes: CTA Bilaterally Gastrointestinal: Yes: Normal Bowel Sounds, Soft, Tenderness, Other (MILD DIFFUSE TENDERNESS + DRAIN) Extremities: No: Calf Tenderness Edema: No Labs: CBC, BMP 09/20/18 06:23 09/20/18 06:23 INR, PTT INR 1.23 (0.83-1.09) H 09/13/18 12:36 Assessment/Plan POD #4 REPAIR, RECTAL PERFORATION, EVACUATION OF HEMATOMA, WASHOUT POST OP HYSTERECTOMY LEUKOCYTOSIS + URINE C/S MAJOR PCN ALLERGY CONTINUE EMPIRIC VANCOMYCIN/ LEVAQUIN/ FLAGYL
[2018-09-20] MEDS ORDERED: RANITIDINE HCL 150 MG TABLET (FP) PO ONE (11:30)
[2018-09-20] MEDS: KCL 10 MEQ IVPB 10 MEQ/100 ML INFUS.BAG IVPB SCH ×3 (12:36→14:57)
[2018-09-20] MEDS: oxyCODONE HCL 5 MG TABLET PO PRN ×3 (12:37→21:16)
[2018-09-20] MEDS: ACETAMINOPHEN 325 MG TABLET (FP) PO PRN ×3 (12:37→21:17)
--- NOTE | 2018-09-20 13:00 | PN ---
Teaching Attending Note Name of Resident: Dvae Joel ATTENDING PHYSICIAN STATEMENT I saw and evaluated the patient. I reviewed the resident's note and discussed the case with the resident. I agree with the resident's findings and plan as documented. SUBJECTIVE: Patient seen and examined in the ICU. Awake and alert. Continued slow but progressive improvement. Apparent BM with scant fresh blood streaks. POD #4: Diagnostic laparocospy, evacuation of pelvic hematomas, open laparotomy primary repair of anterior rectal perforation, abdominal washout, right ovarian cystotomy. Intake & Output 09/17/18 09/18/18 09/19/18 09/20/18 23:59 23:59 23:59 23:59 Intake Total 4812.5 5310 2430 150 Output Total 822 2965 2530 1010 Balance 3990.5 2345 -100 -860 Weight 162 lb 9.6 oz 172 lb 12.8 oz 172 lb 8 oz 156 lb 1.6 oz Last Vital Signs Temp Pulse Resp BP Pulse Ox 98.9 F 99 H 20 138/88 100 09/20/18 07:51 09/20/18 10:00 09/20/18 10:00 09/20/18 10:00 09/20/18 07:51 Active Medications Chlorhexidine Gluconate (Hibiclens For Decolonization -) 1 applic TP HS [facility]Y Last Admin: 09/19/18 22:00 Dose: 1 applic Docusate Sodium (Colace -) 100 mg PO DAILY [facility] Last Admin: 09/20/18 09:42 Dose: 100 mg Hydromorphone HCl (Hydromorphone 10 Mg/50 Ml-Ns) 10 mg REALTY SPECIALIST REALTY SPECIALIST JUDY; Protocol Stop: 09/23/18 19:53 Last Admin: 09/18/18 23:21 Dose: 10 mg Metronidazole (Flagyl 500mg Premixed Ivpb -) 500 mg in 100 mls @ 100 mls/hr IVPB Q8H-IV [facility]Y Last Admin: 09/20/18 09:43 Dose: 100 mls/hr Famotidine/Sodium Chloride (Pepcid 20 Mg Premixed Ivpb -) 20 mg in 50 mls @ 100 mls/hr IVPB BID [facility]Y Last Admin: 09/20/18 09:44 Dose: 100 mls/hr Vancomycin HCl (Vancomycin (Pre-Docked)) 1,000 mg in 250 mls @ 166.667 mls/hr IVPB BID [facility]; Protocol Last Admin: 09/20/18 09:44 Dose: 166.667 mls/hr Ondansetron HCl (Zofran Injection) 4 mg IVPUSH Q8H [facility] Last Admin: 09/20/18 03:30 Dose: 4 mg Potassium Chloride (K-Dur -) 40 meq PO BID [facility] Stop: 09/20/18 22:01 Last Admin: 09/20/18 09:43 Dose: 40 meq Simethicone (Mylicon -) 80 mg PO TID [facility] Last Admin: 09/20/18 09:37 Dose: Not Given Sumatriptan Succinate (Imitrex -) 100 mg PO DAILY PRN PRN Reason: HEADACHE Gen: Awake and alert, more comfortable Heart: S1S2, regular Lung: decreased breath sounds at the bases with a few scattered rhonchi Abd: softly distended, less pain, no guarding or rigidity Ext: no edema Laboratory Results - last 24 hr 09/16/18 09/20/18 09/20/18 17:40 06:23 06:23 WBC 19.3 H RBC 2.63 L Hgb 8.4 L Hct 24.5 L MCV 93.4 MCH 32.1 MCHC 34.4 RDW 14.9 Plt Count 519 H MPV 7.5 Sodium 137 Potassium 3.3 L Chloride 98 Carbon Dioxide 29 Anion Gap 10 BUN 3.8 L Creatinine 0.4 L Est GFR (CKD-EPI)AfAm 144.77 Est GFR (CKD-EPI)NonAf 124.91 Random Glucose 66 L Calcium 7.1 L Phosphorus 3.5 Magnesium 2.0 Crossmatch See Detail ASSESSMENT AND PLAN: POD #8 Transvaginal Hysterectomy with surgical bleed POD #4: Diagnostic laparocospy, evacuation of pelvic hematomas, open laparotomy primary repair of anterior rectal perforation, abdominal washout, right ovarian cystotomy. Uterine Leiomyomas Acute Blood Loss Anemia - Follow BM for blood - Follow abdominal exam - Normal transfusion thresholds - Pain control - Monitor H/H - PO as tolerated - Mechanical VTE prophylaxis - Encourage Incentive Spirometry - OOB to chair Dr Reno OBJECTIVE: ASSESSMENT AND PLAN:
[2018-09-20] MEDS: CHLORHEXIDINE GLUCONATE 4% CLEANSER FOR DECOLONIZATION TP SCH (21:07)
[2018-09-21] MEDS: ACETAMINOPHEN 325 MG TABLET (FP) PO PRN ×2 (01:58→05:40)
[2018-09-21] MEDS: oxyCODONE HCL 5 MG TABLET PO PRN ×3 (01:59→20:44)
[2018-09-21] MEDS: ONDANSETRON 4 MG/2 ML VIAL IVPUSH SCH ×3 (03:22→18:42)
[2018-09-21] MEDS: SIMETHICONE 80 MG TAB.CHEW (FP) PO SCH ×3 (05:40→21:11)
[2018-09-21 06:40] LABS: HEMATOCRIT 24.6 % (32.4-45.2); HEMOGLOBIN 8.4 GM/dL (10.7-15.3); MCH 31.9 pg (25.7-33.7); MCHC 34.1 g/dl (32.0-36.0); MEAN CELL VOLUME 93.5 fl (80-96); MEAN PLT VOLUME 7.2 fl (7.5-11.1); PLATELET COUNT 591 K/MM3 (134-434); RBC 2.63 M/mm3 (3.60-5.2); RDW 14.9 % (11.6-15.6); WHITE BLOOD COUNT 18.3 K/mm3 (4.0-10.0)
[2018-09-21 07:10] LABS: BLOOD UREA NITROGEN 3.5 mg/dL (7-18); CALCIUM 7.4 mg/dL (8.5-10.1); CREATININE 0.4 mg/dL (0.55-1.3); POTASSIUM 3.4 mmol/L (3.5-5.1)
[2018-09-21] MEDS ORDERED: POTASSIUM CHLORIDE TABS 20 MEQ TABLET.ER (FP) PO ONE ×2 (07:14→07:24)
[2018-09-21] MEDS ORDERED: ONDANSETRON *ODT* 4 MG TABLET SL ONE (08:42)
[2018-09-21] MEDS: DOCUSATE SODIUM 100 MG CAPSULE (FP) PO SCH (10:27)
[2018-09-21] MEDS ORDERED: PT OWN MED DRAWER 7, Y5N ONE (10:30)
[2018-09-21] MEDS: VANCOMYCIN 1 GRAM (PRE-DOCKED) 1,000 MG/250 ML BAG IVPB SCH ×2 (10:38→21:12)
[2018-09-21] MEDS: FAMOTIDINE 20 MG/50 ML IVPB 20 MG/50 ML MG IVPB SCH ×2 (10:39→21:12)
--- NOTE | 2018-09-21 11:36 | PN ---
Teaching Attending Note Name of Resident: Dave Reyes ATTENDING PHYSICIAN STATEMENT I saw and evaluated the patient. I reviewed the resident's note and discussed the case with the resident. I agree with the resident's findings and plan as documented. SUBJECTIVE: Patient seen and examined in the ICU. Awake and alert. Continued slow but progressive improvement. (+) non-bloody BM this AM. Tolerating PO intake. Still with some abdominal tenderness but improving. Intake & Output 09/18/18 09/19/18 09/20/18 09/21/18 23:59 23:59 23:59 23:59 Intake Total 5310 2430 1289 350 Output Total 2965 2530 1038 Balance 2345 -100 251 350 Weight 172 lb 12.8 oz 172 lb 8 oz 156 lb 1.6 oz 160 lb 14.4 oz Last Vital Signs Temp Pulse Resp BP Pulse Ox 98.4 F 108 H 20 137/85 100 09/21/18 10:00 09/21/18 10:00 09/21/18 10:00 09/21/18 10:00 09/20/18 21:00 Active Medications Acetaminophen (Tylenol -) 325 mg PO Q4H PRN PRN Reason: PAIN LEVEL 4 - 6 Last Admin: 09/21/18 05:40 Dose: 325 mg Acetaminophen (Tylenol -) 325 mg PO Q4H PRN PRN Reason: PAIN LEVEL 7 - 10 Last Admin: 09/21/18 01:58 Dose: 325 mg Chlorhexidine Gluconate (Hibiclens For Decolonization -) 1 applic TP HS [facility] Last Admin: 09/20/18 21:07 Dose: 1 applic Docusate Sodium (Colace -) 100 mg PO DAILY [facility] Last Admin: 09/21/18 10:27 Dose: Not Given Metronidazole (Flagyl 500mg Premixed Ivpb -) 500 mg in 100 mls @ 100 mls/hr IVPB Q8H-IV [facility] Last Admin: 09/21/18 10:38 Dose: 100 mls/hr Famotidine/Sodium Chloride (Pepcid 20 Mg Premixed Ivpb -) 20 mg in 50 mls @ 100 mls/hr IVPB BID [facility] Last Admin: 09/21/18 10:39 Dose: 100 mls/hr Vancomycin HCl (Vancomycin (Pre-Docked)) 1,000 mg in 250 mls @ 166.667 mls/hr IVPB BID [facility]; Protocol Last Admin: 09/21/18 10:38 Dose: 166.667 mls/hr Levofloxacin (Levaquin 750 Mg Premixed Ivpb -) 750 mg in 150 mls @ 100 mls/hr IVPB DAILY [facility]; Protocol Last Admin: 09/21/18 10:38 Dose: 100 mls/hr Ketorolac Tromethamine (Toradol) 20 mg PO ONCE ONE Stop: 09/21/18 12:01 Ondansetron HCl (Zofran Injection) 4 mg IVPUSH Q8H [facility] Last Admin: 09/21/18 03:22 Dose: 4 mg Oxycodone HCl (Roxicodone -) 5 mg PO Q4H PRN PRN Reason: PAIN LEVEL 4 - 6 Last Admin: 09/21/18 05:41 Dose: 5 mg Oxycodone HCl (Roxicodone -) 10 mg PO Q4H PRN PRN Reason: PAIN LEVEL 7 - 10 Last Admin: 09/21/18 01:59 Dose: 10 mg Simethicone (Mylicon -) 80 mg PO TID [facility] Last Admin: 09/21/18 05:40 Dose: 80 mg Sumatriptan Succinate (Imitrex -) 100 mg PO DAILY PRN PRN Reason: HEADACHE Gen: Awake and alert, more comfortable Heart: S1S2, regular Lung: decreased breath sounds at the bases with a few scattered rhonchi Abd: soft, less distended, (+) BS, less pain, no guarding or rigidity Ext: no edema Laboratory Results - last 24 hr 09/21/18 09/21/18 05:35 05:35 WBC 18.3 H RBC 2.63 L Hgb 8.4 L Hct 24.6 L MCV 93.5 MCH 31.9 MCHC 34.1 RDW 14.9 Plt Count 591 H MPV 7.2 L Sodium 138 Potassium 3.4 L Chloride 99 Carbon Dioxide 33 H Anion Gap 6 L BUN 3.5 L Creatinine 0.4 L Est GFR (CKD-EPI)AfAm 144.77 Est GFR (CKD-EPI)NonAf 124.91 Random Glucose 91 Calcium 7.4 L ASSESSMENT AND PLAN: POD #9 Transvaginal Hysterectomy with surgical bleed POD #5: Diagnostic laparocospy, evacuation of pelvic hematomas, open laparotomy primary repair of anterior rectal perforation, abdominal washout, right ovarian cystotomy. Uterine Leiomyomas Acute Blood Loss Anemia - OOB to chair and ambulate - Follow abdominal exam - Normal transfusion thresholds - Pain control - PO as tolerated - VTE prophylaxis - Encourage Incentive Spirometry - Floor Dr Reno
[2018-09-21] MEDS ORDERED: KETOROLAC TROMETHAMINE 10 MG TABLET PO ONE (12:00)
[2018-09-21] MEDS: KETOROLAC TROMETHAMINE 30 MG/1 ML VIAL IVPUSH PRN ×2 (12:25→18:42)
--- NOTE | 2018-09-21 14:32 | PN ---
Physical Exam: SUBJECTIVE: Patient seen and examined at the bedside. Patient stated that her pain is decreased, she has had non bloody bowel movements and has begun to eat. Continues to endorse nausea and drowsiness with pain medications. Overall, states that she is improved and is doing better. Stable for transfer to the floor. OBJECTIVE: Vital Signs Period Temp Pulse Resp BP Sys/Jeffery Pulse Ox Last 24 Hr 98.4 F-98.9 F 92-108 13-20 109-143/67-89 100 GENERAL: The patient is awake, alert, and fully oriented, in no acute distress. HEAD: Normal with no signs of trauma. EYES: PERRL, extraocular movements intact, sclera anicteric, conjunctiva clear. No ptosis. NECK: Trachea midline, full range of motion, supple. LUNGS: Breath sounds equal, clear to auscultation bilaterally, no wheezes, no crackles, no accessory muscle use. HEART: Regular rate and rhythm, S1, S2 without murmur, rub or gallop. ABDOMEN: Tender abdomen at the site of incisions, improved from previous exam. No guarding, no masses palpated. Gomez in place, noted to be clean and dry. EXTREMITIES: 2+ pulses, warm, well-perfused, no edema. NEUROLOGICAL: Cranial nerves II through XII grossly intact. Normal speech. Muscle strength within normal limits PSYCH: Normal mood, normal affect. SKIN: Warm, dry, normal turgor, no rashes or lesions noted. Laboratory Results - last 24 hr 09/21/18 09/21/18 05:35 05:35 WBC 18.3 H RBC 2.63 L Hgb 8.4 L Hct 24.6 L MCV 93.5 MCH 31.9 MCHC 34.1 RDW 14.9 Plt Count 591 H MPV 7.2 L Sodium 138 Potassium 3.4 L Chloride 99 Carbon Dioxide 33 H Anion Gap 6 L BUN 3.5 L Creatinine 0.4 L Est GFR (CKD-EPI)AfAm 144.77 Est GFR (CKD-EPI)NonAf 124.91 Random Glucose 91 Calcium 7.4 L CBC, BMP 09/21/18 05:35 09/21/18 05:35 Active Medications Generic Name Dose Route Start Last Admin Trade Name Freq PRN Reason Stop Dose Admin Acetaminophen 325 mg 09/20/18 12:21 09/21/18 05:40 Tylenol - PO 325 mg Q4H PRN Administration PAIN LEVEL 4 - 6 Acetaminophen 325 mg 09/20/18 12:23 09/21/18 01:58 Tylenol - PO 325 mg Q4H PRN Administration PAIN LEVEL 7 - 10 Chlorhexidine Gluconate 1 applic 09/16/18 22:00 09/20/18 21:07 Hibiclens For Decolonization - TP 1 applic HS JUDY Administration Docusate Sodium 100 mg 09/17/18 10:00 09/21/18 10:27 Colace - PO Not Given DAILY JUDY Metronidazole 500 mg in 100 mls @ 100 mls/hr 09/17/18 02:00 09/21/18 10:38 Flagyl 500mg Premixed Ivpb - IVPB 100 mls/hr Q8H-IV JUDY Administration Famotidine/Sodium Chloride 20 mg in 50 mls @ 100 mls/hr 09/16/18 22:00 10:39 Pepcid 20 Mg Premixed Ivpb - IVPB 100 mls/hr BID JUDY Administration Vancomycin HCl 1,000 mg in 250 mls @ 166.667 mls/hr 09/18/18 10:00 09/21/18 10:38 Vancomycin (Pre-Docked) IVPB 166.667 mls/hr BID JUDY Administration Protocol Levofloxacin 750 mg in 150 mls @ 100 mls/hr 09/20/18 12:00 09/21/18 10:38 Levaquin 750 Mg Premixed Ivpb - IVPB 100 mls/hr DAILY JUDY Administration Protocol Ketorolac Tromethamine 30 mg 09/21/18 11:49 09/21/18 12:25 Toradol Injection - IVPUSH 09/26/18 11:48 30 mg Q6H PRN Administration PAIN LEVEL 6-10 Ondansetron HCl 4 mg 09/18/18 11:30 09/21/18 11:30 Zofran Injection IVPUSH Not Given Q8H JUDY Oxycodone HCl 5 mg 09/20/18 12:16 09/21/18 05:41 Roxicodone - PO 5 mg Q4H PRN Administration PAIN LEVEL 4 - 6 Oxycodone HCl 10 mg 09/20/18 12:16 09/21/18 01:59 Roxicodone - PO 10 mg Q4H PRN Administration PAIN LEVEL 7 - 10 Simethicone 80 mg 09/16/18 22:00 09/21/18 05:40 Mylicon - PO 80 mg TID JUDY Administration Sumatriptan Succinate 100 mg 09/16/18 20:05 Imitrex - PO DAILY PRN HEADACHE ASSESSMENT/PLAN: Talia Woodall is a 48 year old female with a PMHx of Endometriosis, uterine fibroids, and Migraines who presented to the ICU s/p transvaginal hysterectomy with increased abdominal pain and shortness of breath. Uterine Leiomyomas Acute Blood Loss Anemia Migraines NEUROLOGIC - oxycodone and tylenol as needed for pain - toradol 30mg q6h prn pain - sumatriptan as needed for migraines CARDIOLOGY - tachycardia improved, in sinus rhythm, likely 2/2 to pain RESPIRATORY - respiratory status improved - encourage incentive spirometer RENAL - no acute issues GASTROINTESTINAL - Abd Ct showing pneumoperitoneum and hemoperitoneum - continuous abdominal exams to assess for change/increased pain, improving - famotidine - Protonix - milecon - colace - Zofran scheduled for nausea - Dr. Joseph consulted, surgery to repair rectum perforation performed - POD #5 recommendations to continue abx, regular diet, ID consultation, monitor hemodynamics, fluid boluses as necessary. - dressing in place - promethazine as needed for nausea GENITOURINARY - POD #9 for transvaginal hysterectomy - continue to monitor for bleeding, trend H/H - magaña removed INFECTIOUS DISEASE - Flagyl and Levofloxacin to cover for urogenital and GI ronna day 5 - ID consult, recs appreciated - WBC improving - Blood cxs negative after 24 hours - Ucx growing enterococcus sensitive to levaquin - vancomycin day 4 - vanco trough level ordered ENDOCRINE - no acute issues HEMATOLOGY - received 2 units of PRBCs - continue to trend counts, monitor H/H and transfuse as needed MUSCULOSKELETAL - no acute issues - physical therapy consult placed - encourage movement out of bed PSYCHIATRY - no acute issues F/E/N - no standing fluids - continue to monitor electrolytes and replete as necessary - regular diet PROPHYLAXIS - SCDs - early ambulation - no chemical prophylaxis due to risk of bleeding CODE - full code DISPO - stable for transfer to Med-surg floor CASE DISCUSSED WITH DR. NGUYEN AND PRIMARY TEAM TIEN CONNOLLY DO - PGY-1 INTERNAL MEDICINE Problem List - Problems (1) Abdominal pain in female patient Code(s): R10.9 - UNSPECIFIED ABDOMINAL PAIN (2) H/O total vaginal hysterectomy Code(s): Z90.710 - ACQUIRED ABSENCE OF BOTH CERVIX AND UTERUS (3) Pneumoperitoneum Code(s): K66.8 - OTHER SPECIFIED DISORDERS OF PERITONEUM Visit type - Emergency Visit Emergency Visit: No - New Patient This patient is new to me today: No - Critical Care Critical Care patient: No
--- NOTE | 2018-09-21 17:17 | PN ---
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 Called postop in consultation POD#3 s/p total vaginal hysterectomy. She had a ct scan showing hemo and pneumoperitonuim. Stable since surgery. Nausea has improved and she has a soft bowel movement and flatus regularly. tolerating regular diet but has a poor appetitie. - Current Medication List Current Medications: Active Medications Acetaminophen (Tylenol -) 325 mg PO Q4H PRN PRN Reason: PAIN LEVEL 4 - 6 Last Admin: 09/21/18 05:40 Dose: 325 mg Acetaminophen (Tylenol -) 325 mg PO Q4H PRN PRN Reason: PAIN LEVEL 7 - 10 Last Admin: 09/21/18 01:58 Dose: 325 mg Chlorhexidine Gluconate (Hibiclens For Decolonization -) 1 applic TP HS [facility] Last Admin: 09/20/18 21:07 Dose: 1 applic Docusate Sodium (Colace -) 100 mg PO DAILY [facility] Last Admin: 09/21/18 10:27 Dose: Not Given Metronidazole (Flagyl 500mg Premixed Ivpb -) 500 mg in 100 mls @ 100 mls/hr IVPB Q8H-IV JUDY Last Admin: 09/21/18 10:38 Dose: 100 mls/hr Famotidine/Sodium Chloride (Pepcid 20 Mg Premixed Ivpb -) 20 mg in 50 mls @ 100 mls/hr IVPB BID [facility] Last Admin: 09/21/18 10:39 Dose: 100 mls/hr Vancomycin HCl (Vancomycin (Pre-Docked)) 1,000 mg in 250 mls @ 166.667 mls/hr IVPB BID [facility]; Protocol Last Admin: 09/21/18 10:38 Dose: 166.667 mls/hr Levofloxacin (Levaquin 750 Mg Premixed Ivpb -) 750 mg in 150 mls @ 100 mls/hr IVPB DAILY [facility]; Protocol Last Admin: 09/21/18 10:38 Dose: 100 mls/hr Ketorolac Tromethamine (Toradol Injection -) 30 mg IVPUSH Q6H PRN PRN Reason: PAIN LEVEL 6-10 Stop: 09/26/18 11:48 Last Admin: 09/21/18 12:25 Dose: 30 mg Ondansetron HCl (Zofran Injection) 4 mg IVPUSH Q8H [facility] Last Admin: 09/21/18 11:30 Dose: Not Given Oxycodone HCl (Roxicodone -) 5 mg PO Q4H PRN PRN Reason: PAIN LEVEL 4 - 6 Last Admin: 09/21/18 05:41 Dose: 5 mg Oxycodone HCl (Roxicodone -) 10 mg PO Q4H PRN PRN Reason: PAIN LEVEL 7 - 10 Last Admin: 09/21/18 01:59 Dose: 10 mg Pantoprazole Sodium (Protonix -) 40 mg PO DAILY JUDY Simethicone (Mylicon -) 80 mg PO TID [facility] Last Admin: 09/21/18 16:50 Dose: 80 mg Sumatriptan Succinate (Imitrex -) 100 mg PO DAILY PRN PRN Reason: HEADACHE - Objective Vital Signs: Vital Signs Temperature 98.0 F 09/21/18 14:00 Pulse Rate 90 09/21/18 14:00 Respiratory Rate 15 09/21/18 14:00 Blood Pressure 126/80 09/21/18 14:00 O2 Sat by Pulse Oximetry (%) 100 09/21/18 09:00 Vital Signs Period Temp Pulse Resp BP Sys/Jeffery Pulse Ox Last 24 Hr 98.0 F-98.9 F 90-108 13-20 109-143/67-89 100-100 Intake & Output 09/21/18 09/21/18 09/21/18 07:59 15:59 23:59 Intake Total 350 120 Balance 350 120 Weight 160 lb 14.4 oz Intake: IV 350 saline lock 350 Oral 120 Other: Voiding Method Bedpan # Unmeasured Voids Void 3 4 Bowel Movement Yes # Bowel Movements 3 Weight Measurement Method Built in [facility] Constitutional: Yes: Well Nourished, No Distress, Calm Eyes: Yes: Conjunctiva Clear, EOM Intact HENT: Yes: Atraumatic, Normocephalic Neck: Yes: Supple, Trachea Midline Cardiovascular: Yes: Regular Rate and Rhythm, S1, S2 Respiratory: Yes: Regular, CTA Bilaterally Gastrointestinal: Yes: Normal Bowel Sounds, Soft, Tenderness (incisional but improved). No: Distention, Rectal Bleeding, Vomiting ...Rectal Exam: Yes: Deferred Genitourinary: No: CVA Tenderness - Left, CVA Tenderness - Right Breast(s): No: Mass, Skin Changes Musculoskeletal: No: Muscle Pain, Muscle Weakness Extremities: No: Cool, Cyanosis Edema: No Peripheral Pulses WNL: Yes Peripheral Pulses: Left Radial: 2+, Right Radial: 2+, Left Doralis Pedis: 2+, Right Dorsalis Pedis: 2+, Left Femoral: 2+, Right Femoral: 2+ Integumentary: No: Rash, Skin Tear Wound/Incision: Yes: Clean/Dry, Well Approximated, Gomez Intact, Open to air Neurological: Yes: Alert, Oriented Psychiatric: Yes: Alert, Oriented Labs: CBC, BMP 09/21/18 05:35 09/21/18 05:35 INR, PTT INR 1.23 (0.83-1.09) H 09/13/18 12:36 Problem List - Problems (1) Rectal perforation Assessment/Plan: 48yo female with less then 24hrs post of from vaginal hysterectomy pneumoperitoniem and even a small amount of hemoperitoneium is not concerning post operative day one. POD#8 s/p total vaginal hysterectomy POD#5 s/p Diagnostic laparoscopy, repair of rectal perforation, right ovarian cystotomy, RADHA ouput is low volume will consider pulling when less than 30ml Regular diet IVF hydration ID for continued antibiotics trend labs OOB and ambulate consider transfer to floor This patient is in guarded condition. Time spent reviewing chart, examining patient, talking with providers and/or family and documentation is 35 minutes. Code(s): K63.1 - PERFORATION OF INTESTINE (NONTRAUMATIC) (2) Hemoperitoneum Assessment/Plan: Code(s): K66.1 - HEMOPERITONEUM (3) Pneumoperitoneum Code(s): K66.8 - OTHER SPECIFIED DISORDERS OF PERITONEUM (4) Abdominal pain in female patient Code(s): R10.9 - UNSPECIFIED ABDOMINAL PAIN (5) H/O total vaginal hysterectomy Code(s): Z90.710 - ACQUIRED ABSENCE OF BOTH CERVIX AND UTERUS
[2018-09-21] MEDS: CHLORHEXIDINE GLUCONATE 4% CLEANSER FOR DECOLONIZATION TP SCH (21:12)
[2018-09-22] MEDS: oxyCODONE HCL 5 MG TABLET PO PRN ×3 (01:18→21:38)
[2018-09-22] MEDS: ONDANSETRON 4 MG/2 ML VIAL IVPUSH SCH ×3 (03:34→19:50)
[2018-09-22] MEDS: SIMETHICONE 80 MG TAB.CHEW (FP) PO SCH ×3 (05:44→22:08)
--- NOTE | 2018-09-22 08:08 | PN ---
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 Called postop in consultation POD#3 s/p total vaginal hysterectomy. She had a ct scan showing hemo and pneumoperitonuim. Stable since surgery. Nausea has improved and she has a soft bowel movement and flatus regularly. tolerating regular diet but has a poor appetitie. - Current Medication List Current Medications: Active Medications Acetaminophen (Tylenol -) 325 mg PO Q4H PRN PRN Reason: PAIN LEVEL 4 - 6 Last Admin: 09/21/18 05:40 Dose: 325 mg Acetaminophen (Tylenol -) 325 mg PO Q4H PRN PRN Reason: PAIN LEVEL 7 - 10 Last Admin: 09/21/18 01:58 Dose: 325 mg Chlorhexidine Gluconate (Hibiclens For Decolonization -) 1 applic TP HS [facility] Last Admin: 09/21/18 21:12 Dose: Not Given Docusate Sodium (Colace -) 100 mg PO DAILY [facility] Last Admin: 09/21/18 10:27 Dose: Not Given Metronidazole (Flagyl 500mg Premixed Ivpb -) 500 mg in 100 mls @ 100 mls/hr IVPB Q8H-IV JUDY Last Admin: 09/22/18 01:19 Dose: 100 mls/hr Famotidine/Sodium Chloride (Pepcid 20 Mg Premixed Ivpb -) 20 mg in 50 mls @ 100 mls/hr IVPB BID [facility] Last Admin: 09/21/18 21:12 Dose: 100 mls/hr Vancomycin HCl (Vancomycin (Pre-Docked)) 1,000 mg in 250 mls @ 166.667 mls/hr IVPB BID [facility]; Protocol Last Admin: 09/21/18 21:12 Dose: 166.667 mls/hr Levofloxacin (Levaquin 750 Mg Premixed Ivpb -) 750 mg in 150 mls @ 100 mls/hr IVPB DAILY [facility]; Protocol Last Admin: 09/21/18 10:38 Dose: 100 mls/hr Ketorolac Tromethamine (Toradol Injection -) 30 mg IVPUSH Q6H PRN PRN Reason: PAIN LEVEL 6-10 Stop: 09/26/18 11:48 Last Admin: 09/21/18 18:42 Dose: 30 mg Ondansetron HCl (Zofran Injection) 4 mg IVPUSH Q8H [facility] Last Admin: 09/22/18 03:34 Dose: 4 mg Oxycodone HCl (Roxicodone -) 5 mg PO Q4H PRN PRN Reason: PAIN LEVEL 4 - 6 Last Admin: 09/21/18 05:41 Dose: 5 mg Oxycodone HCl (Roxicodone -) 10 mg PO Q4H PRN PRN Reason: PAIN LEVEL 7 - 10 Last Admin: 09/22/18 01:18 Dose: 10 mg Pantoprazole Sodium (Protonix -) 40 mg PO DAILY JUDY Simethicone (Mylicon -) 80 mg PO TID JUDY Last Admin: 09/22/18 05:44 Dose: 80 mg Sumatriptan Succinate (Imitrex -) 100 mg PO DAILY PRN PRN Reason: HEADACHE - Objective Vital Signs: Vital Signs Temperature 98.5 F 09/22/18 05:00 Pulse Rate 96 H 09/22/18 05:00 Respiratory Rate 18 09/21/18 22:00 Blood Pressure 131/74 09/22/18 05:00 O2 Sat by Pulse Oximetry (%) 100 09/21/18 21:00 Vital Signs Period Temp Pulse Resp BP Sys/Jeffery Pulse Ox Last 24 Hr 98.0 F-99.0 F 90-113 15-20 126-143/74-93 100 Intake & Output 09/21/18 09/22/18 09/22/18 23:59 07:59 15:59 Intake Total 450 600 200 Output Total 610 1 Balance -160 599 200 Weight 144 lb 14.4 oz Intake: IVPB 250 350 Oral 200 250 200 Output: Drainage 10 1 Left Lower Abdomen 10 1 Urine 600 Void 600 Other: Voiding Method Bedside Commode Bedside Commode # Unmeasured Voids Void 3 2 3 Bowel Movement No No Yes # Bowel Movements 1 Weight Measurement Method Built in [facility] Constitutional: Yes: Well Nourished, No Distress, Calm Eyes: Yes: Conjunctiva Clear, EOM Intact HENT: Yes: Atraumatic, Normocephalic Neck: Yes: Supple, Trachea Midline Cardiovascular: Yes: Regular Rate and Rhythm, S1, S2 Respiratory: Yes: Regular, CTA Bilaterally Gastrointestinal: Yes: Normal Bowel Sounds, Soft, Tenderness (incsional) ...Rectal Exam: Yes: Deferred Genitourinary: No: CVA Tenderness - Left, CVA Tenderness - Right Breast(s): No: Mass, Skin Changes Musculoskeletal: No: Muscle Pain, Muscle Weakness Extremities: No: Cool, Cyanosis Edema: No Peripheral Pulses WNL: Yes Peripheral Pulses: Left Radial: 2+, Right Radial: 2+, Left Doralis Pedis: 2+, Right Dorsalis Pedis: 2+, Left Femoral: 2+, Right Femoral: 2+ Integumentary: Yes: Incision. No: Rash, Skin Tear Wound/Incision: Yes: Clean/Dry, Well Approximated, Gomez Intact, Open to air Neurological: Yes: Alert, Oriented Psychiatric: Yes: Alert, Oriented Labs: INR, PTT INR 1.23 (0.83-1.09) H /17/19 12:36 Problem List - Problems (1) Rectal perforation Assessment/Plan: 48yo female with less then 24hrs post of from vaginal hysterectomy pneumoperitoniem and even a small amount of hemoperitoneium is not concerning post operative day one. POD#9 s/p total vaginal hysterectomy POD#6 s/p Diagnostic laparoscopy, repair of rectal perforation, right ovarian cystotomy. Regular diet IVF hydration ID for continued antibiotics will pull RADHA drain less than 10 now trend labs OOB and ambulate will follow Code(s): K63.1 - PERFORATION OF INTESTINE (NONTRAUMATIC) (2) Hemoperitoneum Code(s): K66.1 - HEMOPERITONEUM (3) Pneumoperitoneum Code(s): K66.8 - OTHER SPECIFIED DISORDERS OF PERITONEUM (4) Abdominal pain in female patient Code(s): R10.9 - UNSPECIFIED ABDOMINAL PAIN (5) H/O total vaginal hysterectomy Code(s): Z90.710 - ACQUIRED ABSENCE OF BOTH CERVIX AND UTERUS
[2018-09-22 08:31] LABS: HEMATOCRIT 24.2 % (32.4-45.2); HEMOGLOBIN 8.2 GM/dL (10.7-15.3); MCH 31.6 pg (25.7-33.7); MCHC 33.8 g/dl (32.0-36.0); MEAN CELL VOLUME 93.5 fl (80-96); MEAN PLT VOLUME 7.4 fl (7.5-11.1); PLATELET COUNT 673 K/MM3 (134-434); RBC 2.59 M/mm3 (3.60-5.2); RDW 15.4 % (11.6-15.6); WHITE BLOOD COUNT 16.6 K/mm3 (4.0-10.0)
[2018-09-22] MEDS: KETOROLAC TROMETHAMINE 30 MG/1 ML VIAL IVPUSH PRN (08:37)
[2018-09-22 08:51] LABS: BLOOD UREA NITROGEN 3.3 mg/dL (7-18); CALCIUM 7.4 mg/dL (8.5-10.1); CREATININE 0.5 mg/dL (0.55-1.3); MAGNESIUM 2.3 mg/dL (1.8-2.4); PHOSPHOROUS 3.3 mg/dL (2.5-4.9); POTASSIUM 3.9 mmol/L (3.5-5.1)
[2018-09-22] MEDS: FAMOTIDINE 20 MG/50 ML IVPB 20 MG/50 ML MG IVPB SCH ×2 (10:00→22:09)
[2018-09-22] MEDS: VANCOMYCIN 1 GRAM (PRE-DOCKED) 1,000 MG/250 ML BAG IVPB SCH ×2 (10:00→22:09)
[2018-09-22] MEDS: DOCUSATE SODIUM 100 MG CAPSULE (FP) PO SCH (10:00)
[2018-09-22] MEDS ORDERED: PANTOPRAZOLE 40 MG TABLET (FP) PO SCH (10:00)
[2018-09-22] MEDS: ACETAMINOPHEN 325 MG TABLET (FP) PO PRN ×2 (13:16→21:39)
--- NOTE | 2018-09-22 16:21 | PN ---
Progress Note, Physician History of Present Illness: AWAKE, ALERT NO C/O ABDOMINAL PAIN + FLATUS, LOOSE BMS AFEBRILE WBC REMAINS ELEVATED BC NO GROWTH - Current Medication List Current Medications: Active Medications Acetaminophen (Tylenol -) 325 mg PO Q4H PRN PRN Reason: PAIN LEVEL 4 - 6 Last Admin: 09/22/18 13:16 Dose: 325 mg Acetaminophen (Tylenol -) 325 mg PO Q4H PRN PRN Reason: PAIN LEVEL 7 - 10 Last Admin: 09/21/18 01:58 Dose: 325 mg Chlorhexidine Gluconate (Hibiclens For Decolonization -) 1 applic TP HS [facility] Last Admin: 09/21/18 21:12 Dose: Not Given Docusate Sodium (Colace -) 100 mg PO DAILY [facility] Last Admin: 09/22/18 10:00 Dose: Not Given Metronidazole (Flagyl 500mg Premixed Ivpb -) 500 mg in 100 mls @ 100 mls/hr IVPB Q8H-IV JUDY Last Admin: 09/22/18 10:00 Dose: 100 mls/hr Famotidine/Sodium Chloride (Pepcid 20 Mg Premixed Ivpb -) 20 mg in 50 mls @ 100 mls/hr IVPB BID [facility] Last Admin: 09/22/18 10:00 Dose: 100 mls/hr Vancomycin HCl (Vancomycin (Pre-Docked)) 1,000 mg in 250 mls @ 166.667 mls/hr IVPB BID [facility]; Protocol Last Admin: 09/22/18 10:00 Dose: 166.667 mls/hr Levofloxacin (Levaquin 750 Mg Premixed Ivpb -) 750 mg in 150 mls @ 100 mls/hr IVPB DAILY [facility]; Protocol Last Admin: 09/22/18 09:59 Dose: 100 mls/hr Ketorolac Tromethamine (Toradol Injection -) 30 mg IVPUSH Q6H PRN PRN Reason: PAIN LEVEL 6-10 Stop: 09/26/18 11:48 Last Admin: 09/22/18 08:37 Dose: 30 mg Lactobacillus Acidophilus (Bacid -) 1 tab PO DAILY [facility] Ondansetron HCl (Zofran Injection) 4 mg IVPUSH Q8H [facility] Last Admin: 09/22/18 11:30 Dose: Not Given Oxycodone HCl (Roxicodone -) 5 mg PO Q4H PRN PRN Reason: PAIN LEVEL 4 - 6 Last Admin: 09/22/18 13:16 Dose: 5 mg Oxycodone HCl (Roxicodone -) 10 mg PO Q4H PRN PRN Reason: PAIN LEVEL 7 - 10 Last Admin: 09/22/18 01:18 Dose: 10 mg Pantoprazole Sodium (Protonix -) 40 mg PO DAILY [facility] Last Admin: 09/22/18 10:00 Dose: 40 mg Simethicone (Mylicon -) 80 mg PO TID [facility] Last Admin: 09/22/18 05:44 Dose: 80 mg Sumatriptan Succinate (Imitrex -) 100 mg PO DAILY PRN PRN Reason: HEADACHE - Objective Vital Signs: Vital Signs Temperature 98.8 F 09/22/18 10:00 Pulse Rate 100 H 09/22/18 10:00 Respiratory Rate 18 09/22/18 10:00 Blood Pressure 132/79 09/22/18 10:00 O2 Sat by Pulse Oximetry (%) 100 09/22/18 09:00 Constitutional: Yes: No Distress Eyes: Yes: Conjunctiva Clear Cardiovascular: Yes: Regular Rate and Rhythm, S1, S2 Respiratory: Yes: CTA Bilaterally Gastrointestinal: Yes: Normal Bowel Sounds, Soft, Tenderness, Other (MILD LOWER ABDOMINAL TENDERNESS; SURGICAL WOUND NO ERYTHEMA/ DRAINAGE) Labs: CBC, BMP 09/22/18 07:10 09/22/18 07:10 INR, PTT INR 1.23 (0.83-1.09) H 09/13/18 12:36 Assessment/Plan POST OP REPAIR, RECTAL PERFORATION, EVACUATION OF HEMATOMA, WASHOUT POST OP HYSTERECTOMY LEUKOCYTOSIS + URINE C/S MAJOR PCN ALLERGY CONTINUE EMPIRIC VANCOMYCIN/ LEVAQUIN/ FLAGYL
[2018-09-22] MEDS: LACTOBACILLUS ACIDOPHILUS 1 TABLET PO SCH (19:50)
[2018-09-22] MEDS ORDERED: SUMAtriptan SUCCINATE 50 MG TABLET PO PRN (19:59)
[2018-09-23] MEDS: ACETAMINOPHEN 325 MG TABLET (FP) PO PRN ×5 (01:14→21:51)
[2018-09-23] MEDS: oxyCODONE HCL 5 MG TABLET PO PRN ×5 (01:15→21:51)
[2018-09-23] MEDS: ONDANSETRON 4 MG/2 ML VIAL IVPUSH SCH ×3 (02:52→19:48)
[2018-09-23] MEDS: SIMETHICONE 80 MG TAB.CHEW (FP) PO SCH ×3 (06:28→21:50)
[2018-09-23 08:18] LABS: BASO % 0.2 % (0-2.0); EOS % 1.5 % (0-4.5); HEMATOCRIT 26.7 % (32.4-45.2); MCHC 33.6 g/dl (32.0-36.0); MEAN CELL VOLUME 92.2 fl (80-96); MEAN PLT VOLUME 6.9 fl (7.5-11.1); NEUT % 80.3 % (42.8-82.8); PLATELET COUNT 804 K/MM3 (134-434); RBC 2.89 M/mm3 (3.60-5.2); RDW 15.3 % (11.6-15.6)
[2018-09-23 08:35] LABS: ALBUMIN 2.2 g/dl (3.4-5.0); BILIRUBIN,TOTAL 0.3 mg/dL (0.2-1); CALCIUM 8.1 mg/dL (8.5-10.1); CREATININE 0.6 mg/dL (0.55-1.3); PREALBUMIN 15.3 mg/dl (20-40); TOT PROT 5.7 g/dl (6.4-8.2)
[2018-09-23 08:57] LABS: BLOOD UREA NITROGEN 2.9 mg/dL (7-18)
[2018-09-23] MEDS: DOCUSATE SODIUM 100 MG CAPSULE (FP) PO SCH (10:32)
[2018-09-23] MEDS: PANTOPRAZOLE 40 MG TABLET (FP) PO SCH (10:32)
[2018-09-23] MEDS: LACTOBACILLUS ACIDOPHILUS 1 TABLET PO SCH (10:32)
[2018-09-23] MEDS: VANCOMYCIN 1 GRAM (PRE-DOCKED) 1,000 MG/250 ML BAG IVPB SCH ×2 (12:00→21:51)
[2018-09-23] MEDS: FAMOTIDINE 20 MG/50 ML IVPB 20 MG/50 ML MG IVPB SCH ×2 (13:20→21:50)
[2018-09-23] MEDS: KETOROLAC TROMETHAMINE 30 MG/1 ML VIAL IVPUSH PRN (13:21)
--- NOTE | 2018-09-23 13:28 | PN ---
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: Covering [employer] HEAD note Pt w/o abd pain or rectal bleeding pt with bloating and vagina tear pain Pt with vaginal spotting pt with soft stools and flatus elevated WBC anemia Pcn aLLERGY - Current Medications Current Medications: Active Medications Acetaminophen (Tylenol -) 325 mg PO Q4H PRN PRN Reason: PAIN LEVEL 4 - 6 Last Admin: 09/23/18 10:33 Dose: 325 mg Acetaminophen (Tylenol -) 325 mg PO Q4H PRN PRN Reason: PAIN LEVEL 7 - 10 Last Admin: 09/23/18 06:28 Dose: 325 mg Docusate Sodium (Colace -) 100 mg PO DAILY [facility] Last Admin: 09/23/18 10:32 Dose: 100 mg Metronidazole (Flagyl 500mg Premixed Ivpb -) 500 mg in 100 mls @ 100 mls/hr IVPB Q8H-IV [facility]Y Last Admin: 09/23/18 10:30 Dose: 100 mls/hr Levofloxacin (Levaquin 750 Mg Premixed Ivpb -) 750 mg in 150 mls @ 100 mls/hr IVPB DAILY [facility]; Protocol Last Admin: 09/23/18 11:52 Dose: 100 mls/hr Famotidine/Sodium Chloride (Pepcid 20 Mg Premixed Ivpb -) 20 mg in 50 mls @ 100 mls/hr IVPB BID [facility] Last Admin: 09/23/18 13:20 Dose: 100 mls/hr Vancomycin HCl (Vancomycin (Pre-Docked)) 1,000 mg in 250 mls @ 166.667 mls/hr IVPB BID [facility]; Protocol Last Admin: 09/23/18 12:00 Dose: 166.667 mls/hr Ketorolac Tromethamine (Toradol Injection -) 30 mg IVPUSH Q6H PRN PRN Reason: PAIN LEVEL 6-10 Stop: 09/26/18 11:48 Last Admin: 09/23/18 13:21 Dose: 30 mg Lactobacillus Acidophilus (Bacid -) 1 tab PO DAILY [facility] Last Admin: 09/23/18 10:32 Dose: 1 tab Ondansetron HCl (Zofran Injection) 4 mg IVPUSH Q8H [facility] Last Admin: 09/23/18 13:16 Dose: Not Given Oxycodone HCl (Roxicodone -) 5 mg PO Q4H PRN PRN Reason: PAIN LEVEL 4 - 6 Last Admin: 09/23/18 10:32 Dose: 5 mg Oxycodone HCl (Roxicodone -) 10 mg PO Q4H PRN PRN Reason: PAIN LEVEL 7 - 10 Last Admin: 09/23/18 01:15 Dose: 10 mg Pantoprazole Sodium (Protonix -) 40 mg PO DAILY [facility] Last Admin: 09/23/18 10:32 Dose: 40 mg Simethicone (Mylicon -) 80 mg PO TID [facility] Last Admin: 09/23/18 13:20 Dose: 80 mg Sumatriptan Succinate (Imitrex -) 100 mg PO DAILY PRN PRN Reason: HEADACHE - Objective Vital Signs: Vital Signs Temperature 98.4 F 09/23/18 10:45 Pulse Rate 96 H 09/23/18 10:45 Respiratory Rate 20 09/23/18 10:45 Blood Pressure 119/77 09/23/18 10:45 O2 Sat by Pulse Oximetry (%) 100 09/22/18 09:00 Constitutional: Yes: Well Nourished, Anxious, Mild Distress Gastrointestinal: Yes: WNL Breast(s): Yes: WNL Extremities: Yes: WNL Edema: No Wound/Incision: Yes: Well Approximated, Gomez Intact Neurological: Yes: WNL, Alert, Oriented Labs Lab Results: CBC, BMP 09/23/18 07:30 09/23/18 07:30 Problem List - Problems (1) H/O total vaginal hysterectomy Code(s): Z90.710 - ACQUIRED ABSENCE OF BOTH CERVIX AND UTERUS (2) Rectal perforation Code(s): K63.1 - PERFORATION OF INTESTINE (NONTRAUMATIC) Assessment/Plan stable but elevated WBC leukocytosis vaginal spotting Ho vaginal hysterectomy SP repair of rectal perforation Vulvar pain PCn allergy Anemia HCT 24% Plan lidocaine gel to vulvar area OOB Continued management by ID Continue Vanco/Levaquin/flagyl
[2018-09-23] MEDS ORDERED: LIDOCAINE HCL 1%, 10 MG/ML (50 mL VIAL) SQ PRN (13:29)
[2018-09-24] MEDS: KETOROLAC TROMETHAMINE 30 MG/1 ML VIAL IVPUSH PRN ×2 (00:52→08:15)
[2018-09-24] MEDS: oxyCODONE HCL 5 MG TABLET PO PRN ×5 (01:32→21:22)
[2018-09-24] MEDS: ACETAMINOPHEN 325 MG TABLET (FP) PO PRN ×5 (01:33→21:22)
[2018-09-24] MEDS: ONDANSETRON 4 MG/2 ML VIAL IVPUSH SCH ×4 (03:41→19:52)
[2018-09-24] MEDS: SIMETHICONE 80 MG TAB.CHEW (FP) PO SCH ×3 (05:58→21:21)
[2018-09-24] MEDS ORDERED: PT OWN MED DRAWER 7, Y5N ONE (06:16)
[2018-09-24] MEDS: FAMOTIDINE 20 MG/50 ML IVPB 20 MG/50 ML MG IVPB SCH ×3 (08:15→21:21)
[2018-09-24] MEDS ORDERED: LIDOCAINE HCL 2% JELLY (30 ML/TUBE) TP ONE (09:45)
--- NOTE | 2018-09-24 09:49 | PN ---
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: Pt with burning upon urinating - Current Medications Current Medications: Active Medications Acetaminophen (Tylenol -) 325 mg PO Q4H PRN PRN Reason: PAIN LEVEL 4 - 6 Last Admin: 09/23/18 10:33 Dose: 325 mg Acetaminophen (Tylenol -) 325 mg PO Q4H PRN PRN Reason: PAIN LEVEL 7 - 10 Last Admin: 09/24/18 05:14 Dose: 325 mg Docusate Sodium (Colace -) 100 mg PO DAILY [facility] Last Admin: 09/23/18 10:32 Dose: 100 mg Metronidazole (Flagyl 500mg Premixed Ivpb -) 500 mg in 100 mls @ 100 mls/hr IVPB Q8H-IV [facility] Last Admin: 09/24/18 09:10 Dose: Not Given Levofloxacin (Levaquin 750 Mg Premixed Ivpb -) 750 mg in 150 mls @ 100 mls/hr IVPB DAILY [facility]; Protocol Last Admin: 09/23/18 11:52 Dose: 100 mls/hr Famotidine/Sodium Chloride (Pepcid 20 Mg Premixed Ivpb -) 20 mg in 50 mls @ 100 mls/hr IVPB BID [facility] Last Admin: 09/24/18 09:11 Dose: Not Given Vancomycin HCl (Vancomycin (Pre-Docked)) 1,000 mg in 250 mls @ 166.667 mls/hr IVPB BID [facility]; Protocol Last Admin: 09/23/18 21:51 Dose: 166.667 mls/hr Ketorolac Tromethamine (Toradol Injection -) 30 mg IVPUSH Q6H PRN PRN Reason: PAIN LEVEL 6-10 Stop: 09/26/18 11:48 Last Admin: 09/24/18 08:15 Dose: 30 mg Lactobacillus Acidophilus (Bacid -) 1 tab PO DAILY [facility] Last Admin: 09/23/18 10:32 Dose: 1 tab Lidocaine HCl (Xylocaine 2% Jelly) 1 applic TP ONCE ONE Stop: 09/24/18 09:46 Ondansetron HCl (Zofran Injection) 4 mg IVPUSH Q8H [facility] Last Admin: 09/24/18 03:41 Dose: Not Given Oxycodone HCl (Roxicodone -) 5 mg PO Q4H PRN PRN Reason: PAIN LEVEL 4 - 6 Last Admin: 09/23/18 10:32 Dose: 5 mg Oxycodone HCl (Roxicodone -) 10 mg PO Q4H PRN PRN Reason: PAIN LEVEL 7 - 10 Last Admin: 09/24/18 05:15 Dose: 10 mg Pantoprazole Sodium (Protonix -) 40 mg PO DAILY [facility] Last Admin: 09/23/18 10:32 Dose: 40 mg Simethicone (Mylicon -) 80 mg PO TID [facility] Last Admin: 09/24/18 05:58 Dose: 80 mg Sumatriptan Succinate (Imitrex -) 100 mg PO DAILY PRN PRN Reason: HEADACHE - Objective Vital Signs: Vital Signs Temperature 99 F 09/24/18 06:00 Pulse Rate 83 09/24/18 06:00 Respiratory Rate 20 09/24/18 06:00 Blood Pressure 126/72 09/24/18 06:00 O2 Sat by Pulse Oximetry (%) 100 09/23/18 21:00 Constitutional: Yes: Well Nourished, No Distress Gastrointestinal: Yes: WNL Breast(s): Yes: WNL Musculoskeletal: Yes: WNL Extremities: Yes: WNL Edema: No Wound/Incision: Yes: Clean/Dry, Open to air Psychiatric: Yes: WNL, Alert, Oriented Labs Lab Results: CBC, BMP 09/23/18 07:30 09/23/18 07:30 Problem List - Problems (1) H/O total vaginal hysterectomy Code(s): Z90.710 - ACQUIRED ABSENCE OF BOTH CERVIX AND UTERUS (2) Rectal perforation Code(s): K63.1 - PERFORATION OF INTESTINE (NONTRAUMATIC) Assessment/Plan stable but elevated WBC leukocytosis vaginal spotting Ho vaginal hysterectomy SP repair of rectal perforation Vulvar pain PCn allergy Anemia HCT 24% Plan lidocaine gel to vulvar area OOB Continued management by ID Continue Vanco/Levaquin/flagyl cbc today & tomorrow
[2018-09-24] MEDS: DOCUSATE SODIUM 100 MG CAPSULE (FP) PO SCH (10:08)
[2018-09-24] MEDS: PANTOPRAZOLE 40 MG TABLET (FP) PO SCH (10:08)
[2018-09-24] MEDS: LACTOBACILLUS ACIDOPHILUS 1 TABLET PO SCH (10:08)
[2018-09-24 10:25] LABS: BASO % 0.4 % (0-2.0); EOS % 2.3 % (0-4.5); HEMATOCRIT 28.2 % (32.4-45.2); HEMOGLOBIN 9.4 GM/dL (10.7-15.3); LYMPH % 12.9 % (8-40); MCH 30.6 pg (25.7-33.7); MCHC 33.4 g/dl (32.0-36.0); MEAN CELL VOLUME 91.5 fl (80-96); MEAN PLT VOLUME 6.9 fl (7.5-11.1); MONO % 6.3 % (3.8-10.2); NEUT % 78.1 % (42.8-82.8); PLATELET COUNT 952 K/MM3 (134-434); RBC 3.08 M/mm3 (3.60-5.2); RDW 15.3 % (11.6-15.6); WHITE BLOOD COUNT 13.8 K/mm3 (4.0-10.0)
[2018-09-24] MEDS: VANCOMYCIN 1 GRAM (PRE-DOCKED) 1,000 MG/250 ML BAG IVPB SCH ×2 (11:38→21:21)
[2018-09-24 17:38] LABS: EPI CELLS 3.9 /HPF (0-5/HPF); HYALINE CASTS 1 /lpf (0-8); URINE APPEARANCE CLEAR; URINE BACTERIA 0.8 /hpf (NEGATIVE); URINE BILIRUBIN NEGATIVE (NEGATIVE); URINE COLOR YELLOW; URINE GLUCOSE (UA) NEGATIVE (NEGATIVE); URINE KETONE NEGATIVE (NEGATIVE); URINE LEUK ESTERASE TRACE (NEGATIVE); URINE NITRITE NEGATIVE (NEGATIVE); URINE PROTEIN NEGATIVE (NEGATIVE); URINE RBC 1 /hpf (0-4); URINE UROBILINOGEN 0.2 mg/dL (0.2-1.0); URINE WBC 4 /hpf (0-5)
[2018-09-25] MEDS: KETOROLAC TROMETHAMINE 30 MG/1 ML VIAL IVPUSH PRN ×3 (00:34→14:18)
[2018-09-25] MEDS: oxyCODONE HCL 5 MG TABLET PO PRN ×4 (03:10→21:45)
[2018-09-25] MEDS: ACETAMINOPHEN 325 MG TABLET (FP) PO PRN ×3 (03:11→21:45)
[2018-09-25] MEDS: ONDANSETRON 4 MG/2 ML VIAL IVPUSH SCH ×3 (04:38→19:42)
[2018-09-25] MEDS: SIMETHICONE 80 MG TAB.CHEW (FP) PO SCH ×3 (06:37→21:44)
[2018-09-25 07:52] LABS: BASO % 0.3 % (0-2.0); EOS % 2.6 % (0-4.5); HEMATOCRIT 25.8 % (32.4-45.2); HEMOGLOBIN 8.7 GM/dL (10.7-15.3); LYMPH % 13.4 % (8-40); MCH 30.8 pg (25.7-33.7); MCHC 33.6 g/dl (32.0-36.0); MEAN CELL VOLUME 91.6 fl (80-96); MEAN PLT VOLUME 6.9 fl (7.5-11.1); NEUT % 76.7 % (42.8-82.8); PLATELET COUNT 918 K/MM3 (134-434); RBC 2.81 M/mm3 (3.60-5.2); RDW 15.1 % (11.6-15.6); WHITE BLOOD COUNT 12.5 K/mm3 (4.0-10.0)
[2018-09-25] MEDS: LACTOBACILLUS ACIDOPHILUS 1 TABLET PO SCH (09:25)
[2018-09-25] MEDS: PANTOPRAZOLE 40 MG TABLET (FP) PO SCH (09:25)
[2018-09-25] MEDS: DOCUSATE SODIUM 100 MG CAPSULE (FP) PO SCH ×2 (09:25→21:44)
[2018-09-25] MEDS: VANCOMYCIN 1 GRAM (PRE-DOCKED) 1,000 MG/250 ML BAG IVPB SCH (09:25)
[2018-09-25] MEDS: FAMOTIDINE 20 MG/50 ML IVPB 20 MG/50 ML MG IVPB SCH ×2 (09:25→21:45)
--- NOTE | 2018-09-25 09:46 | PN ---
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 Called postop in consultation POD#3 s/p total vaginal hysterectomy. She had a ct scan showing hemo and pneumoperitonuim. Stable since surgery. Nausea has improved and she has a soft bowel movement and flatus regularly. tolerating regular diet but has a poor appetitie. - Current Medication List Current Medications: Active Medications Acetaminophen (Tylenol -) 325 mg PO Q4H PRN PRN Reason: PAIN LEVEL 4 - 6 Last Admin: 09/25/18 03:11 Dose: 325 mg Acetaminophen (Tylenol -) 325 mg PO Q4H PRN PRN Reason: PAIN LEVEL 7 - 10 Last Admin: 09/24/18 21:22 Dose: 325 mg Docusate Sodium (Colace -) 100 mg PO DAILY [facility] Last Admin: 09/25/18 09:25 Dose: 100 mg Metronidazole (Flagyl 500mg Premixed Ivpb -) 500 mg in 100 mls @ 100 mls/hr IVPB Q8H-IV [facility] Last Admin: 09/25/18 09:24 Dose: 100 mls/hr Levofloxacin (Levaquin 750 Mg Premixed Ivpb -) 750 mg in 150 mls @ 100 mls/hr IVPB DAILY [facility]; Protocol Last Admin: 09/25/18 09:10 Dose: 100 mls/hr Famotidine/Sodium Chloride (Pepcid 20 Mg Premixed Ivpb -) 20 mg in 50 mls @ 100 mls/hr IVPB BID [facility] Last Admin: 09/25/18 09:25 Dose: 100 mls/hr Vancomycin HCl (Vancomycin (Pre-Docked)) 1,000 mg in 250 mls @ 166.667 mls/hr IVPB BID [facility]; Protocol Last Admin: 09/25/18 09:25 Dose: 166.667 mls/hr Ketorolac Tromethamine (Toradol Injection -) 30 mg IVPUSH Q6H PRN PRN Reason: PAIN LEVEL 6-10 Stop: 09/26/18 11:48 Last Admin: 09/25/18 06:39 Dose: 30 mg Lactobacillus Acidophilus (Bacid -) 1 tab PO DAILY [facility] Last Admin: 09/25/18 09:25 Dose: 1 tab Ondansetron HCl (Zofran Injection) 4 mg IVPUSH Q8H [facility] Last Admin: 09/25/18 04:38 Dose: Not Given Oxycodone HCl (Roxicodone -) 5 mg PO Q4H PRN PRN Reason: PAIN LEVEL 4 - 6 Last Admin: 09/25/18 03:10 Dose: 5 mg Oxycodone HCl (Roxicodone -) 10 mg PO Q4H PRN PRN Reason: PAIN LEVEL 7 - 10 Last Admin: 09/24/18 21:22 Dose: 10 mg Pantoprazole Sodium (Protonix -) 40 mg PO DAILY [facility] Last Admin: 09/25/18 09:25 Dose: 40 mg Simethicone (Mylicon -) 80 mg PO TID [facility] Last Admin: 09/25/18 06:37 Dose: 80 mg Sumatriptan Succinate (Imitrex -) 100 mg PO DAILY PRN PRN Reason: HEADACHE - Objective Vital Signs: Vital Signs Temperature 99.0 F 09/25/18 06:10 Pulse Rate 83 09/25/18 06:10 Respiratory Rate 20 09/25/18 06:10 Blood Pressure 130/76 09/25/18 06:10 O2 Sat by Pulse Oximetry (%) 99 09/24/18 09:00 Vital Signs Period Temp Pulse Resp BP Sys/Jeffery Pulse Ox Last 24 Hr 98.5 F-99.0 F 75-87 20-20 122-130/71-76 Intake & Output 09/24/18 09/25/18 09/25/18 23:59 07:59 15:59 Intake Total 400 Balance 400 Weight 130 lb 1 oz Intake: Oral 400 Other: Voiding Method Toilet # Unmeasured Voids Void 2 Bowel Movement No # Bowel Movements 1 Weight Measurement Method Built in [facility] Constitutional: Yes: Well Nourished, No Distress, Calm Eyes: Yes: Conjunctiva Clear, EOM Intact HENT: Yes: Atraumatic, Normocephalic Neck: Yes: Supple, Trachea Midline Cardiovascular: Yes: Regular Rate and Rhythm, S1, S2 Respiratory: Yes: Regular, CTA Bilaterally Gastrointestinal: Yes: Normal Bowel Sounds, Soft. No: Tenderness, Tenderness, Epigastrium, Tenderness, Rebound ...Rectal Exam: Yes: Deferred Genitourinary: No: CVA Tenderness - Left, CVA Tenderness - Right Breast(s): No: Mass, Skin Changes Musculoskeletal: No: Muscle Pain, Muscle Weakness Extremities: No: Cool, Cyanosis Edema: No Peripheral Pulses WNL: Yes Peripheral Pulses: Left Radial: 2+, Right Radial: 2+, Left Doralis Pedis: 2+, Right Dorsalis Pedis: 2+, Left Femoral: 2+, Right Femoral: 2+ Integumentary: Yes: Incision. No: Pressure Ulcer, Skin Tear Wound/Incision: Yes: Clean/Dry, Well Approximated, [place] Intact, Open to air, [place] Removed (every other). No: Draining, Reddened Neurological: Yes: Alert, Oriented Psychiatric: Yes: Alert, Oriented Labs: CBC, BMP 09/25/18 06:20 09/23/18 07:30 INR, PTT INR 1.23 (0.83-1.09) H 09/13/18 12:36 Problem List - Problems (1) Rectal perforation Assessment/Plan: 48yo female with less then 24hrs post of from vaginal hysterectomy pneumoperitoniem and even a small amount of hemoperitoneium is not concerning post operative day one. POD#12 s/p total vaginal hysterectomy POD#9 s/p Diagnostic laparoscopy, repair of rectal perforation, right ovarian cystotomy. Clincally improved Regular diet IVF hydration ID for PO antibiotics trend labs OOB and ambulate consider discharge home on PO antibiotics will follow Code(s): K63.1 - PERFORATION OF INTESTINE (NONTRAUMATIC) (2) Hemoperitoneum Code(s): K66.1 - HEMOPERITONEUM (3) Pneumoperitoneum Code(s): K66.8 - OTHER SPECIFIED DISORDERS OF PERITONEUM (4) Abdominal pain in female patient Code(s): R10.9 - UNSPECIFIED ABDOMINAL PAIN (5) H/O total vaginal hysterectomy Code(s): Z90.710 - ACQUIRED ABSENCE OF BOTH CERVIX AND UTERUS
--- NOTE | 2018-09-25 10:26 | PN ---
Progress Note, Physician History of Present Illness: AWAKE, ALERT AMBULATORY NO C/O ABDOMINAL PAIN + FLATUS, + BM YESTERDAY AFEBRILE WBC IMPROVED BC NO GROWTH - Current Medication List Current Medications: Active Medications Acetaminophen (Tylenol -) 325 mg PO Q4H PRN PRN Reason: PAIN LEVEL 4 - 6 Last Admin: 09/25/18 03:11 Dose: 325 mg Acetaminophen (Tylenol -) 325 mg PO Q4H PRN PRN Reason: PAIN LEVEL 7 - 10 Last Admin: 09/24/18 21:22 Dose: 325 mg Docusate Sodium (Colace -) 100 mg PO DAILY [facility] Last Admin: 09/25/18 09:25 Dose: 100 mg Metronidazole (Flagyl 500mg Premixed Ivpb -) 500 mg in 100 mls @ 100 mls/hr IVPB Q8H-IV [facility] Last Admin: 09/25/18 09:24 Dose: 100 mls/hr Levofloxacin (Levaquin 750 Mg Premixed Ivpb -) 750 mg in 150 mls @ 100 mls/hr IVPB DAILY [facility]; Protocol Last Admin: 09/25/18 09:10 Dose: 100 mls/hr Famotidine/Sodium Chloride (Pepcid 20 Mg Premixed Ivpb -) 20 mg in 50 mls @ 100 mls/hr IVPB BID [facility] Last Admin: 09/25/18 09:25 Dose: 100 mls/hr Vancomycin HCl (Vancomycin (Pre-Docked)) 1,000 mg in 250 mls @ 166.667 mls/hr IVPB BID [facility]; Protocol Last Admin: 09/25/18 09:25 Dose: 166.667 mls/hr Ketorolac Tromethamine (Toradol Injection -) 30 mg IVPUSH Q6H PRN PRN Reason: PAIN LEVEL 6-10 Stop: 09/26/18 11:48 Last Admin: 09/25/18 06:39 Dose: 30 mg Lactobacillus Acidophilus (Bacid -) 1 tab PO DAILY [facility] Last Admin: 09/25/18 09:25 Dose: 1 tab Ondansetron HCl (Zofran Injection) 4 mg IVPUSH Q8H [facility] Last Admin: 09/25/18 04:38 Dose: Not Given Oxycodone HCl (Roxicodone -) 5 mg PO Q4H PRN PRN Reason: PAIN LEVEL 4 - 6 Last Admin: 09/25/18 03:10 Dose: 5 mg Oxycodone HCl (Roxicodone -) 10 mg PO Q4H PRN PRN Reason: PAIN LEVEL 7 - 10 Last Admin: 09/24/18 21:22 Dose: 10 mg Pantoprazole Sodium (Protonix -) 40 mg PO DAILY [facility] Last Admin: 09/25/18 09:25 Dose: 40 mg Simethicone (Mylicon -) 80 mg PO TID [facility] Last Admin: 09/25/18 06:37 Dose: 80 mg Sumatriptan Succinate (Imitrex -) 100 mg PO DAILY PRN PRN Reason: HEADACHE - Objective Vital Signs: Vital Signs Temperature 99.0 F 09/25/18 06:10 Pulse Rate 83 09/25/18 06:10 Respiratory Rate 20 09/25/18 06:10 Blood Pressure 130/76 09/25/18 06:10 O2 Sat by Pulse Oximetry (%) 99 09/24/18 09:00 Constitutional: Yes: No Distress Eyes: Yes: Conjunctiva Clear Cardiovascular: Yes: Regular Rate and Rhythm, S1, S2 Respiratory: Yes: CTA Bilaterally Gastrointestinal: Yes: Normal Bowel Sounds, Soft, Tenderness, Other (MILD DIFFUSE TENDERNESS; SURGICAL WOUND NO ERYTHEMA, DRAINAGE) Edema: No Labs: CBC, BMP 09/25/18 06:20 09/23/18 07:30 INR, PTT INR 1.23 (0.83-1.09) H 09/13/18 12:36 Assessment/Plan POST OP REPAIR, RECTAL PERFORATION, EVACUATION OF HEMATOMA, WASHOUT POST OP HYSTERECTOMY LEUKOCYTOSIS IMPROVING + URINE C/S MAJOR PCN ALLERGY POD #9 SUBSTITUTE PO LEVAQUIN/ FLAGYL X 5D DISCUSSED WITH SURGERY
[2018-09-25] MEDS: metroNIDAZOLE 250 MG TABLET PO SCH ×2 (11:15→17:40)
--- NOTE | 2018-09-25 11:56 | PN ---
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 Pt without complaints doing well somewhat weeping this morn reassurance given - Current Medications Current Medications: Active Medications Acetaminophen (Tylenol -) 325 mg PO Q4H PRN PRN Reason: PAIN LEVEL 4 - 6 Last Admin: 09/25/18 03:11 Dose: 325 mg Acetaminophen (Tylenol -) 325 mg PO Q4H PRN PRN Reason: PAIN LEVEL 7 - 10 Last Admin: 09/24/18 21:22 Dose: 325 mg Docusate Sodium (Colace -) 100 mg PO DAILY [facility] Last Admin: 09/25/18 09:25 Dose: 100 mg Famotidine/Sodium Chloride (Pepcid 20 Mg Premixed Ivpb -) 20 mg in 50 mls @ 100 mls/hr IVPB BID [facility] Last Admin: 09/25/18 09:25 Dose: 100 mls/hr Ketorolac Tromethamine (Toradol Injection -) 30 mg IVPUSH Q6H PRN PRN Reason: PAIN LEVEL 6-10 Stop: 09/26/18 11:48 Last Admin: 09/25/18 06:39 Dose: 30 mg Lactobacillus Acidophilus (Bacid -) 1 tab PO DAILY [facility] Last Admin: 09/25/18 09:25 Dose: 1 tab Levofloxacin (Levaquin -) 500 mg PO DAILY@0600 [facility] Metronidazole (Flagyl -) 500 mg PO TIDAC [facility] Last Admin: 09/25/18 11:15 Dose: Not Given Ondansetron HCl (Zofran Injection) 4 mg IVPUSH Q8H [facility] Last Admin: 09/25/18 11:19 Dose: 4 mg Oxycodone HCl (Roxicodone -) 5 mg PO Q4H PRN PRN Reason: PAIN LEVEL 4 - 6 Last Admin: 09/25/18 11:00 Dose: 5 mg Oxycodone HCl (Roxicodone -) 10 mg PO Q4H PRN PRN Reason: PAIN LEVEL 7 - 10 Last Admin: 09/24/18 21:22 Dose: 10 mg Pantoprazole Sodium (Protonix -) 40 mg PO DAILY [facility] Last Admin: 09/25/18 09:25 Dose: 40 mg Simethicone (Mylicon -) 80 mg PO TID [facility] Last Admin: 09/25/18 06:37 Dose: 80 mg Sumatriptan Succinate (Imitrex -) 100 mg PO DAILY PRN PRN Reason: HEADACHE - Objective Vital Signs: Vital Signs Temperature 99.0 F 09/25/18 06:10 Pulse Rate 83 09/25/18 06:10 Respiratory Rate 20 09/25/18 06:10 Blood Pressure 130/76 09/25/18 06:10 O2 Sat by Pulse Oximetry (%) 99 09/24/18 09:00 Constitutional: Yes: Well Nourished, No Distress Gastrointestinal: Yes: WNL, Soft Extremities: Yes: WNL Edema: No Wound/Incision: Yes: Clean/Dry, [place] Intact Neurological: Yes: WNL, Alert, Oriented Labs Lab Results: CBC, BMP 09/25/18 06:20 09/23/18 07:30 Problem List - Problems (1) H/O total vaginal hysterectomy Code(s): Z90.710 - ACQUIRED ABSENCE OF BOTH CERVIX AND UTERUS (2) Rectal perforation Code(s): K63.1 - PERFORATION OF INTESTINE (NONTRAUMATIC) Assessment/Plan stable ID and surgeon note appreciated leukocytosis improving Ho vaginal hysterectomy SP repair of rectal perforation Vulvar pain PCn allergy Anemia HCT 24% Plan lidocaine gel to vulvar area OOB ID changed to po abs advised will send home when cleared
[2018-09-26] MEDS: ONDANSETRON 4 MG/2 ML VIAL IVPUSH SCH ×3 (03:35→19:33)
[2018-09-26] MEDS: ACETAMINOPHEN 325 MG TABLET (FP) PO PRN ×4 (05:54→20:14)
[2018-09-26] MEDS: oxyCODONE HCL 5 MG TABLET PO PRN ×4 (05:54→21:38)
[2018-09-26] MEDS: SIMETHICONE 80 MG TAB.CHEW (FP) PO SCH ×3 (06:26→21:38)
[2018-09-26] MEDS: metroNIDAZOLE 250 MG TABLET PO SCH ×3 (06:26→16:07)
[2018-09-26 07:28] LABS: BASO % 0.5 % (0-2.0); EOS % 2.2 % (0-4.5); HEMATOCRIT 27.2 % (32.4-45.2); HEMOGLOBIN 9.3 GM/dL (10.7-15.3); LYMPH % 14.1 % (8-40); MCH 31.2 pg (25.7-33.7); MEAN CELL VOLUME 91.7 fl (80-96); MEAN PLT VOLUME 6.9 fl (7.5-11.1); MONO % 6.5 % (3.8-10.2); NEUT % 76.7 % (42.8-82.8); PLATELET COUNT 1028 K/MM3 (134-434); RBC 2.97 M/mm3 (3.60-5.2); RDW 15.2 % (11.6-15.6); WHITE BLOOD COUNT 13.7 K/mm3 (4.0-10.0)
[2018-09-26] MEDS: LACTOBACILLUS ACIDOPHILUS 1 TABLET PO SCH (09:41)
[2018-09-26] MEDS: FAMOTIDINE 20 MG/50 ML IVPB 20 MG/50 ML MG IVPB SCH ×2 (09:41→21:38)
[2018-09-26] MEDS: DOCUSATE SODIUM 100 MG CAPSULE (FP) PO SCH ×2 (09:41→21:38)
[2018-09-26] MEDS: PANTOPRAZOLE 40 MG TABLET (FP) PO SCH (09:41)
--- NOTE | 2018-09-26 17:45 | PN ---
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 for Dr Guerrero Pt with complaints headache and neck pain Pt with vaginal burning reassurance given - Current Medications Current Medications: Active Medications Acetaminophen (Tylenol -) 325 mg PO Q4H PRN PRN Reason: PAIN LEVEL 4 - 6 Last Admin: 09/26/18 10:27 Dose: 325 mg Acetaminophen (Tylenol -) 325 mg PO Q4H PRN PRN Reason: PAIN LEVEL 7 - 10 Last Admin: 09/26/18 16:08 Dose: 325 mg Docusate Sodium (Colace -) 100 mg PO BID [facility] Last Admin: 09/26/18 09:41 Dose: 100 mg Famotidine/Sodium Chloride (Pepcid 20 Mg Premixed Ivpb -) 20 mg in 50 mls @ 100 mls/hr IVPB BID [facility] Last Admin: 09/26/18 09:41 Dose: 100 mls/hr Lactobacillus Acidophilus (Bacid -) 1 tab PO DAILY [facility] Last Admin: 09/26/18 09:41 Dose: 1 tab Levofloxacin (Levaquin -) 500 mg PO DAILY@0600 [facility] Last Admin: 09/26/18 06:26 Dose: 500 mg Metronidazole (Flagyl -) 500 mg PO TIDAC [facility] Last Admin: 09/26/18 16:07 Dose: 500 mg Ondansetron HCl (Zofran Injection) 4 mg IVPUSH Q8H [facility] Last Admin: 09/26/18 13:29 Dose: Not Given Oxycodone HCl (Roxicodone -) 5 mg PO Q4H PRN PRN Reason: PAIN LEVEL 4 - 6 Last Admin: 09/26/18 10:26 Dose: 5 mg Oxycodone HCl (Roxicodone -) 10 mg PO Q4H PRN PRN Reason: PAIN LEVEL 7 - 10 Last Admin: 09/26/18 16:08 Dose: 10 mg Pantoprazole Sodium (Protonix -) 40 mg PO DAILY [facility] Last Admin: 09/26/18 09:41 Dose: 40 mg Simethicone (Mylicon -) 80 mg PO TID [facility] Last Admin: 09/26/18 14:07 Dose: 80 mg Sumatriptan Succinate (Imitrex -) 100 mg PO DAILY PRN PRN Reason: HEADACHE Last Admin: 09/26/18 14:36 Dose: 100 mg - Objective Vital Signs: Vital Signs Temperature 98.6 F 09/26/18 10:00 Pulse Rate 107 H 09/26/18 10:00 Respiratory Rate 18 09/26/18 10:00 Blood Pressure 118/75 09/26/18 10:00 O2 Sat by Pulse Oximetry (%) 98 09/26/18 09:00 Constitutional: Yes: Well Nourished, No Distress Labs Lab Results: CBC, BMP 09/26/18 06:15 09/23/18 07:30 Problem List - Problems (1) H/O total vaginal hysterectomy Code(s): Z90.710 - ACQUIRED ABSENCE OF BOTH CERVIX AND UTERUS (2) Rectal perforation Code(s): K63.1 - PERFORATION OF INTESTINE (NONTRAUMATIC) Assessment/Plan Pt with c/o neck pain & headache will go neurology consult leukocytosis improving Ho vaginal hysterectomy SP repair of rectal perforation Vulvar pain PCn allergy Anemia HCT 24% Plan Premarin per vagina lidocaine gel to vulvar area OOB ID changed to po abs advised will send home when cleared
[2018-09-27] MEDS: ONDANSETRON 4 MG/2 ML VIAL IVPUSH SCH ×4 (03:18→19:35)
[2018-09-27] MEDS: oxyCODONE HCL 5 MG TABLET PO PRN ×3 (05:21→19:48)
[2018-09-27] MEDS: ACETAMINOPHEN 325 MG TABLET (FP) PO PRN ×3 (05:21→19:49)
[2018-09-27] MEDS: metroNIDAZOLE 250 MG TABLET PO SCH ×4 (06:17→17:07)
[2018-09-27] MEDS: SIMETHICONE 80 MG TAB.CHEW (FP) PO SCH ×3 (06:17→21:27)
[2018-09-27] MEDS: FAMOTIDINE 20 MG/50 ML IVPB 20 MG/50 ML MG IVPB SCH (09:49)
[2018-09-27] MEDS: DOCUSATE SODIUM 100 MG CAPSULE (FP) PO SCH ×2 (09:54→21:27)
[2018-09-27] MEDS: LACTOBACILLUS ACIDOPHILUS 1 TABLET PO SCH (09:54)
[2018-09-27] MEDS: PANTOPRAZOLE 40 MG TABLET (FP) PO SCH (09:54)
[2018-09-27] MEDS ORDERED: SUMAtriptan SUCCINATE 50 MG TABLET PO PRN (10:18)
--- NOTE | 2018-09-27 10:24 | CONSULT ---
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 History of "migraines" since early teens described as sharp L hemicranial pain with associated phonophobia, photophobia, kinesiophobia. These were frequently associated with menses (catamenial). ANDERSON's were sometimes preceded by a visual aura in "L eye" described as "squiggly lines." She has been treated previously by two neurologists, now currently receiving Botox injections for 3 months with reduction of headaches from > 10/ month to 1- 2/ month, usually relieved by sumatriptan 100 mg x 1. (Dr. Jennifer Bernardo) Admitted for planned transvaginal hysterectomy complicated by rectal perforation on Levaquin and Flagyl. Now with 2 days of occipital pains "feeling like my head is going to explode" with same associated features as her previous headaches. Also, with ongoing complaints of "abdominal pressure" in the surgical site. FH++ 27 year old daughter with headaches Review of systems sig for previous history of bruxism. Also notes many years of poor sleep and recurrent awakenings. Notes increasing "twitching of leg" worsened with prolonged bedrest. WBC= 13.7 MCV= 91. 7 ANTHONY: BP 121/77. T 99.2. 130lb. Cor reg. No bruit. Neck supple. Neuro: Awake, alert, responsive. Ox x 3 CNII-CNXII: EOM's full without nystagmus. No facial. Motor: No drift or tremor. Strength normal. Reflexes normal. Toes downgoing. Coordination: No FTN dystaxia. Sensation: Normal to vibration. Gait: deferred. Impression: Normal Neurological Exam Migraine headaches- currently with exacerbation due to TME Restless Limbs Syndrome Worsened by Toxic Metabolic Encephalopathy (post-op infection) Suggest: Continue Sumatriptan 100 mg prn for migraine Continue Zofran as needed for nausea (Avoid Reglan as it will worsen RLS-related symptoms) Try pramipexole 0.125 mg HS and increase to 0.25 mg BID as tolerated Check Fe++, TIBC, Ferritin Continue Botox injections at current frequency q3 months, with next scheduled for Botox Oct 27 Thank you very much, Osiel Zheng MD
--- NOTE | 2018-09-27 14:16 | PN ---
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 Called postop in consultation POD#3 s/p total vaginal hysterectomy. She had a ct scan showing hemo and pneumoperitonuim. Stable since surgery. Nausea has improved and she has a soft bowel movement and flatus regularly. tolerating regular diet but has a poor appetitie. Re-imaged and has collections. Patient is exprssing feelings of sadness and fear. - Current Medication List Current Medications: Active Medications Acetaminophen (Tylenol -) 325 mg PO Q4H PRN PRN Reason: PAIN LEVEL 4 - 6 Last Admin: 09/26/18 20:14 Dose: 325 mg Acetaminophen (Tylenol -) 325 mg PO Q4H PRN PRN Reason: PAIN LEVEL 7 - 10 Last Admin: 09/27/18 13:12 Dose: 325 mg Docusate Sodium (Colace -) 100 mg PO BID [facility] Last Admin: 09/27/18 09:54 Dose: Not Given Lactobacillus Acidophilus (Bacid -) 1 tab PO DAILY [facility] Last Admin: 09/27/18 09:54 Dose: Not Given Levofloxacin (Levaquin -) 500 mg PO DAILY@0600 [facility] Last Admin: 09/27/18 06:17 Dose: 500 mg Metronidazole (Flagyl -) 500 mg PO TIDAC [facility] Last Admin: 09/27/18 13:13 Dose: 500 mg Ondansetron HCl (Zofran Injection) 4 mg IVPUSH Q8H [facility] Last Admin: 09/27/18 13:14 Dose: 4 mg Oxycodone HCl (Roxicodone -) 5 mg PO Q4H PRN PRN Reason: PAIN LEVEL 4 - 6 Last Admin: 09/26/18 10:26 Dose: 5 mg Oxycodone HCl (Roxicodone -) 10 mg PO Q4H PRN PRN Reason: PAIN LEVEL 7 - 10 Last Admin: 09/27/18 13:12 Dose: 10 mg Pantoprazole Sodium (Protonix -) 40 mg PO DAILY [facility] Last Admin: 09/27/18 09:54 Dose: Not Given Pramipexole Dihydrochloride (Mirapex -) 0.125 mg PO [facility] Simethicone (Mylicon -) 80 mg PO TID [facility] Last Admin: 09/27/18 13:14 Dose: 80 mg Sumatriptan Succinate (Imitrex -) 100 mg PO PRN PRN PRN Reason: HEADACHE - Objective Vital Signs: Vital Signs Temperature 98.1 F 09/27/18 10:00 Pulse Rate 93 H 09/27/18 10:00 Respiratory Rate 16 09/27/18 10:00 Blood Pressure 139/85 09/27/18 10:00 O2 Sat by Pulse Oximetry (%) 98 09/27/18 09:00 Constitutional: Yes: Well Nourished, No Distress, Calm Eyes: Yes: Conjunctiva Clear, EOM Intact HENT: Yes: Atraumatic, Normocephalic Neck: Yes: Supple, Trachea Midline Cardiovascular: Yes: Regular Rate and Rhythm, S1, S2 Respiratory: Yes: Regular, CTA Bilaterally Gastrointestinal: Yes: Normal Bowel Sounds, Soft ...Rectal Exam: Yes: Deferred Genitourinary: No: CVA Tenderness - Left, CVA Tenderness - Right Musculoskeletal: No: Joint Stiffness, Joint Swelling Extremities: No: Cold, Cool Edema: No Peripheral Pulses WNL: Yes Peripheral Pulses: Left Radial: 2+, Right Radial: 2+, Left Doralis Pedis: 2+, Right Dorsalis Pedis: 2+, Left Femoral: 2+, Right Femoral: 2+ Integumentary: Yes: Incision. No: Jaundice, Rash Wound/Incision: Yes: Clean/Dry, Well Approximated, [place] Intact, Open to air Neurological: Yes: Alert, Oriented Psychiatric: Yes: Alert, Oriented Labs: CBC, BMP 09/26/18 06:15 09/23/18 07:30 INR, PTT INR 1.23 (0.83-1.09) H 09/13/18 12:36 Problem List - Problems (1) Rectal perforation Assessment/Plan: 48yo female with less then 24hrs post of from vaginal hysterectomy pneumoperitoniem and even a small amount of hemoperitoneium is not concerning post operative day one. POD#14 s/p total vaginal hysterectomy POD#11 s/p Diagnostic laparoscopy, repair of rectal perforation, right ovarian cystotomy. Clincally improved but persistent leukocytosis 13-16K with thrombocytosis, prompted reimaging. Discussed drainage with Dr. Gustafson who stated the collections were mostly phlegmon and would not be amenable to IR drainage. Regular diet ID for PO antibiotics (consider long course) trend labs OOB and ambulate psych consult consider discharge home on PO antibiotics will follow Code(s): K63.1 - PERFORATION OF INTESTINE (NONTRAUMATIC) (2) Hemoperitoneum Code(s): K66.1 - HEMOPERITONEUM (3) Pneumoperitoneum Code(s): K66.8 - OTHER SPECIFIED DISORDERS OF PERITONEUM (4) Abdominal pain in female patient Code(s): R10.9 - UNSPECIFIED ABDOMINAL PAIN (5) H/O total vaginal hysterectomy Code(s): Z90.710 - ACQUIRED ABSENCE OF BOTH CERVIX AND UTERUS
[2018-09-27] MEDS ORDERED: PT OWN MED DRAWER 7, Y5N ONE (15:19)
--- NOTE | 2018-09-27 19:00 | CON.PSY ---
Psychiatry Consult Chief Complaint: 48 Year old female seen for Psych eval. She has been int Hospital for about 10 days now and spent some time in ICU from complications of Vaginal HYsterectomy. Patient has no history of Psych Illness.She reported feeling depresed and had crying spells. But, reports feeling better gradually. Symptoms: reports: Depressed Mood, Anxiety - Previous Psychiatric Treatment Outpatient: None Inpatient: None - Previous Substance Abuse Treatment Outpatient: None Inpatient: None - Current Medications Current Medications: Active Medications Acetaminophen (Tylenol -) 325 mg PO Q4H PRN PRN Reason: PAIN LEVEL 4 - 6 Last Admin: 09/26/18 20:14 Dose: 325 mg Acetaminophen (Tylenol -) 325 mg PO Q4H PRN PRN Reason: PAIN LEVEL 7 - 10 Last Admin: 09/27/18 13:12 Dose: 325 mg Docusate Sodium (Colace -) 100 mg PO BID [facility] Last Admin: 09/27/18 09:54 Dose: Not Given Lactobacillus Acidophilus (Bacid -) 1 tab PO DAILY [facility] Last Admin: 09/27/18 09:54 Dose: Not Given Levofloxacin (Levaquin -) 500 mg PO DAILY@0600 [facility] Last Admin: 09/27/18 06:17 Dose: 500 mg Metronidazole (Flagyl -) 500 mg PO TIDAC [facility] Last Admin: 09/27/18 17:07 Dose: 500 mg Ondansetron HCl (Zofran Injection) 4 mg IVPUSH Q8H [facility] Last Admin: 09/27/18 13:14 Dose: 4 mg Oxycodone HCl (Roxicodone -) 5 mg PO Q4H PRN PRN Reason: PAIN LEVEL 4 - 6 Last Admin: 09/26/18 10:26 Dose: 5 mg Oxycodone HCl (Roxicodone -) 10 mg PO Q4H PRN PRN Reason: PAIN LEVEL 7 - 10 Last Admin: 09/27/18 13:12 Dose: 10 mg Pantoprazole Sodium (Protonix -) 40 mg PO DAILY [facility] Last Admin: 09/27/18 09:54 Dose: Not Given Pramipexole Dihydrochloride (Mirapex -) 0.125 mg PO [facility] Simethicone (Mylicon -) 80 mg PO TID [facility] Last Admin: 09/27/18 13:14 Dose: 80 mg Sumatriptan Succinate (Imitrex -) 100 mg PO PRN PRN PRN Reason: HEADACHE - Allergies Allergies: Allergies Allergy/AdvReac Type Severity Reaction Status Date / Time Penicillins Allergy Severe Swelling Verified 09/12/18 06:57 - Current Living Status Usual Living Arrangement: With Spouse - Current Mental Status Evaluation Appearance: Well Groomed Attitude: Cooperative - Affect Affect: Constrictive Appropriateness: Appropriate to Content - Mood Mood: Depressed - Speech/Language Expressive: Coherent - Psychomotor Activity Psychomotor Activity: Slowed - Thought Process Thought Process: Intact - Thought Content Hallucinations: Absent Delusions: Absent - Self Perception Self Perception: No Impairment - Cognition Attention: Alert Orientation: Time Memory, Immediate Recall: Intact Memory, Short Term: 3/3 Memory, Remote with Promptin/3 - Concentration Serial Sevens Intact: Yes Simple Calculations Intact: Yes - Abstraction Proverb Interpretation: Intact Judgement: Intact - Insight Insight: Intact - Impulse Control Impulse Control: Good Control - Homicidal Ideation Homicidal Ideation: No Assessment/Plan 1) No need for anti depressants at this time. 2) Refer for Psychology consult with Dr. Lowe for supportive Therapy.
[2018-09-27] MEDS: PRAMIPEXOLE DIHYDROCHLORIDE 0.125 MG TABLET PO SCH (21:28)
[2018-09-28] MEDS: ONDANSETRON 4 MG/2 ML VIAL IVPUSH SCH ×4 (03:30→20:21)
[2018-09-28] MEDS: metroNIDAZOLE 250 MG TABLET PO SCH (06:01)
[2018-09-28] MEDS: SIMETHICONE 80 MG TAB.CHEW (FP) PO SCH ×3 (06:02→22:02)
[2018-09-28] MEDS: oxyCODONE HCL 5 MG TABLET PO PRN ×3 (07:32→20:23)
[2018-09-28] MEDS: ACETAMINOPHEN 325 MG TABLET (FP) PO PRN ×3 (07:33→20:22)
[2018-09-28 08:23] LABS: BASO % 0.5 % (0-2.0); EOS % 1.7 % (0-4.5); HEMATOCRIT 30.9 % (32.4-45.2); HEMOGLOBIN 10.1 GM/dL (10.7-15.3); LYMPH % 11.2 % (8-40); MCH 29.7 pg (25.7-33.7); MCHC 32.8 g/dl (32.0-36.0); MEAN CELL VOLUME 90.5 fl (80-96); MEAN PLT VOLUME 6.8 fl (7.5-11.1); MONO % 5.7 % (3.8-10.2); NEUT % 80.9 % (42.8-82.8); RBC 3.41 M/mm3 (3.60-5.2); RDW 15.2 % (11.6-15.6); WHITE BLOOD COUNT 11.5 K/mm3 (4.0-10.0)
[2018-09-28 08:37] LABS: PLATELET COUNT 1162 K/MM3 (134-434)
[2018-09-28] MEDS: DOCUSATE SODIUM 100 MG CAPSULE (FP) PO SCH ×2 (09:40→22:50)
[2018-09-28] MEDS: PANTOPRAZOLE 40 MG TABLET (FP) PO SCH (09:40)
[2018-09-28] MEDS: LACTOBACILLUS ACIDOPHILUS 1 TABLET PO SCH (09:40)
--- NOTE | 2018-09-28 10:37 | PN ---
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 Called postop in consultation POD#3 s/p total vaginal hysterectomy. She had a ct scan showing hemo and pneumoperitonuim. Stable since surgery. Nausea has improved and she has a soft bowel movement and flatus regularly. tolerating regular diet but has a poor appetitie. Re-imaged and has collections. Patient is exprssing feelings of sadness and fear. - Current Medication List Current Medications: Active Medications Acetaminophen (Tylenol -) 325 mg PO Q4H PRN PRN Reason: PAIN LEVEL 4 - 6 Last Admin: 09/26/18 20:14 Dose: 325 mg Acetaminophen (Tylenol -) 325 mg PO Q4H PRN PRN Reason: PAIN LEVEL 7 - 10 Last Admin: 09/28/18 07:33 Dose: 325 mg Aspirin (Ecotrin -) 81 mg PO DAILY [facility] Docusate Sodium (Colace -) 100 mg PO BID [facility] Last Admin: 09/28/18 09:40 Dose: Not Given Lactobacillus Acidophilus (Bacid -) 1 tab PO DAILY [facility] Last Admin: 09/28/18 09:40 Dose: 1 tab Levofloxacin (Levaquin -) 500 mg PO DAILY@0600 [facility] Last Admin: 09/28/18 06:02 Dose: 500 mg Metronidazole (Flagyl -) 500 mg PO TIDAC [facility] Last Admin: 09/28/18 06:01 Dose: 500 mg Ondansetron HCl (Zofran Injection) 4 mg IVPUSH Q8H [facility] Last Admin: 09/28/18 07:30 Dose: 4 mg Pantoprazole Sodium (Protonix -) 40 mg PO DAILY [facility] Last Admin: 09/28/18 09:40 Dose: 40 mg Pramipexole Dihydrochloride (Mirapex -) 0.125 mg PO HS [facility] Last Admin: 09/27/18 21:28 Dose: 0.125 mg Simethicone (Mylicon -) 80 mg PO TID [facility] Last Admin: 09/28/18 06:02 Dose: 80 mg Sumatriptan Succinate (Imitrex -) 100 mg PO PRN PRN PRN Reason: HEADACHE Last Admin: 09/28/18 06:01 Dose: 100 mg - Objective Vital Signs: Vital Signs Temperature 98.1 F 09/28/18 10:00 Pulse Rate 106 H 09/28/18 10:00 Respiratory Rate 18 09/28/18 10:00 Blood Pressure 129/77 09/28/18 10:00 O2 Sat by Pulse Oximetry (%) 98 09/27/18 21:00 Vital Signs Period Temp Pulse Resp BP Sys/Jeffery Pulse Ox Last 24 Hr 98.1 F-98.8 F 86-106 17-20 109-133/57-81 98 Constitutional: Yes: Well Nourished, No Distress, Calm, Thin Eyes: Yes: Conjunctiva Clear, EOM Intact HENT: Yes: Atraumatic, Normocephalic Neck: Yes: Supple, Trachea Midline Cardiovascular: Yes: Regular Rate and Rhythm, S1, S2 Respiratory: Yes: Regular, CTA Bilaterally Gastrointestinal: Yes: Normal Bowel Sounds, Soft. No: Tenderness ...Rectal Exam: Yes: Deferred Genitourinary: No: CVA Tenderness - Left, CVA Tenderness - Right Breast(s): No: Mass, Skin Changes Musculoskeletal: No: Joint Stiffness, Joint Swelling Extremities: No: Cool, Cyanosis Edema: No Peripheral Pulses WNL: Yes Peripheral Pulses: Left Radial: 2+, Right Radial: 2+, Left Doralis Pedis: 2+, Right Dorsalis Pedis: 2+, Left Femoral: 2+, Right Femoral: 2+ Wound/Incision: Yes: Clean/Dry, Well Approximated, [place] Intact, Open to air Neurological: Yes: Alert, Oriented Psychiatric: Yes: Alert, Oriented Labs: CBC, BMP 09/28/18 07:54 09/23/18 07:30 INR, PTT INR 1.23 (0.83-1.09) H 09/13/18 12:36 Problem List - Problems (1) Rectal perforation Assessment/Plan: 48yo female with less then 24hrs post of from vaginal hysterectomy pneumoperitoniem and even a small amount of hemoperitoneium is not concerning post operative day one. POD#14 s/p total vaginal hysterectomy POD#11 s/p Diagnostic laparoscopy, repair of rectal perforation, right ovarian cystotomy. Clincally improved but persistent leukocytosis 13-16K with thrombocytosis, prompted reimaging. Discussed drainage with Dr. Gustafson who stated the collections were mostly phlegmon and would not be amenable to IR drainage. Regular diet ID for PO antibiotics (consider long course) trend labs OOB and ambulate psych consult consider discharge home on PO antibiotics will follow Code(s): K63.1 - PERFORATION OF INTESTINE (NONTRAUMATIC) (2) Hemoperitoneum Code(s): K66.1 - HEMOPERITONEUM (3) Pneumoperitoneum Code(s): K66.8 - OTHER SPECIFIED DISORDERS OF PERITONEUM (4) Abdominal pain in female patient Code(s): R10.9 - UNSPECIFIED ABDOMINAL PAIN (5) H/O total vaginal hysterectomy Code(s): Z90.710 - ACQUIRED ABSENCE OF BOTH CERVIX AND UTERUS
[2018-09-28] MEDS: ASPIRIN COATED 81 MG TABLET.EC PO SCH (11:10)
[2018-09-28] MEDS ORDERED: oxyCODONE HCL 5 MG TABLET PO PRN (15:03)
--- NOTE | 2018-09-28 16:00 | PN ---
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 Pt concerned and saved pad to show myself and Dr Joseph Pt seen by neurology and Psych consults appreciated - Current Medications Current Medications: Active Medications Acetaminophen (Tylenol -) 325 mg PO Q4H PRN PRN Reason: PAIN LEVEL 4 - 6 Last Admin: 09/28/18 13:00 Dose: 325 mg Acetaminophen (Tylenol -) 325 mg PO Q4H PRN PRN Reason: PAIN LEVEL 7 - 10 Last Admin: 09/28/18 07:33 Dose: 325 mg Aspirin (Ecotrin -) 81 mg PO DAILY [facility] Last Admin: 09/28/18 11:10 Dose: 81 mg Docusate Sodium (Colace -) 100 mg PO BID [facility] Last Admin: 09/28/18 09:40 Dose: Not Given Lactobacillus Acidophilus (Bacid -) 1 tab PO DAILY [facility] Last Admin: 09/28/18 09:40 Dose: 1 tab Levofloxacin (Levaquin -) 500 mg PO DAILY@0600 [facility] Last Admin: 09/28/18 06:02 Dose: 500 mg Ondansetron HCl (Zofran Injection) 4 mg IVPUSH Q8H [facility] Last Admin: 09/28/18 12:55 Dose: 4 mg Oxycodone HCl (Roxicodone -) 5 mg PO Q4H PRN PRN Reason: PAIN 4-6 Last Admin: 09/28/18 15:21 Dose: 5 mg Oxycodone HCl (Roxicodone -) 10 mg PO Q4H PRN PRN Reason: PAIN 7-10 Pantoprazole Sodium (Protonix -) 40 mg PO DAILY [facility] Last Admin: 09/28/18 09:40 Dose: 40 mg Pramipexole Dihydrochloride (Mirapex -) 0.125 mg PO HS [facility] Last Admin: 09/27/18 21:28 Dose: 0.125 mg Simethicone (Mylicon -) 80 mg PO TID [facility] Last Admin: 09/28/18 14:52 Dose: 80 mg Sumatriptan Succinate (Imitrex -) 100 mg PO PRN PRN PRN Reason: HEADACHE Last Admin: 09/28/18 06:01 Dose: 100 mg - Objective Vital Signs: Vital Signs Temperature 98.1 F 09/28/18 10:00 Pulse Rate 106 H 09/28/18 10:00 Respiratory Rate 18 09/28/18 10:00 Blood Pressure 129/77 09/28/18 10:00 O2 Sat by Pulse Oximetry (%) 98 09/27/18 21:00 Constitutional: Yes: Well Nourished, No Distress Respiratory: Yes: WNL, Regular Extremities: Yes: WNL Edema: No Wound/Incision: Yes: Clean/Dry, Well Approximated Neurological: Yes: WNL, Alert, Oriented Labs Lab Results: CBC, BMP 09/28/18 07:54 09/23/18 07:30 Problem List - Problems (1) H/O total vaginal hysterectomy Code(s): Z90.710 - ACQUIRED ABSENCE OF BOTH CERVIX AND UTERUS (2) Rectal perforation Code(s): K63.1 - PERFORATION OF INTESTINE (NONTRAUMATIC) Assessment/Plan pt with vaginal concerns with brown discharge from vagina -reassurance given Ho vaginal hysterectomy SP repair of rectal perforation Vulvar pain improved Migraine headaches- improved on meds Restless Limbs Syndrome Worsened by Toxic Metabolic Encephalopathy (post-op infection) PCn allergy Anemia HCT 30% IMPROVED Plan TIBC/iron/ferritin levels cbc in am Continue present management advised will send home when cleared will discuss with Dr Joseph
[2018-09-28] MEDS: PRAMIPEXOLE DIHYDROCHLORIDE 0.125 MG TABLET PO SCH (22:02)
[2018-09-29] MEDS: oxyCODONE HCL 5 MG TABLET PO PRN ×3 (00:29→09:36)
[2018-09-29] MEDS: ACETAMINOPHEN 325 MG TABLET (FP) PO PRN ×3 (00:30→09:38)
[2018-09-29] MEDS: ONDANSETRON 4 MG/2 ML VIAL IVPUSH SCH (03:09)
[2018-09-29] MEDS: SIMETHICONE 80 MG TAB.CHEW (FP) PO SCH (05:47)
[2018-09-29 06:06] VITALS: PULSE 88
--- NOTE | 2018-09-29 08:50 | PN ---
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 Pt doing well ready for discharge - Current Medications Current Medications: Active Medications Acetaminophen (Tylenol -) 325 mg PO Q4H PRN PRN Reason: PAIN LEVEL 4 - 6 Last Admin: 09/29/18 05:49 Dose: 325 mg Acetaminophen (Tylenol -) 325 mg PO Q4H PRN PRN Reason: PAIN LEVEL 7 - 10 Last Admin: 09/28/18 07:33 Dose: 325 mg Aspirin (Ecotrin -) 81 mg PO DAILY [facility] Last Admin: 09/28/18 11:10 Dose: 81 mg Docusate Sodium (Colace -) 100 mg PO BID [facility] Last Admin: 09/28/18 22:50 Dose: 100 mg Lactobacillus Acidophilus (Bacid -) 1 tab PO DAILY [facility] Last Admin: 09/28/18 09:40 Dose: 1 tab Ondansetron HCl (Zofran Injection) 4 mg IVPUSH Q8H [facility] Last Admin: 09/29/18 03:09 Dose: 4 mg Oxycodone HCl (Roxicodone -) 5 mg PO Q4H PRN PRN Reason: PAIN 4-6 Last Admin: 09/29/18 05:48 Dose: 5 mg Oxycodone HCl (Roxicodone -) 10 mg PO Q4H PRN PRN Reason: PAIN 7-10 Pantoprazole Sodium (Protonix -) 40 mg PO DAILY [facility] Last Admin: 09/28/18 09:40 Dose: 40 mg Pramipexole Dihydrochloride (Mirapex -) 0.125 mg PO HS [facility] Last Admin: 09/28/18 22:02 Dose: 0.125 mg Simethicone (Mylicon -) 80 mg PO TID [facility] Last Admin: 09/29/18 05:47 Dose: 80 mg Sumatriptan Succinate (Imitrex -) 100 mg PO PRN PRN PRN Reason: HEADACHE Last Admin: 09/28/18 06:01 Dose: 100 mg - Objective Vital Signs: Vital Signs Temperature 98.4 F 09/29/18 06:00 Pulse Rate 88 09/29/18 06:00 Respiratory Rate 20 09/29/18 06:00 Blood Pressure 105/58 L 09/29/18 06:00 O2 Sat by Pulse Oximetry (%) 99 09/28/18 21:00 Constitutional: Yes: Well Nourished, No Distress Gastrointestinal: Yes: WNL, Soft Extremities: Yes: WNL Edema: No Wound/Incision: Yes: Clean/Dry Neurological: Yes: WNL, Alert, Oriented Labs Lab Results: CBC, BMP 09/28/18 07:54 09/23/18 07:30 Problem List - Problems (1) H/O total vaginal hysterectomy Code(s): Z90.710 - ACQUIRED ABSENCE OF BOTH CERVIX AND UTERUS (2) Rectal perforation Code(s): K63.1 - PERFORATION OF INTESTINE (NONTRAUMATIC) Assessment/Plan Ho vaginal hysterectomy SP repair of rectal perforation Stable Plan Pt discharged this morn as pe Dr Opal quintero in office with Dr Guerrero
[2018-09-29] MEDS ORDERED: PT OWN MED DRAWER 7, Y5N ONE (09:26)
[2018-09-29] MEDS: DOCUSATE SODIUM 100 MG CAPSULE (FP) PO SCH (09:26)
[2018-09-29] MEDS: LACTOBACILLUS ACIDOPHILUS 1 TABLET PO SCH (09:26)
[2018-09-29] MEDS: ASPIRIN COATED 81 MG TABLET.EC PO SCH (09:27)
[2018-09-29] MEDS: PANTOPRAZOLE 40 MG TABLET (FP) PO SCH (09:27)
[2018-09-29 10:50] VITALS: BP 104/65; TEMP 98.1
[2018-09-29 19:27] VITALS: BMI 20.9
--- NOTE | 2018-10-03 08:50 | OP ---
DATE OF OPERATION: 09/16/2018 PREOPERATIVE DIAGNOSIS: Increased pneumoperitoneum. POSTOPERATIVE DIAGNOSIS: Ovarian cyst. PROCEDURE: Right ovarian cystectomy. DESCRIPTION OF PROCEDURE: Patient was taken to the operating room 4 days after prior vaginal hysterectomy. Patient was then taken to operating room for a diagnostic laparoscopy due to increasing pneumoperitoneum. Before diagnostic laparoscopy, the vaginal cuff was then examined. Vaginal cuff was found to be intact. Then the diagnostic laparoscopy was performed. While doing diagnostic laparoscopy, a small perforation of the rectum was noted, and general surgeon proceeded with laparotomy. During laparotomy, a large right ovarian cyst was noted, and right ovarian cystectomy was performed. Surgeon proceeded with repair of the rectal perforation. Upon completion of the procedure, incision was closed and taken back to ICU in stable condition. IVORY KOVACS M.D. [id number]
== END 2018-09-29 10:37 | disposition home or self-care (01) | DRG 742 ==
LOC: JASUSAT 04:57 → J6S 15:07 → JASUSAT 15:08 → JICU 09-13 12:53 → J6S 09-13 12:53 → UNDOFXSDCSVC 09-13 12:53 → JICU 09-13 12:53 → J6S 09-21 18:04
PROVIDERS: ADMIT Obstetrics & Gynecology; ATTEND Obstetrics & Gynecology
PROC: 0UT97ZZ Resection of Uterus, Via Natural or Artificial Opening (ICD-10-PCS; principal; 2018-09-12 07:30)
PROC: 0UB00ZZ Excision of Right Ovary, Open Approach (ICD-10-PCS; 2018-09-16)
PROC: 0DCW0ZZ Extirpation of Matter from Peritoneum, Open Approach (ICD-10-PCS; 2018-09-16)
PROC: 3E1M38Z Irrigation of Peritoneal Cavity using Irrigating Substance, Percutaneous Approach (ICD-10-PCS; 2018-09-16)
PROC: 30233N1 Transfusion of Nonautologous Red Blood Cells into Peripheral Vein, Percutaneous Approach (ICD-10-PCS; 2018-09-16)
PROC: 0DQP0ZZ Repair Rectum, Open Approach (ICD-10-PCS; 2018-09-16 16:50)
DX: D25.9 Leiomyoma of uterus, unspecified (principal); K66.1 Hemoperitoneum; K63.1 Perforation of intestine (nontraumatic); K65.8 Other peritonitis; G93.41 Metabolic encephalopathy; J95.89 Other postprocedural complications and disorders of respiratory system, not elsewhere classified; D62 Acute posthemorrhagic anemia; J98.11 Atelectasis; I97.89 Other postprocedural complications and disorders of the circulatory system, not elsewhere classified; J90 Pleural effusion, not elsewhere classified; N39.0 Urinary tract infection, site not specified; Y83.8 Other surgical procedures as the cause of abnormal reaction of the patient, or of later complication, without mention of misadventure at the time of the procedure; R06.02 Shortness of breath; G43.909 Migraine, unspecified, not intractable, without status migrainosus; R07.89 Other chest pain; K66.8 Other specified disorders of peritoneum; N80.9 Endometriosis, unspecified; R63.4 Abnormal weight loss; Z68.21 Body mass index [BMI] 21.0-21.9, adult; R10.2 Pelvic and perineal pain; R00.0 Tachycardia, unspecified; R91.1 Solitary pulmonary nodule; R10.9 Unspecified abdominal pain; N83.291 Other ovarian cyst, right side; N94.89 Other specified conditions associated with female genital organs and menstrual cycle; D72.828 Other elevated white blood cell count; Z88.0 Allergy status to penicillin; G25.81 Restless legs syndrome; D47.3 Essential (hemorrhagic) thrombocythemia
CPT/HCPCS: 36415; 36430; 36511; 71045-TC-FY; 71275-TC; 74018-TC-FY; 74174-TC; 74176-TC; 74177-TC; 80048; 80053; 81003; 82728; 82962; 83540; 83550; 83735; 84100; 84134; 84703; 85025; 85027; 85610; 85730; 86850; 86900; 86901; 86922; 87040; 87086; 87186; 88305-TC; 88307-TC; 93005; 93010; 94010; 94760; 97116-GP; 97162-GP; G0480; J0131; J7030; P9038; P9058; Q0162; Q9967